=== PATIENT | female | born 1955 | race Caucasian/White ===

== ENCOUNTER 2018-10-30 14:02 | Inpatient (IN) | payer MEDICARE, BC ==
--- NOTE | 2018-10-30 17:17 | ED ---
Abdominal Pain/Female - HPI Summary HPI Summary: This patient is a 63 year old female presenting to [facility] with a chief complaint of abd pain since yesterday. Patient is recently recovering from a sinus infection with azithromycin. Yesterday, patient began having abdominal cramping. Patient states that it feels like gas that she cannot get rid of. The pain also radiates to bilateral shoulder blades. The pain is rated 5/10 in severity. Symptoms aggravated by nothing. Symptoms alleviated by nothing. The patient treated the sx with OTC medications ASPHALT BLENDER. Patient additionally reports nausea. Patient denies vomiting. - History of Current Complaint Chief Complaint: EDAbdPain Stated Complaint: TERRIBLE ABD CRAMPS PER PT Time Seen by Provider: 10/30/18 16:13 Hx Obtained From: Patient Onset/Duration: Sudden Onset, Still Present Timing: Constant Severity Currently: Moderate Pain Intensity: 5 Pain Scale Used: 0-10 Numeric Radiates: Yes Radiates to: Other - shoulder blades Character: Cramping Aggravating Factor(s): Nothing Alleviating Factor(s): Nothing Associated Signs and Symptoms: Positive: Nausea. Negative: Vomiting Allergies/Adverse Reactions: Allergies Allergy/AdvReac Type Severity Reaction Status Date / Time meperidine [From Demerol] Allergy Nausea And Verified 10/30/18 14:09 Vomiting pineapple Allergy Hives Verified 10/30/18 14:09 PMH/Surg Hx/FS Hx/Imm Hx Previously Healthy: No Endocrine/Hematology History: Reports: Hx Thyroid Disease Denies: Hx Diabetes Cardiovascular History: Reports: Hx Hypertension Respiratory History: Denies: Hx Asthma, Hx Chronic Obstructive Pulmonary Disease (COPD) GI History: Denies: Hx Ulcer EENT History: Denies: Hx Deafness, Hx Hearing Problem - Cancer History Hx Chemotherapy: No Hx Radiation Therapy: No - Surgical History Surgery Procedure, Year, and Place: cataracts - corneal transplants. 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 ankle, vitaly, tubal ligation, knee, t&a Infectious Disease History: No Infectious Disease History: Denies: Hx Clostridium Difficile, Hx Hepatitis, Hx Human Immunodeficiency Virus (HIV), Hx of Known/Suspected MRSA, Hx Shingles, Hx Tuberculosis, Traveled Outside the [place] in Last 30 Days - Family History Known Family History: Positive: Hypertension - Social History Lives: With Family Alcohol Use: None Hx Substance Use: No Substance Use Type: Reports: None Hx Tobacco Use: No Smoking Status (MU): Never Smoked Tobacco Review of Systems Negative: Fever Positive: Abdominal Pain, Nausea. Negative: Vomiting All Other Systems Reviewed And Are Negative: Yes Physical Exam - Summary Physical Exam Summary: Constitutional: Well-developed, Well-nourished, Alert. Skin: Warm, Dry HENT: Normocephalic; Atraumatic Eyes: Conjunctiva normal Neck: Musculoskeletal ROM normal neck. Cardio: Rhythm regular, rate normal, Heart sounds normal; Intact distal pulses; The pedal pulses are 2+ and symmetric. Radial pulses are 2+ and symmetric. Pulmonary/Chest wall: Effort normal. Abd: Soft, Musculoskeletal: Normal Lymph: Normal Neuro: Alert, Oriented x3 Psych: Mood and affect Normal Triage Information Reviewed: Yes Vital Signs On Initial Exam: Initial Vitals Temp Pulse Resp BP Pulse Ox 99.4 F 91 16 131/65 95 10/30/18 14:09 10/30/18 14:09 10/30/18 14:09 10/30/18 14:09 10/30/18 14:09 Vital Signs Reviewed: Yes Diagnostics - Vital Signs Vital Signs Temp Pulse Resp BP Pulse Ox 10/30/18 16:00 79 96 10/30/18 15:52 83 95 10/30/18 14:09 99.4 F 91 16 131/65 95 - Laboratory Result Diagrams: 10/30/18 18:59 10/30/18 18:59 Lab Statement: Any lab studies that have been ordered have been reviewed, and results considered in the medical decision making process. - CT CT Abd/Pel CT Interpretation Completed By: Radiologist Summary of CT Findings: CT Abd/Pel reveals, per radiologist, IMPRESSION: 1. Findings consistent with perforated viscus with moderate amount of free intraperitoneal air. Wall thickening of the distal stomach and proximal duodenum with adjacent inflammatory change raises the possibility of perforated peptic ulcer disease. Recommend surgical consultation. 2. No evidence of bowel obstruction 3. Inflammatory change adjacent to head of pancreas, likely secondary to adjacent distal gastric/duodenal pathology, but pancreatitis is not excluded. Suggest correlation with amylase and lipase levels. 4. Small subcapsular fluid collection in left lobe of liver, likely a small cyst cyst. However, small abscess is not excluded. 5. Post cholecystectomy.ED physician has reviewed this radiology report. - EKG 1735 Cardiac Rate: NL EKG Rhythm: Sinus Rhythm - 91 BPM Summary of EKG Findings: An EKG, taken 1735, reveals NSR (91 BPM), normal SD, normal QRS, normal QTc, normal axis, normal ST, flattened T-waves in aVF, nonspecific EKG. Abdominal Pain Fem Course/Dx - Course Course Of Treatment: This patient is a 63 year old female presenting to [facility] with a chief complaint of abd pain since yesterday. Patient is recently recovering from a sinus infection with azithromycin. Yesterday, patient began having abdominal cramping. Patient states that it feels like gas that she cannot get rid of. The pain is rated 5/10 in severity. An EKG, taken 1735, reveals NSR (91 BPM), normal SD, normal QRS, normal QTc, normal axis, normal ST , flattened T-waves in aVF, nonspecific EKG. CT Abd/Pel reveals, per radiologist , IMPRESSION: 1. Findings consistent with perforated viscus with moderate amount of free intraperitoneal air. Wall thickening of the distal stomach and proximal duodenum with adjacent inflammatory change raises the possibility of perforated peptic ulcer disease. Recommend surgical consultation. 2. No evidence of bowel obstruction 3. Inflammatory change adjacent to head of pancreas, likely secondary to adjacent distal gastric/duodenal pathology, but pancreatitis is not excluded. Suggest correlation with amylase and lipase levels. 4. Small subcapsular fluid collection in left lobe of liver, likely a small cyst cyst. However, small abscess is not excluded. 5. Post cholecystectomy.ED physician has reviewed this radiology report. Bloodwork Obtained. Urinalysis Obtained. In the ED course the patient was given NS 0.9% bolus IV, Zofran, Morphine, Piperacillin, Hydromorphone, Iohexol. The pt is hemodynamically stable, alert and oriented x3. We discussed patient care with Dr. Alamo (Surgery) at 1999 and they agreed to admit the patient. Patient will be admitted with a dx of perforated viscus. The patient is agreeable with this plan. - Diagnoses Provider Diagnoses: Perforated viscus - Provider Notifications Discussed Care Of Patient With: Efrain Alamo - Surgery Time Discussed With Above Provider: 20:00 - We discussed patient care with Dr. Alamo (Surgery) at 1999 and they agreed to admit the patient. Discharge - Sign-Out/Discharge Documenting (check all that apply): Patient Departure Patient Received Moderate/Deep Sedation with Procedure: No - Discharge Plan Condition: Stable Disposition: ADMITTED TO [facility] - Billing Disposition and Condition Condition: STABLE Disposition: Admitted to [facility] - Attestation Statements Document Initiated by Aidan: Yes Documenting Alejoibe: Garrison Kirk Provider For Whom Aidan is Documenting (Include Credential): Julianne Cortez MD Scribe Attestation: Garrison Castillo, scribed for Julianne Ball MD on 10/30/18 at 2148. Scribe Documentation Reviewed: Yes Provider Attestation: The documentation as recorded by the Garrison antonio accurately reflects the service I personally performed and the decisions made by me, Julianne Ball MD Status of Scribe Document: Viewed
[2018-10-30] MEDS ORDERED: Ondansetron INJ* 2 MG/ML VIAL IV ONE (17:33)
[2018-10-30] MEDS ORDERED: NS 0.9% 1000 ML** 1,000 ML IV ONE (17:33)
[2018-10-30] MEDS ORDERED: Morphine 4 MG/ML VIAL (1 ml) 4 MG/ML VIAL ONE (17:43)
[2018-10-30] MEDS: Morphine 4 MG/ML VIAL (1 ml) 4 MG/ML VIAL IV PRN (18:08)
[2018-10-30] MEDS ORDERED: HYDROmorphone INJ1* 1 MG/ML SYRINGE IV ONE (19:04)
[2018-10-30] MEDS ORDERED: Metoclopramide IV* 5 MG/ML 2 ML VIAL IV ONE (19:04)
[2018-10-30 19:06] LABS: ABS Basophils 0.1 10^3/ul (0-0.2); ABS Eosinophils 0 10^3/ul (0-0.6); ABS Lymphocytes 1.8 10^3/ul (1.0-4.8); ABS Monocytes 1.1 10^3/ul (0-0.8); ABS Neutrophils 14.3 10^3/ul (1.5-7.7); ABS Nucleated RBC 0 10^3/ul; Eosinophil % 0.1 %; Hematocrit 39 % (33-41); Hemoglobin 13.1 g/dL (12.0-16.0); Lymphocyte % 10.4 %; Mean Corpuscular HGB Conc 34 g/dL (31-36); Mean Corpuscular Hemoglobin 32 pg (27-31); Mean Corpuscular Volume 94 fL (80-97); Mean Platelet Volume 8.2 fL (7.4-10.4); Nucleated Red Blood Cells % 0; Platelet Count 238 10^3/uL (150-450); Red Blood Count 4.14 10^6 /uL (3.70-4.87); Red Cell Distribution Width 15 % (10.5-15); White Blood Count 17.3 10^3/uL (3.5-10.8)
[2018-10-30 19:24] LABS: Albumin 3.7 g/dL (3.2-5.2); C Reactive Protein 288.42 mg/L (<8.01); Calcium 10.1 mg/dL (8.6-10.3); EGFR African American 85.9 (>60); Globulin 3.6 g/dL (2-4); Total Bilirubin 1.3 mg/dL (0.2-1.0); Total Protein 7.3 g/dL (6.4-8.9)
[2018-10-30] MEDS ORDERED: Iohexol 300* (CONTRAST) 10 ML SDV IV ONE (19:27)
[2018-10-30 19:38] LABS: Troponin I 0.01 ng/mL (<0.04)
[2018-10-30] MEDS ORDERED: Piperacillin/Tazobac (*) 3.375 GM BAG ONE (20:50)
[2018-10-30] MEDS: ED Piperacillin/Tazobac 3.375 3.375 GM/100 ML PREMIX.SET IVPB ONE (20:52)
[2018-10-30] MEDS ORDERED: KETAMINE HCL* 50 MG/ML 10 ML VIAL ONE (20:53)
[2018-10-30] MEDS ORDERED: Midazolam* 1 MG/ML 5 ML VIAL (5 MG) ONE (20:53)
[2018-10-30] MEDS ORDERED: fentaNYL* 50 MCG/ML 2 ML VIAL (100 MCG VIAL) ONE (20:53)
[2018-10-30] MEDS ORDERED: Piperacillin/Tazobactam VIAL*) 3.375 GM VIAL (COMPD & OVERRIDE) IVPB ONE (21:23)
[2018-10-30] MEDS ORDERED: Bupivacaine 0.25% W/EPI* 10 ML SDV ONE (21:31)
[2018-10-30] MEDS ORDERED: Phenylephrine 40 MCG/ML SYRINGE ONE (22:19)
[2018-10-30] MEDS ORDERED: Phenylephrine 10 MG/ML VIAL* 1 ML VIAL ONE (22:19)
[2018-10-30] MEDS ORDERED: PROCHLORPERAZINE INJ 5 MG/ML 2 ML VIAL ONE (22:27)
[2018-10-30] MEDS ORDERED: Propofol* 10 MG/ML 20 ML BTL ONE (22:27)
[2018-10-30] MEDS ORDERED: Glycopyrrolate IV* 0.2 MG/ML 1 ML VIAL ONE ×2 (22:27)
[2018-10-30] MEDS ORDERED: Neostigmine Methylsulfate* 1 MG/ML 10 ML VIAL (1 mg/ml) ONE (22:27)
[2018-10-30] MEDS ORDERED: Dexamethasone IV* 4 MG/ML 1 ML (4 MG) ONE (22:27)
[2018-10-30] MEDS ORDERED: Morphine 4 MG/ML VIAL (1 ml) 4 MG/ML VIAL IV PRN (22:32)
[2018-10-30] MEDS ORDERED: PROCHLORPERAZINE INJ 5 MG/ML 2 ML VIAL IV PRN (22:32)
[2018-10-30] MEDS ORDERED: fentaNYL* 50 MCG/ML 2 ML VIAL (100 MCG VIAL) IV PRN (22:32)
[2018-10-30] MEDS ORDERED: Naloxone* 0.4 MG/ML 1 ML VIAL IV PRN (22:32)
[2018-10-30] MEDS ORDERED: Scopolamine 1.5 mg* PATCH TRANSDERM PRN (22:32)
[2018-10-30] MEDS ORDERED: DiMENhydriNATE IV* 50 MG/ML VIAL IV PUSH PRN (22:32)
[2018-10-30] MEDS ORDERED: Acetaminophen IV 1GM/100ML * 100 ML ONE (22:37)
[2018-10-30] MEDS ORDERED: Ondansetron INJ* 2 MG/ML VIAL IV PRN (22:42)
[2018-10-30] MEDS ORDERED: Metoprolol Tartrate IV* 1 MG/ML 5 ML VIAL ONE (22:47)
[2018-10-30] MEDS ORDERED: hydrALAZINE IV* 20 MG/ML VIAL ONE (22:47)
--- NOTE | 2018-10-30 23:12 | HP ---
CC: Dr. Diaz HISTORY AND PHYSICAL: DATE OF ADMISSION: 10/30/18 CHIEF COMPLAINT: Abdominal pain. HISTORY OF PRESENT ILLNESS: Ms. Khanna is a 63-year-old female who presents with about 24 hours of i ncreasing epigastric and upper abdominal pain. No nausea, no vomiting, no blood in the stool or urin e. No accident, injury or trauma. She was not had anything like this before. Of note, she saw Dr. Diaz a couple of days ago for what was thought to be a sinus infection, got put on Zithromax; one o f the side effects of Zithromax that she read was abdominal cramping, so she thought that was what wa s causing the pain when it first started. Currently she is not having any sinus pressure or cough or phlegm or upper respiratory drainage. PAST MEDICAL HISTORY: Reveals hypertension, Lise's thyroiditis for which she is now on Synthroi d. She has had corneal transplants and has hypertension. She has also had ankle surgery, cholecyste ctomy, tubal ligation, and said she needs knee replacement soon. MEDICATIONS: Include: 1. Levothyroxine 175 mcg once daily. 2. Atorvastatin 40 mg once daily. 3. Amlodipine 2.5 mg once daily. 4. Spironolactone 12.5 mg p.o. once daily. 5. Losartan 50 mg p.o. once daily. 6. Timolol ophthalmic gel 0.5% daily. 7. Aspirin 81 mg once daily. ALLERGIES: She quotes an allergy to DEMEROL, had a lot of nausea and vomiting. Questionable allergy to NAPROXEN, they have upset her stomach, and questionable allergy to HYDROCHLOROTHIAZIDE as they may have given her hypercalcemia. FAMILY HISTORY: Noncontributory. No bleeding tendencies or anesthesia reactions. SOCIAL HISTORY: She is a former smoker, quit about 30 years ago. She is here with her daughter. Giovanna villagran is , lives here in [place], and is currently retired. REVIEW OF SYSTEMS: Multisystem review is negative for any chest pain, heart pain, angina pain or oth er cardiac disease. She does have hypertension as noted above. No previous known ulcer disease. No hepatobiliary disease since her gallbladder was out. No emphysema, bronchitis or chronic lung diseas e. She had mild sinus problems last week, as noted. No colitis, irritable bowel, Crohn's disease or the like. No bleeding tendencies or anesthesia reactions with other surgeries. She does have the o rthopedic issues as noted above. No kidney stones or urinary history. PHYSICAL EXAMINATION GENERAL: She is a well-developed, well-nourished female consistent with stated age. She is obese. She does not appear acutely ill. VITAL SIGNS: Showed temperature 99.2, pulse 88 and regular, respirations 16 and unlabored, O2 satura tions 95% on 2 L nasal cannula, blood pressure 113/85. She is 5 feet 4 inches, 240 pounds, with a BM I of 41. NECK: Supple without any adenopathy. LUNGS: Clear bilaterally. HEART: Regular. I do not think I hear a murmur. ABDOMEN: Obese and quite tender in the epigastrium and right subcostal region, with mild guarding, n ot real rigidity. Lower abdomen is benign. There is some well-healed laparoscopic type incisions. EXTREMITIES: Well perfused and without edema. SKIN: Well perfused. She is not diaphoretic. DIAGNOSTIC STUDIES/LAB DATA: laboratory studies show a white blood count elevated at 17,000 with re latively normal differential. Electrolytes are essentially normal with C-reactive protein elevated a t 288. Creatinine is normal. Amylase is normal. CT scan shows free air in the upper abdomen and les ser sac and some inflammatory change in the periduodenal region. IMPRESSION: This is a 63-year-old female with acute abdominal pain, leukocytosis, and almost rigid a bdomen, with evidence that points towards a probable perforated ulcer. I discussed this with her and with her daughter and I recommend laparoscopy with washout and probable oversewing of the ulcer or patching of the ulcer. They understand the procedure, the rationale, the risks and the expected recovery, and agreed to proceed in the fashion outlined. We will do so exped iently, this evening. [id number]/[facility] #: [id number]
[2018-10-31] MEDS: Lactated Ringers 1000 ML Bag* 1,000 ML IV SCH ×3 (00:37→22:10)
--- NOTE | 2018-10-31 00:58 | OP ---
CC: Dr. Alamo; Dr. Diaz; Dr. Porfirio Mora OPERATIVE REPORT: DATE OF OPERATION: 10/30/18 DATE OF : 51 SURGEON: Dr. Alamo. CRUSHER LOADER EQUIPMENT OPERATOR: None. ANESTHESIOLOGIST: Dr. Palmer. ANESTHESIA: General anesthetic, local infiltration. PRE-OP DIAGNOSIS: Perforated peptic ulcer. POST-OP DIAGNOSIS: Perforated peptic ulcer. OPERATIVE PROCEDURE: Laparoscopic Rahul patch of perforated gastric ulcer. DESCRIPTION OF PROCEDURE: The patient was supine on the operating table. After adequate general ane sthetic, compression stockings, Flaco-Hugger warmer, and intravenous antibiotics, the abdomen was prep ped with antiseptic, draped in a sterile fashion. Local infiltrative anesthesia was administered in the left upper quadrant, 5 mm Visiport cannula was placed under direct vision into the peritoneal spa ce and insufflation was carried out with carbon dioxide. Additional cannulae of 5 mm supraumbilical and 8 mm epigastric were placed. There was fibrinopurulent exudate over the region of the antrum and over the omentum in that region as well as up on to the liver and the falciform ligament in that reg ion. There was what appeared to be about 0.5 cm perforation in the antrum and a lot of inflammatory change in this region. Because of the previous cholecystectomy, a lot of the omentum was adherent up on to the liver on that side, so that was not taken down. The area was irrigated and then interrupte d silk sutures used to bring the omentum down over this site. NG tube was placed as well. The oment um created excellent coverage over the site of the perforation. The operative field was then irrigat ed with additional warm saline solution. Free fluid was suctioned out. Everything was in good condi tion. The cannulae were removed. Pneumoperitoneum was allowed to escape and the incisions were clos ed with 5-0 Vicryl followed by Steri-Strips. She tolerated the procedure well, was awakened, and bro ught to recovery in good condition. COMPLICATIONS: No complications. DRAINS: No drains. SPECIMEN: No pathologic specimen. COUNTS: Sponge and instrument counts were correct. ESTIMATED BLOOD LOSS: Less than 30 mL. The patient did have an NG tube left at the end of the case. [id number]/[facility] #: [id number]
[2018-10-31] MEDS: ceFOXitin 2 GM IVPREMIX* 2 GM/50 ML BAG IVPB SCH ×4 (01:16→17:56)
[2018-10-31] MEDS: ED Piperacillin/Tazobac 3.375 3.375 GM/100 ML PREMIX.SET IVPB ONE (01:32)
[2018-10-31 05:03] LABS: Urine Appearance Clear; Urine Bacteria Absent (Absent); Urine Bilirubin Negative (Negative); Urine Blood 1+ (Negative); Urine Color Yellow; Urine Glucose Negative (Negative); Urine Ketones Trace (Negative); Urine Nitrite Negative (Negative); Urine Protein Negative (Negative); Urine Red Blood Cell Trace(0-2/hpf) (Absent); Urine Specific Gravity 1.032 (1.010-1.030); Urine Squamous Epithelial Cell Present (Absent); Urine Urobilinogen Negative (Negative); Urine White Blood Cell Absent (Absent)
[2018-10-31 05:24] LABS: ABS Basophils 0 10^3/ul (0-0.2); ABS Eosinophils 0 10^3/ul (0-0.6); ABS Lymphocytes 0.6 10^3/ul (1.0-4.8); ABS Monocytes 0.5 10^3/ul (0-0.8); ABS Neutrophils 15.4 10^3/ul (1.5-7.7); ABS Nucleated RBC 0 10^3/ul; Eosinophil % 0 %; Hematocrit 36 % (33-41); Hemoglobin 12.3 g/dL (12.0-16.0); Lymphocyte % 3.9 %; Mean Corpuscular HGB Conc 34 g/dL (31-36); Mean Corpuscular Hemoglobin 32 pg (27-31); Mean Corpuscular Volume 93 fL (80-97); Mean Platelet Volume 8.5 fL (7.4-10.4); Nucleated Red Blood Cells % 0; Platelet Count 188 10^3/uL (150-450); Red Blood Count 3.91 10^6 /uL (3.70-4.87); Red Cell Distribution Width 15 % (10.5-15); White Blood Count 16.5 10^3/uL (3.5-10.8)
[2018-10-31 05:38] LABS: Calcium 9.7 mg/dL (8.6-10.3); EGFR African American 116.9 (>60); EGFR Non-African American 96.6 (>60); Potassium 4.2 mmol/L (3.5-5.0)
--- NOTE | 2018-10-31 09:45 | PN ---
Progress Note - Progress Note Date of Service: 10/31/18 Note: POD#1 s/p perf ulcer Afeb, VS noted Voiding No N/V Pain much better Abd soft, min tender, incis clean Impr: Doing very well s/p perf ulcer repair Keep NGT today/NPO Cont abx UGI tomorrow to eval for leak If OK, D/C NGT and start liqs.
[2018-10-31] MEDS: Enoxaparin(*) 30 MG/0.3 ML SYR SUBCUT SCH (10:30)
[2018-10-31] MEDS: Pantoprazole IV* 40 MG IV SCH (12:15)
--- NOTE | 2018-10-31 13:32 | CONS ---
GASTROENTEROLOGY CONSULT: DATE: 10/31/18 CONSULTING PHYSICIANS: Efrain Alamo, Ruthie Diaz. REASON FOR CONSULT: Perforated gastric ulcer in a woman not treated over the lobsterman for any peptic complaints. 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 on 10/29/18. It seemed to ease off a little bit and she did eat in the afternoon. Pain came back severely on 10/30/18 and she went to the emergency room at 2 p.m. She was found to have free air and an elevated white count and was brought to the operating room where an antral ulcer was found and patched with omentum. There was omentum adherent to her 1999 cholecystectomy site. She has a history of taking some Tums once a month or so. It is hard to pin her down on that frequency. It is also hard to get a true read on her use of ibuprofen in recent months. She was taking ibuprofen daily for knee pain, then had her first cortisone shot in May 2018 and another in August with much reduced ibuprofen use on account of that. She has been on a baby aspirin for many years referencing her father dying of a heart attack at age 55 and other vascular disease in the family and she is quite devoted to that idea of prophylaxis. Her father had peptic ulcer disease with bleeding, but did not require surgery. PAST MEDICAL HISTORY: 1. Morbid obesity - with Weight Watchers, she says she has lost 30 pounds in the last year. 2. Laparoscopic cholecystectomy - 1999. 3. History of hypercalcemia - never pinned down as to a specific endocrine source and recent values in the last year have been normal which she says was been attributed to use of HCTZ 4. Hypothyroidism, on replacement. 5. Tubal ligation, 1987. MEDICATIONS: At home: Losartan 160, Spironolactone 25, Norvasc 2.5, Atorvastatin 40, Levothyroxine 175 mcg. SOCIAL HISTORY: She is and she and her are enthusiastic golfers following the [employer]. She has 2 children. REVIEW OF SYSTEMS: No history of seizure, syncope, TIA, CVA, chest pain, palpitations, acute hepatitis, renal stone or hematuria. She has had colonoscopies in 2004 and 2014, both negative. No skin disease or chronic blood disease. The only CBCs in the system are those associated with this admission. PHYSICAL EXAM: She is a morbidly obese woman, quite import clerk and alert and oriented. She is afebrile. She is in bed postop day 1. HEENT exam is unremarkable. She has no adenopathy. Lungs are clear with equivalent breath sounds. Heart sounds are regular. The abdomen is obese with an incision. Bowel sounds are absent. There is remarkably little tenderness. Extremities show obesity, but no edema. She moves all 4 extremities equally. IMPRESSION: This 63-year-old woman with a perforated ulcer, probably has it due to a personal susceptibility to NSAID effect with aspirin playing a substantial role such that long-term she should be on some sort of acid suppression along with the aspirin. She is very motivated to continue aspirin eventually. A role of Helicobacter pylori will be explored. She will end up going home on an acid radha to be seen in the office in about 6 weeks and upper endoscopy probably about 3 months. [id number]/[facility] #: [id number] TANYA
[2018-10-31] MEDS: HYDROmorphone INJ1* 1 MG/ML SYRINGE IV SLOW PU PRN ×4 (13:47→23:29)
[2018-10-31] MEDS: PTO:Loteprednol 0.5% OPH.SUSP(NF) 5 ML BTL BOTH EYES SCH (20:02)
[2018-10-31] MEDS: Morphine 4 MG/ML VIAL (1 ml) 4 MG/ML VIAL IV PRN (23:04)
[2018-10-31] MEDS: PTO: Timolol 0.5% OPTH.SOL* BTL BOTH EYES SCH (23:46)
[2018-11-01] MEDS: ceFOXitin 2 GM IVPREMIX* 2 GM/50 ML BAG IVPB SCH ×3 (01:23→17:20)
[2018-11-01] MEDS: Lactated Ringers 1000 ML Bag* 1,000 ML IV SCH (07:28)
[2018-11-01] MEDS ORDERED: Lactated Ringers 1000 ML Bag* 1,000 ML IV SCH (09:27)
--- NOTE | 2018-11-01 09:32 | PN ---
Progress Note - Progress Note Date of Service: 11/01/18 Note: POD#2 S/P perf ulcer Afeb, VS OK UO larg, NG small Feels well, min pain Hungry Ambulating well Abd benign Impr: S/P perf gastric ulcer Resolving well Await UGI If no leak, D/C NGT and start clears Decrease IVF Dr Mora consult noted Meds per hosptialist Disch 1-2 days??
[2018-11-01] MEDS: PTO: Timolol 0.5% OPTH.SOL* BTL BOTH EYES SCH ×2 (10:11→21:26)
[2018-11-01] MEDS: Enoxaparin(*) 30 MG/0.3 ML SYR SUBCUT SCH (10:11)
[2018-11-01] MEDS: HYDROmorphone INJ1* 1 MG/ML SYRINGE IV SLOW PU PRN ×3 (10:12→21:34)
[2018-11-01] MEDS: Pantoprazole IV* 40 MG IV SCH (11:13)
[2018-11-01] MEDS: PTO:Loteprednol 0.5% OPH.SUSP(NF) 5 ML BTL BOTH EYES SCH (17:20)
[2018-11-02] MEDS: ceFOXitin 2 GM IVPREMIX* 2 GM/50 ML BAG IVPB SCH (01:39)
[2018-11-02] MEDS: HYDROmorphone INJ1* 1 MG/ML SYRINGE IV SLOW PU PRN (03:52)
[2018-11-02] MEDS: Levothyroxine TAB* 175 MCG TAB PO SCH (06:09)
[2018-11-02 06:50] LABS: ABS Basophils 0 10^3/ul (0-0.2); ABS Eosinophils 0.1 10^3/ul (0-0.6); ABS Lymphocytes 1.4 10^3/ul (1.0-4.8); ABS Monocytes 0.6 10^3/ul (0-0.8); ABS Neutrophils 6.4 10^3/ul (1.5-7.7); ABS Nucleated RBC 0 10^3/ul; Eosinophil % 1.2 %; Hematocrit 34 % (33-41); Hemoglobin 11.6 g/dL (12.0-16.0); Lymphocyte % 16.8 %; Mean Corpuscular HGB Conc 34 g/dL (31-36); Mean Corpuscular Hemoglobin 32 pg (27-31); Mean Corpuscular Volume 94 fL (80-97); Mean Platelet Volume 8.6 fL (7.4-10.4); Nucleated Red Blood Cells % 0.1; Platelet Count 201 10^3/uL (150-450); Red Blood Count 3.67 10^6 /uL (3.70-4.87); Red Cell Distribution Width 15 % (10.5-15); White Blood Count 8.5 10^3/uL (3.5-10.8)
--- NOTE | 2018-11-02 08:06 | PN ---
Progress Note - Progress Note Date of Service: 11/02/18 Note: POD#3 s/p perf ulcer Afeb, VS OK Catherine liqs, no N/V Pain control good Voiding, Passed stool Ambulating well Breathing easy and unlabored Abd obese, soft, mild epig tendernes No peritonitis Incis clean Impr: Recovering well from perf ulcer Home later today or tomorrow Full liquids x 2 days, then soft diet 1 week PPI and F/U EGD per Dr Mora Stop IV abx and IVF
[2018-11-02] MEDS: HYDROcodone/ACET. 7.5/325 LIQ* 15 ML UDC PO PRN ×2 (09:36→16:40)
[2018-11-02] MEDS: Enoxaparin(*) 30 MG/0.3 ML SYR SUBCUT SCH (09:37)
[2018-11-02] MEDS: PTO: Timolol 0.5% OPTH.SOL* BTL BOTH EYES SCH ×2 (09:38→22:34)
[2018-11-02] MEDS: Pantoprazole IV* 40 MG IV SCH (09:38)
[2018-11-02] MEDS: PTO:Loteprednol 0.5% OPH.SUSP(NF) 5 ML BTL BOTH EYES SCH (16:39)
[2018-11-02] MEDS: Morphine 4 MG/ML VIAL (1 ml) 4 MG/ML VIAL IV PRN (16:39)
[2018-11-02] MEDS ORDERED: Scopolamine PATCH Remove* 1 NOTE MISC PATCH OFF ONE (22:34)
[2018-11-03] MEDS: Levothyroxine TAB* 175 MCG TAB PO SCH (05:43)
[2018-11-03] MEDS: PTO: Timolol 0.5% OPTH.SOL* BTL BOTH EYES SCH (08:19)
[2018-11-03] MEDS: Enoxaparin(*) 30 MG/0.3 ML SYR SUBCUT SCH (08:20)
[2018-11-03 08:35] VITALS: BP 134/66
[2018-11-03] MEDS: Pantoprazole IV* 40 MG IV SCH (10:38)
--- NOTE | 2018-11-03 11:48 | DS ---
CC: Dr. Alamo; Dr. Diaz; Dr. Mora* DISCHARGE SUMMARY: DATE OF ADMISSION: 10/30/18 DATE OF DISCHARGE: 11/03/18 PRINCIPAL ADMITTING DIAGNOSIS: Perforated peptic ulcer. OPERATIVE PROCEDURE ON THIS ADMISSION: Laparoscopic repair of perforated peptic ulcer. COMPLICATIONS: None. HOSPITAL COURSE: The patient is a 63-year-old female who presented to the emergency room and was found to have a perforated peptic ulcer. She was taken to the operating room, had repair of the ulcer laparoscopically. Had an uneventful postop recovery with gradual improvement in pain control, appetite, bowel function, and ambulation. The second day after surgery, she had an upper GI series which showed no evidence of leak, therefore the nasogastric tube was removed and she had onset of oral intake. She had gradual improvement in her oral intake and was discharged home on 11/03/18, tolerating a soft diet and ambulating well and having very good pain control. She was also seen in consultation by Dr. Mora who will follow up with her ulcer disease as an outpatient. [id number]/[facility] #: [id number] MTDD
--- NOTE | 2018-11-03 17:25 | PN ---
Progress Note - Progress Note Date of Service: 11/03/18 Note: (late entry; patient seen this a.m. with Dr. Alamo) S: Much better. Catherine soft/semisolid diet well. No pain. No N/V. O: afeb; VSS Abd: (per Dr. Alamo) soft, nontender; lap sites healing well under steristrips A: s/p laparoscopic repair perforated gastric ulcer, doing well; ready for d/c P: home today on PPI; surgical f/u next week; GI f/u w/ Dr. Mora 4-6 wks; see dictated d/c summary
== END 2018-11-03 11:00 | disposition home or self-care (01) | DRG 330 ==
LOC: ED 14:02 → OR 21:19 → SSU 22:48
PROVIDERS: ADMIT Surgery; ATTEND Surgery
PROC: 0DU947Z Supplement Duodenum with Autologous Tissue Substitute, Percutaneous Endoscopic Approach (ICD-10-PCS; principal; 2018-10-31)
DX: K25.6 Chronic or unspecified gastric ulcer with both hemorrhage and perforation (principal); Z68.41 Body mass index [BMI] 40.0-44.9, adult; I10 Essential (primary) hypertension; E06.3 Autoimmune thyroiditis; E66.01 Morbid (severe) obesity due to excess calories; E03.9 Hypothyroidism, unspecified; Z88.8 Allergy status to other drugs, medicaments and biological substances; Z91.018 Allergy to other foods; Z98.42 Cataract extraction status, left eye; Z98.41 Cataract extraction status, right eye; Z94.7 Corneal transplant status; Z90.49 Acquired absence of other specified parts of digestive tract; Z98.51 Tubal ligation status; Z82.49 Family history of ischemic heart disease and other diseases of the circulatory system; Z88.6 Allergy status to analgesic agent
CPT/HCPCS: 36415; 74177; 74246; 80048; 80053; 81003; 81015; 82150; 83605; 83690; 84484; 85025; 86140; 87040; 93005; 99284; A9270-GY; J0360; J0694; J0780; J1100; J1170; J1650; J2250; J2270; J2405; J2543; J2704; J2710; J2765; J3010; J3490; Q9967

== ENCOUNTER 2018-11-12 19:04 | Inpatient (IN) | payer MEDICARE, BC ==
--- OUTSIDE RECORDS SUMMARY | 2018-11-12 19:49 | XMS REPORT | Continuity of Care Document ---
:1955 External Reference #:[id number] Author Name Leanna Young Care Team Providers Name Role Phone Ruthie Diaz MD Primary Care Physician Unavailable Payers Date Identification Numbers Payment Provider Subscriber Policy Number: [id number] Medicare Cora Khanna PayID: [id number] [address] [place] [address] Effective: 2011 Policy Number: [id number] [facility] Cora Khanna PayID: [id number] [address] [address] [place] [address] Advance Directives Description No Information Available Problems Active Problems Provider Date Benign essential hypertension Ruthie Diaz M.D. Onset: 07/31/2010 Hyperlipidemia Ruthie Diaz M.D. Onset: 07/31/2010 Hypothyroidism Ruthie Diaz M.D. Onset: 07/31/2010 Essential hypertension Ruthie Diaz M.D. Onset: 05/31/2015 Localized, primary osteoarthritis of the Verenice Conti M.D. Onset: 06/18/2015 pelvic region and thigh Localized, primary osteoarthritis Verenice Conti M.D. 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 01/10/2013 Naproxen stomach problems 07/23/2015 Medications Active Medications SIG Qnty Indications Ordering Provider Date [facility] every day M.D. Losartan Potassium 1 by mouth 90tabs I10 [facility], 02/26/2018 50mg every day M.D. Tablets Spironolactone take 1/2 tablet 45tabs I10 [facility], 12/23/2012 25mg Tablets by mouth once M.D. daily Amlodipine Besylate take 1 tablet 90tabs I10 [facility], 07/19/2012 2.5mg by mouth once M.D. Tablets daily Wrist Brace/Suede 2units 782.0 [facility], 07/17/2011 Finish/Right And Left M.D. Misc Atorvastatin Calcium take 1 tablet 90tabs E78.2 [facility], 2010 40mg by mouth once M.D. Tablets daily Levothyroxine Sodium take 1 tablet 90tabs [facility], 12/26/2009 175mcg by mouth once M.D. Tablets daily Lotemax Noble, 0.5% Suspension MD John Timolol Maleate Noble, Ophthalmic Gel Forming MD John 0.5% GFS History Medications Doxycycline Hyclate 1 tab by mouth 14tabs 01.90 [facility] 10/29/2018 - twice a day for 7 Jacobo Diaz Unknown 100mg Tablets days Azithromycin 2 tabs by mouth on 6tabs J01.90 [facility] 10/28/2018 - 250mg day 1; 1 tab by Jacobo Diaz 10/29/2018 Tablets mouth every day on days 2-5 Cheratussin ac take 5-[address] [place] [address] 10/28/2018 - milliliters every [place] Unknown 100-10mg/5ML Syrup 4-6 hours as needed for cough. Irbesartan 1 by mouth every 90tabs I10 [facility] 02/15/2018 - 150mg day Jacobo Diaz 02/26/2018 Tablets Doxycycline Hyclate 1 tab by mouth 20tabs R05 Ruthie 10/08/2017 - twice a day for 10 Cotton, M.DSkyler 10/18/2017 100mg Tablets days Cheratussin ac take 5-10 118ml R05 Ruthie 10/08/2017 - milliliters every Cotton, M.D. 10/18/2017 100-10mg/5ML Syrup 4-6 hours as needed for cough. Valsartan take 1 tablet by 90tabs I10 Ruthie 06/22/2015 - 160mg mouth once daily Joe, M.D. 02/15/2018 Tablets Naproxen 1 tablet with food 60tabs M25.552 Verenice Conti, 06/18/2015 - 500mg by mouth twice a M.D. 07/23/2015 Tablets day Cheratussin ac take 5-10 118ml 488.82 Billy Jacinto NP 08/16/2014 - milliliters every 08/23/2014 100-10mg/5ML Syrup 4-6 hours as needed for cough. Tamiflu take 75 mg by 10caps 487.1 Ruthie 08/16/2014 - 75mg mouth twice a day Joe M.DSkyler 11/17/2014 Capsules Medrol (Beni) as directed 1Pak 719.45 Dominga Monterroso, 03/21/2014 - 4mg N.P. 03/27/2014 Tablets Tramadol HCL 1 tablet three to 30tabs 719.45 Dominga Monterroso, 03/21/2014 - 50mg four times daily N.P. 03/31/2014 Tablets as needed Aspirin 1 po qday Dominga Monterroso, 04/26/2013 - 81mg N.P. 11/10/2018 Diovan take 1 tablet by 90tabs Ruthie 12/19/2012 - 160mg mouth once daily Joe M.DSkyler 06/22/2015 Tablets Valsartan/Hydrochlo take 1 tablet by 30tabs Ruthie 07/19/2012 - rothiazide mouth once daily Joe M.DSkyler 12/19/2012 160-25mg Tablets Cipro 1 po bid for 7 14tabs Ruthie 09/25/2011 - 500mg Tablets days Joe M.DSkyler 10/02/2011 Diovan HCT take 1 tablet by 30tabs Ruthie 08/01/2010 - 160-25mg mouth once daily Cotton, M.D. 07/19/2012 Tablets Diovan HCT 1 tablet once 30tabs Ruthie 01/18/2010 - daily Cotton, M.D. 08/01/2010 160-12.5mg Tablets Diovan HCT 1 tablet once 30tabs Ruthie 12/26/2009 - daily Cotton, M.D. 01/18/2010 80-12.5mg Tablets Simvastatin take 1 tablet by 90tabs 401.1 Ruthie 12/26/2009 - 80mg mouth once daily Cotton, M.D. 07/17/2011 Tablets Prednisolone 1 drop 3-4 times Unknown - Acetate daily 12/04/2016 1% Suspension Timolol Maleate Unknown - 06/18/2018 Solution Medications Administered in Office Medication SIG Qnty Indications Ordering Provider Date Depomedrol 40MG Verenice Conti M.D. 09/13/2018 Injection Depomedrol 40MG Verenice Conti M.D. 09/13/2018 Injection Depomedrol 40MG Verenice Conti M.D. 06/09/2018 Injection Depomedrol 40MG Verenice Conti M.D. 06/09/2018 Injection Depomedrol 80MG Verenice Conti M.D. 06/18/2015 Injection Immunizations CPT Code Status Date Vaccine Lot # [id number] Given 04/01/2018 Influenza Virus Vaccine, Quadrivalent, Split, Preservative Free [id number] Given 04/20/2017 Influenza Virus Vaccine, Quadrivalent, Split, Preservative Free Q2035 Given 03/31/2016 Afluria Vaccine Q2035 Given 04/23/2015 Afluria Vaccine [id number] Given 05/30/2014 Zoster (Zostavax) [id number] Given 05/30/2014 Tdap - Tetanus/Diptheria/Acellular Pertussis [id number] Q2037 Given 04/17/2014 Fluvirin Im 3Yrs And Older Q2035 Given 05/06/2012 Afluria Vaccine Vital Signs Date Vital Result Comment 11/12/2018 10:04am Heart Rate 76 /min Respiratory Rate 16 /min Body Temperature 99.1 F 11/10/2018 3:37pm Height 64 inches 5'4" Weight 248.00 lb Heart Rate 65 /min BP Systolic Sitting 130 mmHg BP Diastolic Sitting 78 mmHg BMI (Body Mass Index) 42.6 kg/m2 11/10/2018 11:08am Heart Rate 60 /min Respiratory Rate 16 /min Body Temperature 96.8 F 10/28/2018 9:14am Height 64 inches 5'4" Weight 249.00 lb Heart Rate 68 /min BP Systolic Sitting 134 mmHg BP Diastolic Sitting 76 mmHg O2 % BldC Oximetry 98 % BMI (Body Mass Index) 42.7 kg/m2 09/13/2018 11:05am Height 64 inches 5'4" Weight 248.00 lb Heart Rate 63 /min BP Systolic 136 mmHg BP Diastolic 88 mmHg Respiratory Rate 16 /min Body Temperature 96.6 F Pain Level 6 BMI (Body Mass Index) 42.6 kg/m2 07/02/2018 10:32am Height 64 inches 5'4" Weight 248.00 lb BP Systolic 128 mmHg BP Diastolic 82 mmHg Body Temperature 97.8 F BMI (Body Mass Index) 42.6 kg/m2 06/18/2018 9:18am Height 64 inches 5'4" Weight 251.00 lb Heart Rate 52 /min BP Systolic 115 mmHg home machine BP Diastolic 70 mmHg home machine BP Systolic Sitting 142 mmHg BP Diastolic Sitting 81 mmHg O2 % BldC Oximetry 94 % BMI (Body Mass Index) 43.1 kg/m2 06/09/2018 9:09am Height 64 inches 5'4" Weight 255.00 lb BP Systolic 126 mmHg BP Diastolic 80 mmHg Body Temperature 98.3 F BMI (Body Mass Index) 43.8 kg/m2 12/17/2017 8:32am Height 63 inches 5'3" Weight 254.00 lb Heart Rate 58 /min BP Systolic 138 mmHg BP Diastolic 94 mmHg BP Systolic Sitting 152 mmHg R arm manual BP Diastolic Sitting 90 mmHg R arm manual BP Systolic Standing 145 mmHg L arm manual BP Diastolic Standing 90 mmHg L arm manual Body Temperature 96.9 F O2 % BldC Oximetry 98 % BMI (Body Mass Index) 45.0 kg/m2 10/08/2017 12:04pm Heart Rate 62 /min BP Systolic Sitting 130 mmHg BP Diastolic Sitting 85 mmHg Body Temperature 97.9 F O2 % BldC Oximetry 97 % 09/29/2017 3:56pm Height 63 inches 5'3" Heart Rate 61 /min BP Systolic 138 mmHg BP Diastolic 88 mmHg Respiratory Rate 16 /min Pain Level 4 06/15/2017 3:16pm Height 63 inches 5'3" Weight 269.00 lb Heart Rate 81 /min BP Systolic 124 mmHg BP Diastolic 80 mmHg Body Temperature 97.0 F O2 % BldC Oximetry 97 % BMI (Body Mass Index) 47.6 kg/m2 12/04/2016 3:38pm Weight 271.50 lb Heart Rate 64 /min BP Systolic Sitting 144 mmHg BP Diastolic Sitting 80 mmHg Respiratory Rate 16 /min O2 % BldC Oximetry 98 % 08/19/2016 4:17pm Height 63 inches 5'3" Heart Rate 57 /min BP Systolic 140 mmHg BP Diastolic 88 mmHg Body Temperature 97.9 F O2 % BldC Oximetry 98 % 06/06/2016 2:33pm Height 63 inches 5'3" Weight 271.00 lb Heart Rate 66 /min BP Systolic Sitting 124 mmHg BP Diastolic Sitting 82 mmHg Respiratory Rate 15 /min Body Temperature 97.6 F O2 % BldC Oximetry 98 % BMI (Body Mass Index) 48.0 kg/m2 11/29/2015 7:31am Height 63 inches 5'3" Weight 256.00 lb Heart Rate 58 /min BP Systolic Sitting 128 mmHg BP Diastolic Sitting 88 mmHg Body Temperature 97.6 F O2 % BldC Oximetry 95 % BMI (Body Mass Index) 45.3 kg/m2 06/18/2015 8:04am Height 63 inches 5'3" Weight 246.00 lb Heart Rate 81 /min BP Systolic 126 mmHg BP Diastolic 76 mmHg Pain Level 5 BMI (Body Mass Index) 43.6 kg/m2 05/31/2015 4:00pm Height 63 inches 5'3" Weight 251.00 lb Heart Rate 58 /min BP Systolic Sitting 128 mmHg BP Diastolic Sitting 84 mmHg Respiratory Rate 14 /min Body Temperature 97.0 F O2 % BldC Oximetry 98 % BMI (Body Mass Index) 44.5 kg/m2 12/01/2014 4:15pm Weight 275.50 lb Heart Rate 58 /min BP Systolic Sitting 150 mmHg BP Diastolic Sitting 82 mmHg 08/16/2014 4:00pm Height 64 inches 5'4" Weight 270.00 lb Heart Rate 66 /min BP Systolic 127 mmHg BP Diastolic 68 mmHg Body Temperature 99.3 F O2 % BldC Oximetry 95 % BMI (Body Mass Index) 46.3 kg/m2 05/30/2014 11:39am Height 64 inches 5'4" Weight 270.50 lb Heart Rate 65 /min BP Systolic Sitting 132 mmHg BP Diastolic Sitting 78 mmHg Body Temperature 97.1 F O2 % BldC Oximetry 96 % BMI (Body Mass Index) 46.4 kg/m2 03/21/2014 2:25pm Height 64 inches 5'4" Weight 265.00 lb Heart Rate 72 /min BP Systolic Sitting 160 mmHg BP Diastolic Sitting 98 mmHg BMI (Body Mass Index) 45.5 kg/m2 10/20/2013 4:19pm Weight 265.00 lb Heart Rate 68 /min BP Systolic Sitting 128 mmHg BP Diastolic Sitting 82 mmHg Respiratory Rate 14 /min 07/26/2013 3:41pm Heart Rate 76 /min BP Systolic 142 mmHg BP Diastolic 84 mmHg 07/19/2013 10:09am Height 64 inches 5'4" Weight 273.00 lb Heart Rate 76 /min BP Systolic Sitting 150 mmHg BP Diastolic Sitting 98 mmHg BMI (Body Mass Index) 46.9 kg/m2 04/26/2013 8:40am Heart Rate 62 /min BP Systolic 126 mmHg BP Diastolic 78 mmHg 04/14/2013 8:41am Heart Rate 62 /min BP Systolic Sitting 140 mmHg BP Diastolic Sitting 90 mmHg 01/10/2013 3:34pm Weight 261.00 lb Heart Rate 76 /min BP Systolic Sitting 124 mmHg BP Diastolic Sitting 72 mmHg 08/19/2012 10:06am Height 64.5 inches 5'4.50" Weight 273.00 lb Heart Rate 74 /min BP Systolic Sitting 128 mmHg BP Diastolic Sitting 72 mmHg Body Temperature 98.0 F BMI (Body Mass Index) 46.1 kg/m2 07/19/2012 10:21am Height 64.5 inches 5'4.50" Weight 270.00 lb Heart Rate 76 /min BP Systolic Sitting 150 mmHg BP Diastolic Sitting 88 mmHg BMI (Body Mass Index) 45.6 kg/m2 03/15/2012 4:04pm Height 64.5 inches 5'4.50" Weight 261.00 lb Heart Rate 74 /min BP Systolic Sitting 130 mmHg BP Diastolic Sitting 82 mmHg BMI (Body Mass Index) 44.1 kg/m2 09/24/2011 12:02pm Height 64.5 inches 5'4.50" Heart Rate 76 /min BP Systolic Sitting 122 mmHg BP Diastolic Sitting 72 mmHg 09/15/2011 8:47am Height 64.5 inches 5'4.50" Weight 269.00 lb Heart Rate 76 /min BP Systolic Sitting 128 mmHg BP Diastolic Sitting 72 mmHg BMI (Body Mass Index) 45.5 kg/m2 07/17/2011 1:43pm Height 64.5 inches 5'4.50" Weight 266.00 lb Heart Rate 72 /min BP Systolic Sitting 122 mmHg BP Diastolic Sitting 76 mmHg BMI (Body Mass Index) 44.9 kg/m2 10/29/2010 4:00pm Heart Rate 60 /min BP Systolic 130 mmHg large cuff BP Diastolic 82 mmHg large cuff 08/01/2010 3:23pm Weight 247.75 lb Heart Rate 60 /min BP Systolic 150 mmHg BP Diastolic 86 mmHg 04/30/2010 4:31pm Heart Rate 68 /min BP Systolic 140 mmHg BP Diastolic 90 mmHg Body Temperature 98.6 F 01/18/2010 8:03pm Height 63.5 inches 5'3.50" Weight 244.75 lb Heart Rate 60 /min BP Systolic 162 mmHg BP Diastolic 96 mmHg BMI (Body Mass Index) 42.7 kg/m2 12/28/2009 9:51pm Height 64 inches 5'4" Weight 239.25 lb Heart Rate 62 /min BP Systolic 134 mmHg BP Diastolic 82 mmHg BMI (Body Mass Index) 41.1 kg/m2 Results Test Date Facility Test Result H/L Range Note CBC Auto Diff 10/30/2018 [facility] White Blood 17.3 10^3/uL High 3.5-10.[address] [place] [address] [phone] Red Blood Count 4.14 10^6/uL N 3.70-4.87 Hemoglobin 13.1 g/dL N 12.0-16.0 Hematocrit 39 % N 33-41 Mean Corpuscular Volume 94 fL N 80-97 Mean Corpuscular Hemoglobin 32 pg High 27-31 Mean Corpuscular HGB Conc 34 g/dL N 31-36 Red Cell Distribution Width 15 % N 10.5-15 Platelet Count 238 10^3/uL N 150-450 Mean Platelet Volume 8.2 fL N 7.4-10.4 Abs Neutrophils 14.3 10^3/uL High 1.5-7.7 Abs Lymphocytes 1.8 10^3/uL N 1.0-4.8 Abs Monocytes 1.1 10^3/uL High 0-0.8 Abs Eosinophils 0 10^3/uL N 0-0.6 Abs Basophils 0.1 10^3/uL N 0-0.2 Abs Nucleated RBC 0 10^3/uL Granulocyte % 82.8 % Lymphocyte % 10.4 % Monocyte % 6.3 % Eosinophil % 0.1 % Basophil % 0.4 % Nucleated Red Blood Cells % 0 Comp Metabolic Panel 10/30/2018 [facility] Sodium 134 mmol/L Low 135-145 [address] [place] [address] [phone] Potassium 4.0 mmol/L N 3.5-5.0 Chloride 99 mmol/L Low 101-111 Co2 Carbon Dioxide 27 mmol/L N 22-32 Anion Gap 8 mmol/L N 2-11 Glucose 111 mg/dL High 70-100 Blood Urea Nitrogen 13 mg/dL N 6-24 Creatinine 0.81 mg/dL N 0.51-0.95 BUN/Creatinine Ratio 16.0 N 8-20 Calcium 10.1 mg/dL N 8.6-10.3 Total Protein 7.3 g/dL N 6.4-8.9 Albumin 3.7 g/dL N 3.2-5.2 Globulin 3.6 g/dL N 2-4 Albumin/Globulin Ratio 1.0 N 1-3 Total Bilirubin 1.30 mg/dL High 0.2-1.0 Alkaline Phosphatase 25 U/L Low 34-104 Alt 27 U/L N 7-52 Ast 23 U/L N 13-39 Egfr Non- 71.0 >60 Egfr 85.9 >60 1 Laboratory test finding 10/30/2018 [facility] Amylase 26 U/L Low 29-103 [address] [place] [address] [phone] Lipase 15 U/L N 11.0-82.0 C Reactive Protein 288.42 mg/L High <8.01 Troponin-I (TnI) 0.01 ng/mL <0.04 2 Lactic Acid 1.2 mmol/L N 0.5-2.0 3 Blood Culture SEE RESULT BELOW 4 Lipid Profile 06/16/2018 [facility] Triglycerides 105 mg/dL 5 (Trig/Chol/HDL) [address] [place] [address] [phone] Cholesterol 209 mg/dL 6 HDL Cholesterol 51.2 mg/dL 7 LDL Cholesterol 137 mg/dL 8 Comp Metabolic Panel 06/16/2018 [facility] Sodium 140 mmol/L N 135-145 [address] [place] [address] [phone] Potassium 4.4 mmol/L N 3.5-5.0 Chloride 106 mmol/L N 101-111 Co2 Carbon Dioxide 27 mmol/L N 22-32 Anion Gap 7 mmol/L N 2-11 Glucose 89 mg/dL N 70-100 Blood Urea Nitrogen 19 mg/dL N 6-24 Creatinine 0.71 mg/dL N 0.51-0.95 BUN/Creatinine Ratio 26.8 High 8-20 Calcium 10.3 mg/dL N 8.6-10.3 Total Protein 7.0 g/dL N 6.4-8.9 Albumin 4.2 g/dL N 3.2-5.2 Globulin 2.8 g/dL N 2-4 Albumin/Globulin Ratio 1.5 N 1-3 Total Bilirubin 0.60 mg/dL N 0.2-1.0 Alkaline Phosphatase 34 U/L N 34-104 Alt 22 U/L N 7-52 Ast 15 U/L N 13-39 Egfr Non- 82.9 >60 Egfr 100.3 >60 9 Laboratory test 06/16/2018 [facility] Hemoglobin A1c 6.0 % High 4.0-5.6 10 finding 101 (Glyco HGB) [place] [address] [phone] TSH (Thyroid Stim Horm) 1.19 mcIU/mL N 0.34-5.60 11 Pthi 12/17/2017 [facility] Calcium (PTH Intact) 10.3 mg/dL N 8.6-10.[address] [place] [address] [phone] PTH Intact 5.6 pmol/L N 1.3-9.3 Basic Metabolic Panel 12/17/2017 [facility] Sodium 139 mmol/L N 139-145 [address] [place] [address] [phone] Potassium 4.5 mmol/L N 3.5-5.0 Chloride 105 mmol/L N 101-111 Co2 Carbon Dioxide 27 mmol/L N 22-32 Anion Gap 7 mmol/L N 2-11 Glucose 103 mg/dL High 70-100 Blood Urea Nitrogen 15 mg/dL N 6-24 Creatinine 0.71 mg/dL N 0.51-0.95 BUN/Creatinine Ratio 21.1 High 8-20 Calcium 10.0 mg/dL N 8.6-10.3 Egfr Non- 82.9 >60 Egfr 106.6 >60 12 Lipid Profile 06/09/2017 [facility] Triglycerides 155 mg/dL 13 (Trig/Chol/HDL) [address] [place] [address] [phone] Cholesterol 193 mg/dL 14 HDL Cholesterol 40.4 mg/dL 15 LDL Cholesterol 122 mg/dL 16 Comp Metabolic Panel 06/09/2017 [facility] Sodium 137 mmol/L N 133-145 [address] [place] [address] [phone] Potassium 4.0 mmol/L N 3.5-5.0 Chloride 104 mmol/L N 101-111 Co2 Carbon Dioxide 26 mmol/L N 22-32 Anion Gap 7 mmol/L N 2-11 Glucose 107 mg/dL High 70-100 Blood Urea Nitrogen 16 mg/dL N 6-24 Creatinine 0.69 mg/dL N 0.51-0.95 BUN/Creatinine Ratio 23.2 High 8-20 Calcium 10.6 mg/dL High 8.6-10.3 Total Protein 6.8 g/dL N 6.4-8.9 Albumin 4.1 g/dL N 3.2-5.2 Globulin 2.7 g/dL N 2-4 Albumin/Globulin Ratio 1.5 N 1-3 Total Bilirubin 0.80 mg/dL N 0.2-1.0 Alkaline Phosphatase 31 U/L Low 34-104 Alt 21 U/L N 7-52 Ast 19 U/L N 13-39 Egfr Non- 85.9 >60 Egfr 110.5 >60 17 Laboratory test 06/09/2017 [facility] Hemoglobin A1c 5.8 % High 4.0-5.6 18 finding 101 (Glyco HGB) [place] [address] [phone] TSH (Thyroid Stim Horm) 0.62 mcIU/mL N 0.34-5.60 19 Laboratory test 11/27/2016 [facility] Hemoglobin A1c 5.9 % N Less than 20 finding 101 (Glyco HGB) 6.0 [place] [address] [phone] TSH (Thyroid Stim Horm) 1.07 mcIU/mL N 0.34-5.60 21 Basic Metabolic Panel 11/27/2016 [facility] Sodium 139 mmol/L N 133-145 [address] [place] [address] [phone] Potassium 4.3 mmol/L N 3.5-5.0 Chloride 106 mmol/L N 101-111 Co2 Carbon Dioxide 28 mmol/L N 22-32 Anion Gap 5 mmol/L N 2-11 Glucose 116 mg/dL High 70-100 Blood Urea Nitrogen 18 mg/dL N 6-24 Creatinine 0.70 mg/dL N 0.51-0.95 BUN/Creatinine Ratio 25.7 High 8-20 Calcium 9.9 mg/dL N 8.6-10.3 Egfr Non- 84.5 N >60 Egfr 108.7 N >60 22 Lipid Profile 05/29/2016 [facility] Triglycerides 125 mg/dL N 23 (Trig/Chol/HDL) [place] [address] [phone] Cholesterol 192 mg/dL N 24 HDL Cholesterol 46.8 mg/dL N 25 LDL Cholesterol 120 mg/dL N 26 Comp Metabolic Panel 05/29/2016 [facility] Sodium 139 mmol/L N 133-145 [place] [address] [phone] Potassium 4.3 mmol/L N 3.5-5.0 Chloride 104 mmol/L N 101-111 Co2 Carbon Dioxide 28 mmol/L N 22-32 Anion Gap 7 mmol/L N 2-11 Glucose 121 mg/dL High 70-100 Blood Urea Nitrogen 18 mg/dL N 6-24 Creatinine 0.83 mg/dL N 0.51-0.95 BUN/Creatinine Ratio 21.7 High 8-20 Calcium 10.4 mg/dL High 8.6-10.3 Total Protein 7.1 g/dL N 6.4-8.9 Albumin 4.2 g/dL N 3.2-5.2 Globulin 2.9 g/dL N 2-4 Albumin/Globulin Ratio 1.4 N 1-3 Total Bilirubin 0.70 mg/dL N 0.2-1.0 Alkaline Phosphatase 31 U/L Low 34-104 Alt 30 U/L N 7-52 Ast 22 U/L N 13-39 Egfr Non- 69.7 N >60 Egfr 89.6 N >60 27 Laboratory test 05/29/2016 [facility] Hemoglobin A1c 6.1 % High Less than [address] (Glyco HGB) 6.0 [place] [address] [phone] Laboratory test 11/29/2015 [facility] TSH (Thyroid 0.94 N 0.34 -5.[address] Stim Horm) ?IU/mL [place], [place] [id number] [phone] Basic Metabolic 11/29/2015 [facility] Sodium 140 N 133-[address] mmol/[place] [address] [phone] Potassium 4.1 mmol/L N 3.5-5.0 Chloride 107 mmol/L N 101-111 Co2 Carbon Dioxide 27 mmol/L N 22-32 Anion Gap 6 mmol/L N 2-11 Glucose 114 mg/dL High 70-100 Blood Urea Nitrogen 13 mg/dL N 6-24 Creatinine 0.72 mg/dL N 0.51-0.95 BUN/Creatinine Ratio 18.1 N 8-20 Calcium 9.9 mg/dL N 8.6-10.3 Egfr Non- 82.1 N >60 Egfr 105.6 N >60 29 Laboratory 11/29/2015 [facility] Free T4 (Free 1.29 High 0.61- 1.12 test finding [address] Thyroxine) ng/[place] [address] [phone] Lipid Profile 05/14/2015 [facility] Triglycerides 135 N 30, (Trig/Chol/HD [address] mg/dL 31 L) [place] [address] [phone] Cholesterol 164 mg/dL N 32 HDL Cholesterol 34.7 mg/dL N 33 LDL Cholesterol 102 mg/dL N 34 Comp Metabolic Panel 05/14/2015 [facility] Sodium 138 mmol/L N 133-[address] [place] [address] [phone] Potassium 4.3 mmol/L N 3.5-5.0 Chloride 105 mmol/L N 101-111 Co2 Carbon Dioxide 28 mmol/L N 22-32 Anion Gap 5 mmol/L N 2-11 Glucose 109 mg/dL High 70-100 Blood Urea Nitrogen 13 mg/dL N 6-24 Creatinine 0.74 mg/dL N 0.51-0.95 BUN/Creatinine Ratio 17.6 N 8-20 Calcium 10.2 mg/dL N 8.6-10.3 Total Protein 6.7 g/dL N 6.4-8.9 Albumin 4.1 g/dL N 3.2-5.2 Globulin 2.6 g/dL N 2-4 Albumin/Globulin Ratio 1.6 N 1-3 Total Bilirubin 0.40 mg/dL N 0.2-1.0 Alkaline Phosphatase 33 U/L Low 34-104 Alt 16 U/L N 7-52 Ast 15 U/L N 13-39 Egfr Non- 79.8 N >60 Egfr 102.6 N >60 35 Laboratory test 05/14/2015 [facility] TSH (Thyroid 0.31 Low 0.34-5.60 [address] Stim Horm) ?IU/[place] [address] [phone] Hemoglobin A1c (Glyco HGB) 5.9 % N Less than 6.0 37 Laboratory test 08/16/2014 [facility] Rapid (SEE NOTE) [address] [place] [place] [address] B Antigen [phone] Laboratory test 05/31/2014 [facility] Human Negative N Negative [address] [place] [address] Virus Rna [phone] Cytology RUN DATE: 06/01/ <SEE NOTE> 40 Laboratory test 05/29/2014 [facility] Hemoglobin A1c 5.7 % N Less than [address] 6[address]0 [place] [address] [phone] Pthi 05/29/2014 [facility] PTH Intact 5.2 N 1.3-9.[address] pmol/L [place], [place] [id number] [phone] Calcium (PTH Intact) 10.1 mg/dL N 8.6-10.3 Comp Metabolic Panel 05/29/2014 [facility] Sodium 139 mmol/L N 133-[address] [place], [place] [id number] [phone] Potassium 4.0 mmol/L N 3.5-5.0 42 Chloride 105 mmol/L N 101-111 Co2 Carbon Dioxide 26 mmol/L N 22-32 Anion Gap 8 mmol/L N 2-11 Glucose 111 mg/dL High 70-100 Blood Urea Nitrogen 17 mg/dL N 6-24 Creatinine 0.86 mg/dL N 0.51-0.95 BUN/Creatinine Ratio 19.8 N 8-20 Calcium 10.2 mg/dL N 8.6-10.3 Total Protein 6.9 g/dL N 6.4-8.9 Albumin 4.0 g/dL N 3.2-5.2 Globulin 2.9 g/dL N 2-4 Albumin/Globulin Ratio 1.4 N 1-3 Total Bilirubin 0.70 mg/dL N 0.2-1.0 Alkaline Phosphatase 28 U/L Low 34-104 Alt 17 U/L N 7-52 Ast 15 U/L N 13-39 Egfr Non- 67.3 N >60 Egfr 86.6 N >60 43 Laboratory test 05/29/2014 [facility] TSH (Thyroid 0.72 N 0.34 -5.[address] Stimulating Horm) IU/[place] [address] [phone] Lipid Profile 05/29/2014 [facility] Triglycerides 126 mg/dL N 44 (Trig/Chol/HDL) [address] [place] [address] [phone] Cholesterol 177 mg/dL N 45 HDL Cholesterol 40.9 mg/dL N 46 LDL Cholesterol 111 mg/dL N 47 Lipid Profile (Trig/Chol/HDL) 07/19/2013 Triglycerides 98 mg/dL 40-200 Cholesterol 192 mg/dL Less than 200 HDL Cholesterol 57 mg/dL 40-60 48 Cholesterol/HDL Ratio 3.4 Average 1-4.44 LDL Cholesterol 115.4 High Less Than 100 49 Laboratory test finding 07/19/2013 Hemoglobin A1c 6.1 % High Less than 6.0 50 Comp Metabolic Panel 07/19/2013 Sodium 141 mmol/L 133-145 Potassium 4.4 mmol/L 3.5-5.0 Chloride 108 mmol/L 101-111 Co2 Carbon Dioxide 28.0 mmol/L 22-32 Anion Gap 5.0 mmol/L 2-11 Glucose 93 mg/dL 70-100 Blood Urea Nitrogen 15 mg/dL 6-24 Creatinine 0.80 mg/dL 0.50-1.40 BUN/Creatinine Ratio 18.8 8-20 Calcium 10.5 mg/dL High 8.1-9.9 Total Protein 6.8 g/dL 6.2-8.1 Albumin 4.0 g/dL 3.6-5.4 Globulin 2.8 g/dL 2-4 Albumin/Globulin Ratio 1.4 1-3 Total Bilirubin 0.8 mg/dL 0.4-1.5 Alkaline Phosphatase 35 U/L 30-110 Alt 42 U/L 14-54 Ast 26 U/L 12-42 Egfr Non- 73.4 >60 Egfr 94.4 >60 51 Laboratory test 04/26/2013 [facility] RUN DATE: [address] Pathology 04/28/ <[place] [address] NOTE> [phone] Laboratory test 04/25/2013 [facility] TSH (Thyroid 0.79 miu/mL 0.34- finding [address] Stimulating Horm) 5.60 [place] [address] [phone] Laboratory test 01/06/2013 [facility] Calcium Ionized 5.10 mg/ dL 4.65- finding [address] [place] [address] [phone] Basic Metabolic 01/06/2013 [facility] Sodium 139 mmol/L 133- [address] [place] [address] [phone] Potassium 4.2 mmol/L 3.5-5.0 Chloride 104 mmol/L 101-111 Co2 Carbon Dioxide 29.0 mmol/L 22-32 Anion Gap 6.0 mmol/L 2-11 Glucose 115 mg/dL High 70-100 Blood Urea Nitrogen 16 mg/dL 6-24 Creatinine 0.70 mg/dL 0.50-1.40 BUN/Creatinine Ratio 22.9 High 8-20 Calcium 10.0 mg/dL High 8.1-9.9 Egfr Non- 85.6 >60 Egfr 110.1 >60 53 Pthi 12/17/2012 [facility] PTH Intact 4.0 pmol/L 1.3-9.[address] [place] [address] [phone] Calcium (PTH Intact) 10.5 mg/dL High 8.1-9.9 Laboratory test 12/17/2012 [facility] TSH (Thyroid 1.42 0.34- 5.[address] Stimulating miu/[place] [address] Horm) [phone] Comp Metabolic 12/17/2012 [facility] Sodium 139 mmol/L 133- 145 Panel 101 [place] [address] [phone] Potassium 3.8 mmol/L 3.5-5.0 Chloride 102 mmol/L 101-111 Co2 Carbon Dioxide 29.0 mmol/L 22-32 Anion Gap 8.0 mmol/L 2-11 Glucose 104 mg/dL High 70-100 Blood Urea Nitrogen 13 mg/dL 6-24 Creatinine 0.80 mg/dL 0.50-1.40 BUN/Creatinine Ratio 16.3 8-20 Calcium 10.6 mg/dL High 8.1-9.9 Total Protein 6.8 g/dL 6.2-8.1 Albumin 3.9 g/dL 3.6-5.4 Globulin 2.9 g/dL 2-4 Albumin/Globulin Ratio 1.3 1-3 Total Bilirubin 0.8 mg/dL 0.4-1.5 Alkaline Phosphatase 32 U/L 30-110 Alt 25 U/L 14-54 Ast 20 U/L 12-42 Egfr Non- 73.4 >60 Egfr 94.4 >60 54 Lipid Profile 12/17/2012 [facility] Triglycerides 144 mg/dL 40-200 (Trig/Chol/HDL) [address] [place] [address] [phone] Cholesterol 174 mg/dL Less than 200 HDL Cholesterol 47 mg/dL 40-60 55 Cholesterol/HDL Ratio 3.7 Average 1-4.44 LDL Cholesterol 98.2 mg/dL Less Than 100 56 Pthi 08/20/2012 [facility] PTH Intact 7.8 pmol/L 1.3-9.[address] [place] [address] [phone] Calcium (PTH Intact) 10.5 mg/dL High 8.1-9.9 Comp Metabolic Panel 08/19/2012 [facility] Sodium 141 mmol/L 133-[address] [place] [address] [phone] Potassium 4.4 mmol/L 3.5-5.0 Chloride 104 mmol/L 101-111 Co2 Carbon Dioxide 31.0 mmol/L 22-32 Anion Gap 6.0 mmol/L 2-11 Glucose 91 mg/dL 70-100 Blood Urea Nitrogen 11 mg/dL 6-24 Creatinine 0.90 mg/dL 0.50-1.40 BUN/Creatinine Ratio 12.2 8-20 Calcium 10.3 mg/dL High 8.1-9.9 Total Protein 6.7 g/dL 6.2-8.1 Albumin 4.0 g/dL 3.6-5.4 Globulin 2.7 g/dL 2-4 Albumin/Globulin Ratio 1.5 1-3 Total Bilirubin 0.6 mg/dL 0.4-1.5 Alkaline Phosphatase 36 U/L 30-110 Alt 22 U/L 14-54 Ast 18 U/L 12-42 Egfr Non- 64.3 >60 Egfr 82.7 >60 57 Laboratory test 08/19/2012 [facility] Stool Culture (SEE NOTE) [address] [place] [address] [phone] Spep Protein 11/21/2011 [facility] Albumin 3.10 GM/DL 3.0-4. Electro, Serum [address] [place] [address] [phone] Alpha 1 0.16 GM/DL 0.09-0.33 Alpha 2 0.97 GM/DL 0.59-1.18 Beta 0.89 GM/DL 0.68-1.02 Gamma 1.08 GM/DL 0.76-1.60 Albumin % 50.0 % 46-63 Alpha 1 % 2.6 % 1.2-5.3 Alpha 2 % 15.6 % 9-17 Beta % 14.4 % 10-16 Gamma % 17.4 % 12-22 A/G Ratio 1.0 0.9-2 Total Protein 6.2 GM/DL 6.2-8.1 Spep Comments (SEE NOTE) 59 Laboratory test finding 11/21/2011 [facility] Ast (Sgot) 21 U/L 12-[address] [place] [address] [phone] Alt (SGPT) 21 U/L 14-54 Vitamin B12 391 pg/mL 180-914 TSH 0.81 MIU/ML 0.34-5.60 Lipid Panel 11/21/2011 [facility] Triglyceride 88 mg/dL 40- [address] [place] [address] [phone] Cholesterol 161 mg/dL Less Than 200 60 High Density Lipoprotein 41 mg/dL 40-60 61 Cholesterol/HDL Ratio 3.93 AVERAGE 1-4.44 Low Density Lipoprotein 102 mg/dL High Less Than 100 62 Laboratory 09/24/2011 [facility] Surgical 63 test finding [address] Pathology <SEE NOTE> [place] [address] [phone] Comp Metabolic 01/10/2011 [facility] Sodium 139 mmol/L 135- Panel [address] [place] [address] [phone] Potassium 3.6 mmol/L 3.5-5.0 Chloride 102 mmol/L 101-111 Co2 (Carbon Dioxide) 29.0 mmol/L 22-32 Anion Gap 8.0 mmol/L 2-11 64 Glucose 98 mg/dL 70-100 BUN 14 mg/dL 6-24 Creatinine 0.70 mg/dL 0.50-1.40 One Over Creatinine 1.40 BUN/Creatinine Ratio 20.0 8-20 Calcium 9.8 mg/dL 8.1-9.9 Total Protein 6.4 GM/DL 6.2-8.1 Albumin 3.9 GM/DL 3.6-5.4 Globulin 2.5 GM/DL 2-4 Albumin/Globulin Ratio 1.6 1-3 Bilirubin Total 0.6 mg/dL 0.4-1.5 65 Alkaline Phosphatase 32 U/L 30-110 Alt (SGPT) 19 U/L 14-54 Ast (Sgot) 24 U/L 12-42 eGFR Non- 86.2 > 60 eGFR 110.9 > 60 66 Lipid Profile 01/10/2011 [facility] Triglyceride 135 mg/dL 40 -200 (Trig/Chol/HDL) [address] [place] [address] [phone] Cholesterol 198 mg/dL Less Than 200 67 High Density Lipoprotein 53 mg/dL 40-60 68 Cholesterol/HDL Ratio 3.74 AVERAGE 1-4.44 Low Density Lipoprotein 118 mg/dL High Less Than 100 69 Laboratory test 01/10/2011 [facility] TSH 2.15 MIU/ML 0.34- 5.[address] [place], [place] [phone] Cytology 12/28/2009 [facility] Cytology [address] ---- <[place] [address] NOTE> [phone] 1 Because ethnic data is not always readily available, this report includes an eGFR for both -Americans and non- Americans. The National Kidney Disease Education Program (NKDEP) does not endorse the use of the MDRD equation for patients that are not between the ages of 18 and 70, are , have extremes of body size, muscle mass, or nutritional status, or are non- or non-. According to the National Kidney Foundation, irrespective of diagnosis, the stage of the disease is based on the level of kidney function: Stage Description GFR(mL/min/1.73 m(2)) 1 Kidney damage with normal or decreased GFR 90 2 Kidney damage with mild decrease in GFR 60-89 3 Moderate decrease in GFR 30-59 4 Severe decrease in GFR 15-29 5 Kidney failure <15 (or dialysis) 2 Troponin-I testing on Plasma Separator Tubes (PST) has a known false positive rate of 0.20-0.40%. All positive troponins reflex immediate secondary confirmatory testing. 3 [facility] Severe Sepsis and Septic Shock Management Bundle Measure requires all lactic acids initially measuring >2.0 mmol/L be repeated. 4 SEE RESULT BELOW Name: CORA KHANNA : [address]: Efrain Alamo MD Acct: [id number] Unit: [id number] AGE: 63 Location: [place] [address] Re10/30/18 Dis: 11/03/18 SEX: F Status: DIS IN SPEC: [id number] [place]: 10/31/[address]: Julianne Ball MD REQ: [id number] RECD: 10/31/18 STATUS: ALLI DINH DR: Ruthie Diaz MD _ SOURCE: BLOOD,VENO SPDESC: ORDERED: Blood Cult COMMENTS: Patient is On Antibiotics? NO Procedure Result Reported Site Aerobic Culture Bottle Final 11/05/18- 0200 ML No Growth Day 5 Anaerobic Culture Bottle Final 11/05/18- 0200 ML No Growth Day 5 * ML - Main Lab . END OF REPORT DEPARTMENT OF PATHOLOGY, [address] [place] [address] Joseph Calderon M.D. Director [facility] # [id number] 5 Desirable: <150 Borderline High: 150-199 High: 200-499 Very High: >500 6 Desirable: <200 Borderline High: 200-239 High: >239 7 Low: <40 Desirable: 40-60 High: >60 8 Desirable: <100 Near Optimal: 100-129 Borderline High: 130-159 High: 160-189 Very High: >189 9 Because ethnic data is not always readily available, this report includes an eGFR for both -Americans and non- Americans. The National Kidney Disease Education Program (NKDEP) does not endorse the use of the MDRD equation for patients that are not between the ages of 18 and 70, are , have extremes of body size, muscle mass, or nutritional status, or are non- or non-. According to the National Kidney Foundation, irrespective of diagnosis, the stage of the disease is based on the level of kidney function: Stage Description GFR(mL/min/1.73 m(2)) 1 Kidney damage with normal or decreased GFR 90 2 Kidney damage with mild decrease in GFR 60-89 3 Moderate decrease in GFR 30-59 4 Severe decrease in GFR 15-29 5 Kidney failure <15 (or dialysis) 10 Therapeutic target for the treatment of diabetes mellitus patients is <7% HBA1C, and in selective patients <6.0%. Please refer to [place] [employer] diabetic care guidelines for further information. 11 FASTING 10 HOUR 12 Because ethnic data is not always readily available, this report includes an eGFR for both -Americans and non- Americans. The National Kidney Disease Education Program (NKDEP) does not endorse the use of the MDRD equation for patients that are not between the ages of 18 and 70, are , have extremes of body size, muscle mass, or nutritional status, or are non- or non-. According to the National Kidney Foundation, irrespective of diagnosis, the stage of the disease is based on the level of kidney function: Stage Description GFR(mL/min/1.73 m(2)) 1 Kidney damage with normal or decreased GFR 90 2 Kidney damage with mild decrease in GFR 60-89 3 Moderate decrease in GFR 30-59 4 Severe decrease in GFR 15-29 5 Kidney failure <15 (or dialysis) 13 Desirable: <150 Borderline High: 150-199 High: 200-499 Very High: >500 14 Desirable: <200 Borderline High: 200-239 High: >239 15 Low: <40 Desirable: 40-60 High: >60 16 Desirable: <100 Near Optimal: 100-129 Borderline High: 130-159 High: 160-189 Very High: >189 17 Because ethnic data is not always readily available, this report includes an eGFR for both -Americans and non- Americans. The National Kidney Disease Education Program (NKDEP) does not endorse the use of the MDRD equation for patients that are not between the ages of 18 and 70, are , have extremes of body size, muscle mass, or nutritional status, or are non- or non-. According to the National Kidney Foundation, irrespective of diagnosis, the stage of the disease is based on the level of kidney function: Stage Description GFR(mL/min/1.73 m(2)) 1 Kidney damage with normal or decreased GFR 90 2 Kidney damage with mild decrease in GFR 60-89 3 Moderate decrease in GFR 30-59 4 Severe decrease in GFR 15-29 5 Kidney failure <15 (or dialysis) 18 Therapeutic target for the treatment of diabetes mellitus patients is <7% HBA1C, and in selective patients <6.0%. Please refer to [place] [employer] diabetic care guidelines for further information. 19 FASTING 10 HOUR DO THIS PRIOR TO 06/15 APPT 20 Therapeutic target for the treatment of diabetes Mellitus patients is <7% HBA1C, and in selective patients <6.0%.Please refer to [place] [employer] Diabetic care guidelines for further information. 21 DUE IN DECEMBER 08 Because ethnic data is not always readily available, this report includes an eGFR for both -Americans and non- Americans. The National Kidney Disease Education Program (NKDEP) does not endorse the use of the MDRD equation for patients that are not between the ages of 18 and 70, are , have extremes of body size, muscle mass, or nutritional status, or are non- or non-. According to the National Kidney Foundation, irrespective of diagnosis, the stage of the disease is based on the level of kidney function: Stage Description GFR(mL/min/1.73 m(2)) 1 Kidney damage with normal or decreased GFR 90 2 Kidney damage with mild decrease in GFR 60-89 3 Moderate decrease in GFR 30-59 4 Severe decrease in GFR 15-29 5 Kidney failure <15 (or dialysis) 23 Desirable <150 Borderline high 150-199 High 200-499 Very High >500 24 Desirable <200 Borderline high 200-239 High >239 25 Low <40 Desirable: 40-60 High: >60 26 Desirable: <100 mg/dL Near Optimal: 100-129 mg/dL Borderline High: 130-159 mg/dL High: 160-189 mg/dL Very High: >189 mg/dL 27 Because ethnic data is not always readily available, this report includes an eGFR for both -Americans and non- Americans. The National Kidney Disease Education Program (NKDEP) does not endorse the use of the MDRD equation for patients that are not between the ages of 18 and 70, are , have extremes of body size, muscle mass, or nutritional status, or are non- or non-. According to the National Kidney Foundation, irrespective of diagnosis, the stage of the disease is based on the level of kidney function: Stage Description GFR(mL/min/1.73 m(2)) 1 Kidney damage with normal or decreased GFR 90 2 Kidney damage with mild decrease in GFR 60-89 3 Moderate decrease in GFR 30-59 4 Severe decrease in GFR 15-29 5 Kidney failure <15 (or dialysis) 28 Therapeutic target for the treatment of diabetes Mellitus patients is <7% HBA1C, and in selective patients <6.0%.Please refer to [place] [employer] Diabetic care guidelines for further information. 29 Because ethnic data is not always readily available, this report includes an eGFR for both -Americans and non- Americans. The National Kidney Disease Education Program (NKDEP) does not endorse the use of the MDRD equation for patients that are not between the ages of 18 and 70, are , have extremes of body size, muscle mass, or nutritional status, or are non- or non-. According to the National Kidney Foundation, irrespective of diagnosis, the stage of the disease is based on the level of kidney function: Stage Description GFR(mL/min/1.73 m(2)) 1 Kidney damage with normal or decreased GFR 90 2 Kidney damage with mild decrease in GFR 60-89 3 Moderate decrease in GFR 30-59 4 Severe decrease in GFR 15-29 5 Kidney failure <15 (or dialysis) 30 FASTING 31 Desirable <150 Borderline high 150-199 High 200-499 Very High >500 32 Desirable <200 Borderline high 200-239 High >239 33 Low <40 Desirable: 40-60 High: >60 34 Desirable: <100 mg/dL Near Optimal: 100-129 mg/dL Borderline High: 130-159 mg/dL High: 160-189 mg/dL Very High: >189 mg/dL 35 Because ethnic data is not always readily available, this report includes an eGFR for both -Americans and non- Americans. The National Kidney Disease Education Program (NKDEP) does not endorse the use of the MDRD equation for patients that are not between the ages of 18 and 70, are , have extremes of body size, muscle mass, or nutritional status, or are non- or non-. According to the National Kidney Foundation, irrespective of diagnosis, the stage of the disease is based on the level of kidney function: Stage Description GFR(mL/min/1.73 m(2)) 1 Kidney damage with normal or decreased GFR 90 2 Kidney damage with mild decrease in GFR 60-89 3 Moderate decrease in GFR 30-59 4 Severe decrease in GFR 15-29 5 Kidney failure <15 (or dialysis) 36 FASTING 37 Therapeutic target for the treatment of diabetes Mellitus patients is <7% HBA1C, and in selective patients <6.0%.Please refer to [place] [employer] Diabetic care guidelines for further information. 38 RUN DATE: 08/16/14 [facility] LAB LIVE PAGE 1 RUN TIME: [address] [place] [address] Specimen Inquiry Name: CORA KHANNA Otilio : [address]: Billy Jacinto NP Acct: [id number] Unit: [id number] AGE: 58 Location: [facility] Re08/16/14 SEX: F Status: REG REF SPEC: [id number] [place]: 08/16/[address] [facility] [address]: Billy Jacinto NP REQ: [id number] RECD: 08/16/14 STATUS: COMP _ [facility]: Rapid Flu A B QUERIES: Provider Requisition # [id number] Procedure Result Verified Site Rapid Influenza A B Antigen Final 08/16/141952 ML Organism 1 Negative Influenza B Organism 2 POSITIVE INFLUENZA A Antigen testing by enzyme immunoassay. Cell culture testing can be performed to confirm negative test results and to assist in detecting other viruses that can produce similar clinical symptoms. Please notify Microbiology Lab if further testing is desired. END OF REPORT * ML=Testing performed at Main Lab DEPARTMENT OF PATHOLOGY, [address] [place] [address] Joseph Calderon M.D. Director [facility] # [id number] The high-risk HPV types detected by the assay include: 16, 18, 31, 33, 35, 39, 45, 51, 52, 56, 58, 59, 66, and 68. 40 RUN DATE: 06/01/14 [facility] LAB LIVE PAGE 1 RUN TIME: [address] [place] [address] Specimen Inquiry Name: CORA KHANNA : [address]: Ruthie Diaz MD Acct: [id number] Unit: [id number] AGE: 58 Location: [facility] Re05/31/14 SEX: F Status: REG REF SPEC: [id number] [place]: 05/31/14-[address] [facility] [address]: Ruthie Diaz MD REQ: [id number] RECD: 05/31/14785 STATUS: SOUT _ ORDERED: IMAGE ANALYSIS, HPV/Thin Prep FINAL DIAGNOSIS Negative for Intraepithelial lesion or Malignancy HPV Result: Negative Normal Range: Negative The high-risk HPV types detected by the assay include: 16, 18, 31, 33, 35, 39, 45, 51, 52, 56, 58, 59, 66, and 68. A. Ectocervical/Endocervical Specimen Adequacy: Satisfactory of evaluation Transformation zone component cannot be definitely identified due to presence of atrophy or other hormonal changes Predominance of white blood cells Patient Information: HPV: High risk HPV RNA testing regardless of pap results. Actual Specimen Date: 05/31/14 ?: N Post Menopausal?: Y Hysterectomy?: N Previous Abnormal Pap Smears?:N Signed (signature on file) Effie Penaloza NM (ASCP) 06/01/14 3590 This Pap test was evaluated with the assistance of the [employer] Test Imaging System. Due to cytologic findings at the worship leader microscope, comprehensive manual rescreening by a Lead Die Molder may be required. The Pap Smear is a screening test designed to aid in the detection of premalignant and malignant conditions of the uterine cervix. It is not a diagnostic procedure and should not be used as the sole means of detecting cervical cancer. Both false- positive and false- negative reports do occur. Depending on your risk status, a Pap smear shoudl be obtained and evaluated every 1-3 years. END OF REPORT * ML=Testing performed at Main Lab DEPARTMENT OF PATHOLOGY, [address] [place] [address] Joseph Calderon M.D. Director [facility] # [id number] 41 Therapeutic target for the treatment of diabetes Mellitus patients is <7% HBA1C, and in selective patients <6.0%.Please refer to [place] [employer] Diabetic care guidelines for further information. 42 Potassium reference range changed effective 05/21/14 43 Because ethnic data is not always readily available, this report includes an eGFR for both -Americans and non- Americans. The National Kidney Disease Education Program (NKDEP) does not endorse the use of the MDRD equation for patients that are not between the ages of 18 and 70, are , have extremes of body size, muscle mass, or nutritional status, or are non- or non-. According to the National Kidney Foundation, irrespective of diagnosis, the stage of the disease is based on the level of kidney function: Stage Description GFR(mL/min/1.73 m(2)) 1 Kidney damage with normal or decreased GFR 90 2 Kidney damage with mild decrease in GFR 60-89 3 Moderate decrease in GFR 30-59 4 Severe decrease in GFR 15-29 5 Kidney failure <15 (or dialysis) 44 Desirable <150 Borderline high 150-199 High 200-499 Very High >500 45 Desirable <200 Borderline high 200-239 High >239 46 Low <40 Desirable: 40-60 High: >60 47 Desirable <100 Near Optimal 100-129 Borderline high 130-159 High 160-189 Very High >189 48 HDL Interpretation: Undesirable: High Risk: Less than 40 mg/dL Desirable: Low Risk: Greater than 60 mg/dL 49 LDL Interpretation: Low Risk Optimal Level: LDL Less than 100 mg/dL Near or Above Optimal: LDL 100-129 mg/dL Borderline High Risk: LDL 130-159 mg/dL High Risk: LDL 160-189 mg/dL Very High Risk: LDL Greater than 189 mg/dL 50 Therapeutic target for the treatment of diabetes Mellitus patients is <7% HBA1C, and in selective patients <6.0%.Please refer to [place] [employer] Diabetic care guidelines for further information. 51 Because ethnic data is not always readily available, this report includes an eGFR for both -Americans and non- Americans. The National Kidney Disease Education Program (NKDEP) does not endorse the use of the MDRD equation for patients that are not between the ages of 18 and 70, are , have extremes of body size, muscle mass, or nutritional status, or are non- or non-. According to the National Kidney Foundation, irrespective of diagnosis, the stage of the disease is based on the level of kidney function: Stage Description GFR(mL/min/1.73 m(2)) 1 Kidney damage with normal or decreased GFR 90 2 Kidney damage with mild decrease in GFR 60-89 3 Moderate decrease in GFR 30-59 4 Severe decrease in GFR 15-29 5 Kidney failure <15 (or dialysis) 52 RUN DATE: 04/28/13 [facility] LAB LIVE PAGE 1 RUN TIME: [address] [place] [address] Specimen Inquiry Name: CORA KHANNA : [address]: Dominga Monterroso NP Acct: [id number] Unit: [id number] AGE: 57 Location: [facility] Re04/26/13 SEX: F Status: REG REF SPEC: [id number] [place]: 04/26/[address]: Dominga Monterroso NP REQ: [id number] RECD: 04/26/13 STATUS: SOUT _ ORDERED: LEVEL IV FINAL DIAGNOSIS Endometrium, biopsy: A. Scant, benign, fragmented endocervical mucosa and abundant mucus. B. Endometrium not present in sampled tissue. CLINICAL HISTORY No history given GROSS DESCRIPTION The specimen is received in formalin labeled Cora Clemencia, Undesignated, and consists of a 0.7 x 0.3 x 0.3 cm. white-retana mucoid aggregate of tissue. Submitted entirely, one cassette. Signed (signature on file) Rosaura Osborn MD 05/01 1641 END OF REPORT * ML=Testing performed at Main Lab DEPARTMENT OF PATHOLOGY, [address] [place] [address] Joseph Calderon M.D. Director [facility] Permit #[id number] 53 Because ethnic data is not always readily available, this report includes an eGFR for both -Americans and non- Americans. The National Kidney Disease Education Program (NKDEP) does not endorse the use of the MDRD equation for patients that are not between the ages of 18 and 70, are , have extremes of body size, muscle mass, or nutritional status, or are non- or non-. According to the National Kidney Foundation, irrespective of diagnosis, the stage of the disease is based on the level of kidney function: Stage Description GFR(mL/min/1.73 m(2)) 1 Kidney damage with normal or decreased GFR 90 2 Kidney damage with mild decrease in GFR 60-89 3 Moderate decrease in GFR 30-59 4 Severe decrease in GFR 15-29 5 Kidney failure <15 (or dialysis) 54 Because ethnic data is not always readily available, this report includes an eGFR for both -Americans and non- Americans. The National Kidney Disease Education Program (NKDEP) does not endorse the use of the MDRD equation for patients that are not between the ages of 18 and 70, are , have extremes of body size, muscle mass, or nutritional status, or are non- or non-. According to the National Kidney Foundation, irrespective of diagnosis, the stage of the disease is based on the level of kidney function: Stage Description GFR(mL/min/1.73 m(2)) 1 Kidney damage with normal or decreased GFR 90 2 Kidney damage with mild decrease in GFR 60-89 3 Moderate decrease in GFR 30-59 4 Severe decrease in GFR 15-29 5 Kidney failure <15 (or dialysis) 55 HDL Interpretation: Undesirable: High Risk: Less than 40 mg/dL Desirable: Low Risk: Greater than 60 mg/dL 56 LDL Interpretation: Low Risk Optimal Level: LDL Less than 100 mg/dL Near or Above Optimal: LDL 100-129 mg/dL Borderline High Risk: LDL 130-159 mg/dL High Risk: LDL 160-189 mg/dL Very High Risk: LDL Greater than 189 mg/dL 57 Because ethnic data is not always readily available, this report includes an eGFR for both -Americans and non- Americans. The National Kidney Disease Education Program (NKDEP) does not endorse the use of the MDRD equation for patients that are not between the ages of 18 and 70, are , have extremes of body size, muscle mass, or nutritional status, or are non- or non-. According to the National Kidney Foundation, irrespective of diagnosis, the stage of the disease is based on the level of kidney function: Stage Description GFR(mL/min/1.73 m(2)) 1 Kidney damage with normal or decreased GFR 90 2 Kidney damage with mild decrease in GFR 60-89 3 Moderate decrease in GFR 30-59 4 Severe decrease in GFR 15-29 5 Kidney failure <15 (or dialysis) 58 RUN DATE: 08/22/12 [facility] LAB LIVE PAGE 1 RUN TIME: [address] [place] [address] Specimen Inquiry Name: CORA KHANNA : [address]: Dominga Monterroso NP Acct: [id number] Unit: [id number] AGE: 56 Location: [facility] Re08/20/12 SEX: F Status: REG REF SPEC: [id number] [place]: 08/19/[address]: Dominga Monterroso NP REQ: [id number] RECD: 08/20/12 STATUS: COMP _ SOURCE: STOOL SPDESC: ORDERED: Stool Culture COMMENTS: Unable to perform Shiga Toxin testing. Specimen collection requirements were not met. Stool for Shiga Toxin testing must be received by the laboratory within 2 hours of collection or placed in Weiss-Odell transport medium. Verbal to Martha Medellin by [id number] at 1448 on 08/20/12. *please interpret stool culture result with caution* Stool specimen was not placed into appropriate transport medium within recommended time-frame. Testing may be less Sensitive. QUERIES: Medent Number [id number] Procedure Result Verified Site Stool Culture Final 08/22/12- 0939 ML Result No enteric pathogens isolated Testing for Salmonella, Shigella, Aeromonas, Plesiomonas, Yersinia and Campylobacter are included in a Stool Culture. Vibrio spp not routinely tested for in a stool culture. If testing is desired, please request specifically when placing test order. Sensitivities not routinely performed on stool isolates, as antibiotics may prolong the carriage rate of bacteria. Please contact the microbiology lab if sensitivities are required. Stool Specimen Description Final 08/20/12- 1038 ML Stool Color Brown Stool Form Semi-formed Stool Consistency Soft CONTINUED ON NEXT PAGE * ML=Testing performed at Main Lab DEPARTMENT OF PATHOLOGY, [facility] [employer] [place], [place] [address] Joseph Calderon M.D. Director [facility] Permit #[id number] RUN DATE: 08/22/12 [facility] LAB LIVE PAGE 2 RUN TIME: [address] [place] [address] Specimen Inquiry Patient: CORA KHANNA [id number] (Continued) Specimen: [id number] Collected: 08/19/12 Received: 08/20/12 (Continued) Procedure Result Verified Site Shiga Toxin 1 2 Final 08/20/12- 1038 ML Test not performed END OF REPORT * ML=Testing performed at Main Lab DEPARTMENT OF PATHOLOGY, [address] [place] [address] Joseph Calderon M.D. Director [facility] Permit #[id number] NORMAL ELECTROPHORETIC PATTERN. 60 CHOLESTEROL INTERPRETATION: Desirable: Less than 200 MG/DL Borderline-High Risk: 200-239 MG/DL High-Risk: 240 MG/DL and over 61 HDL INTERPRETATION: Undesirable: High Risk: Less than 40 MG/DL Desirable: Low Risk: Greater than 60 MG/DL 62 LDL INTERPRETATION: Low Risk Optimal Level: LDL Less than 100 MG/DL Near or Above Optimal: LDL 100-129 MG/DL Borderline High Risk: LDL 130-159 MG/DL High Risk: LDL 160-189 MG/DL Very High Risk: LDL Greater than 189 MG/DL 63 ---- RUN DATE: 09/26/11 [facility] NMI LIVE PAGE 1 RUN TIME: 1536 Specimen Inquiry RUN USER: INTERFACE -- Name: CORA KHANNA Status: REG REF Re09/24/11 Age/Sex: 56/F Unit#: [id number] Location: [facility] : 51 -- Specimen: [id number] SOUT Spec Date:09/24/11 [facility] [place] Dr: Dominga Monterroso [facility] Spec Type: SURGICAL P Received:09/25/11 Copies to: CYTOLOGY SPECIMEN ENDOMETRIAL BIOPSY HISTORY CLINICAL INFORMATION: No history given GROSS DESCRIPTION The specimen is received in formalin labelled Cora Khanna and consists of multiple fragments of dark brown tissue measuring in aggregate 0.9 x 0.9 x 0.3 cm. The specimen is filtered and submitted entirely in one cassette. DIAGNOSIS Uterus, endometrial biopsy: Disaggregated fragments of endometrium with no nuclear atypia, mucus, and few fragments of benign endocervical glands. Signed Electronically by: SHMUEL BARROW 09/26/11 1537 -- -- DEPARTMENT OF PATHOLOGY, [address] [place] [address] [facility] Permit #[id number] Joseph Calderon M.D. Director Shmuel Barorw M.D. Stitch Bonding Machine Drawer In Dir teague -- 64 Anion gap measurement may be of limited value in the presence of any alkalosis, especially in a combined acid base disorder. . 65 A metabolite of Naproxen, O-desmethylnaproxen, has been shown to interfere with the Jenkaushal-Manuel method for measuring total bilirubin. Samples from patients who have taken Naproxen have shown spurious elevation in total bilirubin levels. 66 Because ethnic data is not always readily available, this report includes an eGFR for both -Americans and non- Americans. The National Kidney Disease Education Program (NKDEP) does not endorse the use of the MDRD equation for patients that are not between the ages of 18 and 70, are , have extremes of body size, muscle mass, or nutritional status, or are non- or non-. According to the National Kidney Foundation, irrespective of diagnosis, the stage of the disease is based on the level of kidney function: Stage Description GFR(mL/min/1.73 m(2)) 1 Kidney damage with normal or decreased GFR 90 2 Kidney damage with mild decrease in GFR 60-89 3 Moderate decrease in GFR 30-59 4 Severe decrease in GFR 15-29 5 Kidney failure <15 (or dialysis) 67 CHOLESTEROL INTERPRETATION: Desirable: Less than 200 MG/DL Borderline-High Risk: 200-239 MG/DL High-Risk: 240 MG/DL and over 68 HDL INTERPRETATION: Undesirable: High Risk: Less than 40 MG/DL Desirable: Low Risk: Greater than 60 MG/DL 69 LDL INTERPRETATION: Low Risk Optimal Level: LDL Less than 100 MG/DL Near or Above Optimal: LDL 100-129 MG/DL Borderline High Risk: LDL 130-159 MG/DL High Risk: LDL 160-189 MG/DL Very High Risk: LDL Greater than 189 MG/DL 70 ---- RUN DATE: 01/01/10 [facility] NMI LIVE PAGE 1 RUN TIME: 0757 Specimen Inquiry RUN USER: INTERFACE -- Name: CORA KHANNAt#: [id number] Status: REG REF Re12/28/09 Age/Sex: 54/F Unit#: [id number] Location: [facility]. : 53 -- Specimen: [id number] SOUT Spec Date: 12/28/[address]: Ruthie Diaz MD Spec Type: CYTOLOGY Received: 12/31/09-1150 Copies to: SOURCE ECTOCERVICAL/ENDOCERVICAL Thin Prep with Reflex HPV Test PATIENT INFORMATION ACTUAL COLLECTION DATE: 12/28/09 ? No POST MENOPAUSAL? Yes HYSTERECTOMY? No PREVIOUS ABNORMAL PAP SMEARS No LAST MENSTRUAL PERIOD: 09/21/09 ADEQUACY OF SPECIMEN Satisfactory for evaluation * Transformation zone component identified * DIAGNOSIS NEGATIVE FOR INTRAEPITHELIAL LESION OR MALIGNANCY * This Pap test was evaluated with the assistance of the ThinPrep Pap Test Imaging System. The Pap Smear is a screening test designed to aid in the detection of premalign ant and malignant conditions of the uterine cervix. It is not a diagnostic procedure a nd should not be used as the sole means of detecting cervical cancer. Both false- positiv e and false-negative reports do occur. Depending on your risk status, a Pap smear wilbur uld be obtained and evaluated every one to three years. Initial evaluation performed by Bruce VIDES(ASCP) 12/31/09 Final Interpretation electronically signed by: Bruce VIDES(ASCP) 01/01/10 0757 -- -- DEPARTMENT OF PATHOLOGY, [address] [place] [address] [facility] Permit #[id number] Joseph Calderon M.D. Director Shmuel Barrow M.D. Stitch Bonding Machine Drawer In Dir zahida -- Procedures Date Code Description Status 10/30/2018 07376 Laparoscopy Unlisted Procedure, Stomach Completed 09/13/201844420 Inject/Drain Joint/Bursa Major W/O US Completed 06/09/201828574 Inject/Drain Joint/Bursa Major W/O US Completed 04/29/2018 71496 Destruction Of Benign Lesions Any Method 1-14 lesions Completed 04/29/2018 13992 Destruction ALL Benign Or Premalignant Lesion (Other Completed Than [place] 11/05/2017 [id number] Mammogram Completed 03/09/2017 96330 Destruction Of Benign Lesions Any Method 1-14 lesions Completed 03/09/2017 65705 Destruction ALL Benign Or Premalignant Lesion (Other Completed Than [place] 03/09/2017 75669 Removal Skin Tags Up To 15 Completed 10/16/2016 10876395 Mammogram Completed 08/23/2016 11258 Holter Monitor Review (24 hr)dr arina & interp only Completed 08/19/2016 41627 ECG Monitor/Recording W/Visual Superimposition Completed Scanning 08/19/2016 45395 EKG Tracing & Interpretation Completed 07/30/2015 [id number] Mammogram Completed 07/09/2015 20175534 Colonoscopy Completed 06/18/2015 93688 Inject/Drain Joint/Bursa Major W/O US Completed 07/28/2014 71969111 Mammogram Completed 07/19/2013 36872 EKG Tracing & Interpretation Completed 04/26/2013 81953 Endometrial Sampling W Or W/O Endocervical BX W Or W/O Completed Cerv Dilat 07/30/2012 93157935 Mammogram Completed 03/15/2012 11422 EKG Tracing & Interpretation Completed 09/24/2011 61164 Endometrial Sampling W Or W/O Endocervical BX W Or W/O Completed Cerv Dilat 07/17/2011 08969 EKG Tracing & Interpretation Completed 03/20/2011 85862793 Mammogram Completed 08/09/2010 24689631 Mammogram Completed 01/31/2010 87076054 Mammogram Completed 10/01/2009 39917 Endometrial Sampling W Or W/O Endocervical BX W Or W/O Completed Cerv Dilat 12/21/2007 02756 EKG Tracing & Interpretation Completed 12/21/2007 03941 EKG Tracing & Interpretation Completed 11/04/2004 00433891 Colonoscopy Completed 08/17/2001 684367971 Bone Mineral Density Test Completed Encounters Type Date Location Provider Dx Diagnosis Office Visit 11/10/2018 [facility] Internal Medicine Dominga Monterroso K27.1 Acute peptic 3:40p N.P. ulcer, site unspecified, with perforation Office Visit 11/02/2018 [facility] Gastroenterology Porfirio Francisco5.5 Chronic or 7:00a MD Morgan unspecified gastric ulcer with perforation Office Visit 10/31/2018 [facility] Gastroenterology Porfirio Francisco5.5 Chronic or 7:00a MD Morgan unspecified gastric ulcer with perforation Office Visit 10/30/2018 [facility] Francisco7.1 Acute peptic 7:00a Allen Alamo M.D. ulcer, site unspecified, with perforation Office Visit 10/28/2018 [facility] Internal Medicine Ruthie J01.90 Acute sinusitis, 9:00a Jacobo Diaz unspecified Z12.31 Encntr screen mammogram for malignant neoplasm of breast I10 Essential (primary) hypertension Office Visit 07/02/2018 10:15a Orthopedic Verenice M17.0 Bilateral primary Services Of Jacobo Conti osteoarthritis of C.M.A. knee M25.461 Effusion, right knee M25.462 Effusion, left knee M25.561 Pain in right knee M25.562 Pain in left knee Office Visit 06/18/2018 9:20a [facility] Internal Ruthie Z00.00 Encntr for Medicine Jacobo Diaz general adult medical exam w/o abnormal findings M25.559 Pain in unspecified hip Z68.41 Body mass index (BMI) 40.0-44.9, adult Office Visit 06/09/2018 9:00a [facility] Verenice Gallito, M25.562 Pain in left Of C.M.A. M.D. knee M25.561 Pain in right knee M25.462 Effusion, left knee M25.461 Effusion, right knee M17.0 Bilateral primary osteoarthritis of knee E66.01 Morbid (severe) obesity due to excess calories M25.552 Pain in left hip M25.551 Pain in right hip Office Visit 04/29/2018 9:30a [facility] Dermatology Aiden Mariano, L82.1 Other seborrheic MD keratosis I83.91 Asymptomatic varicose veins of right lower extremity L71.8 Other rosacea L30.4 Erythema intertrigo L90.8 Other atrophic disorders of skin L56.8 Oth acute skin changes due to ultraviolet radiation L82.0 Inflamed seborrheic keratosis L53.8 Other specified erythematous conditions Z78.9 Other specified health status R20.8 Other disturbances of skin sensation L57.0 Actinic keratosis Office Visit 12/17/2017 8:40a [facility] Internal Ruthie I10 Essential ( primary) Medicine Jacobo Diaz hypertension E83.52 Hypercalcemia Z68.42 Body mass index (BMI) 45.0-49.9, adult Office Visit 10/08/2017 11:40a [facility] Internal Medicine Ruthie Diaz M.D. R05 Cough Z12.31 Encntr screen mammogram for malignant neoplasm of breast Office Visit 09/29/2017 Orthopedic Neftaly Denisse, M72.2 Plantar fascial 3:15p Services Of fibromatosis C.M.A. Office Visit 06/15/2017 [facility] Internal Ruthie Z00.00 Encntr for general 3:00p Medicine Jacobo Diaz adult medical exam w/o abnormal findings E83.52 Hypercalcemia Office Visit 03/09/2017 9:10a [facility] Dermatology Aiden Mariano, L82.1 Other seborrheic MD keratosis L56.8 Oth acute skin changes due to ultraviolet radiation I83.91 Asymptomatic varicose veins of right lower extremity I83.12 Varicose veins of left lower extremity with inflammation I83.11 Varicose veins of right lower extremity with inflammation D18.01 Hemangioma of skin and subcutaneous tissue L82.0 Inflamed seborrheic keratosis L53.8 Other specified erythematous conditions Z78.9 Other specified health status L91.8 Other hypertrophic disorders of the skin R23.8 Other skin changes R20.8 Other disturbances of skin sensation H53.40 Unspecified visual field defects 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 Office Visit 06/06/2016 2:40p [facility] Internal Ruthie Z00.00 Encntr for general Medicine Jacobo Diaz adult medical exam w/o abnormal findings R73.01 Impaired fasting glucose I10 Essential (primary) hypertension E03.9 Hypothyroidism, unspecified Z12.31 Encntr screen mammogram for malignant neoplasm of breast Office Visit 11/29/2015 7:40a [facility] Internal Ruthie R09.89 Oth symptoms and Medicine Jacobo Diaz signs involving the circ and resp systems I10 Essential (primary) hypertension Z82.49 Family hx of ischem heart dis and oth dis of the circ sys Z87.891 Personal history of nicotine dependence Office Visit 06/18/2015 8:00a [facility] Verenice Conti, M25.552 Pain in left Of C.M.A. M.D. hip M16.12 Unilateral primary osteoarthritis, left hip M70.62 Trochanteric bursitis, left hip M25.562 Pain in left knee M54.5 Low back pain Office Visit 05/31/2015 3:40p [facility] Internal Ruthie Z00.00 Encntr for Milli Diaz M.D. general adult medical exam w/o abnormal findings Z12.11 Encounter for screening for malignant neoplasm of colon M25.552 Pain in left hip Z12.31 Encntr screen mammogram for malignant neoplasm of breast I10 Essential (primary) hypertension E03.9 Hypothyroidism, unspecified Office Visit 12/01/2014 4:00p [facility] Internal Ruthie 401.1 Hypertension Milli Diaz M.D. Benign 244.9 Hypothyroidism Other Unspec 790.21 Impaired Fasting Glucose Office Visit 08/16/2014 4:00p [facility] Internal Billy Jacinto, NAPHTHALENE OPERATOR HELPER 488.82 Influenza Due To Medicine Identified Influenza A Virus Resp Manfestat Office Visit 05/30/2014 11:20a [facility] Internal Ruthie V70.0 Examination Milli Diaz M.D. General Medical Routine AT Health Care Facility V76.2 Screening Malignant Neoplasm Cervix V76.12 Screening Mammogram Malig Jae Other 401.1 Hypertension Benign 272.2 Hyperlipidemia Mixed 790.21 Impaired Fasting Glucose 709.8 Skin Disorders Other Spec V06.1 Ahwhsfjseq-Pzevvnp-Wygjumkp Combined (DTaP) v04.89 Need For Prophylactic Vaccination & Inoculation Other Virus Office Visit 03/21/2014 2:20p [facility] Internal Dominga Monterroso, 719.45 Pain Joint Medicine N.P. Pelvic Region & Thigh 724.3 Sciatica Office Visit 10/20/2013 4:00p [facility] Internal Ruthie 401.1 Hypertension Milli Diaz M.D. Benign 790.21 Impaired Fasting Glucose Office Visit 07/26/2013 3:40p [facility] Internal Nurse Visit A 401.1 Hypertension Medicine Benign Office Visit 07/19/2013 10:00a [facility] Internal Ruthie V72.84 Examination Milli Diaz M.D. Preoperative Unspec 401.1 Hypertension Benign 371.50 Corneal Dystrophy Unspec V76.10 Screening For Malignant Neoplasm Breast 783.1 Weight Gain Abnormal Office Visit 04/14/2013 [facility] Internal Dominga Monterroso, 627.1 Postmenopausal 8:40a Medicine N.P. Bleeding Office Visit 01/10/2013 [facility] Internal Ruthie 401.1 Hypertension Benign 4:00p Milli Diaz M.D. Office Visit 08/19/2012 [facility] Internal Dominga Loc, 787.91 Diarrhea 10:00a Medicine N.P. Office Visit 07/19/2012 [facility] Internal Ruthie V70.0 Examination General 10:20a Milli Diaz M.D. Medical Routine AT Health Care Facility V76.10 Screening For Malignant Neoplasm Breast V72.31 Routine Software Engineer Web Applications Examination 401.1 Hypertension Benign 244.9 Hypothyroidism Other Unspec Office Visit 03/15/2012 4:00p [facility] Internal Ruthie 729.5 Pain In Limb Milli Diaz M.D. Office Visit 09/15/2011 8:40a [facility] Internal Ruthie 627.1 Postmenopausal Milli Diaz M.D. Bleeding 401.1 Hypertension Benign 272.4 Hyperlipidemia Other Unspec Office Visit 07/17/2011 DO Not Use Ruthie V70.0 Examination 2:00p Harpal Diaz M.D. General Medical Routine AT Health Care Facility V72.31 Routine Software Engineer Web Applications Examination 401.1 Hypertension Benign 272.4 Hyperlipidemia Other Unspec 782.0 Skin Sensation Disturbance Office Visit 10/29/2010 DO Not Use Ruthie 401.1 Hypertension 3:45p Harpal Diaz M.D. Benign Office Visit 08/01/2010 DO Not Use Ruthie 401.1 Hypertension 3:15p Harpal Diaz M.D. Benign Office Visit 04/30/2010 DO Not Use Ruthie 401.1 Hypertension 4:00p Harpal Diaz M.D. Benign Office Visit 01/24/2010 DO Not Use Nurse Visit A 401.1 Hypertension 11:00a Harpal Benign Office Visit 01/18/2010 DO Not Use Ruthie V72.84 Examination 10:30a Harpal Diaz M.D. Preoperative Unspec 401.1 Hypertension Benign Office Visit 12/28/2009 DO Not Use Ruthie V72.31 Routine Software Engineer Web Applications 3:15p Harpal Diaz M.D. Examination V70.0 Examination General Medical Routine AT Health Care Facility 401.1 Hypertension Benign Office Visit 09/24/2009 DO Not Use Dominga 627.1 Postmenopausal 3:45p Carrier Operator-Perkins Varn, N.P. Bleeding Office Visit 07/24/2009 DO Not Use [place], 244.9 Hypothyroidism 3:30p Harpal Woody M.D. Other Unspec 401.1 Hypertension Benign Office Visit 12/21/2008 DO Not Use [place], V72.31 Routine Software Engineer Web Applications 3:15p Harpal Woody M.D. Examination 401.1 Hypertension Benign Office Visit 06/21/2008 DO Not Use [place], 272.4 Hyperlipidemia 3:45p Harpal Woody M.D. Other Unspec 244.9 Hypothyroidism Other Unspec 401.1 Hypertension Benign Office Visit 12/21/2007 DO Not Use [place], V72.31 Routine Software Engineer Web Applications 3:15p Harpal Woody M.D. Examination 401.1 Hypertension Benign Office Visit 10/13/2006 3:30p DO Not Use RadomsAnnalise root, 785.1 Palpitations Harpal Centeno 401.1 Hypertension Benign 272.0 Hypercholesterolemia Pure 244.9 Hypothyroidism Other Unspec V72.31 Routine Software Engineer Web Applications Examination Office Visit 03/19/2006 DO Not Use [place], 401.1 Hypertension 3:00p Harpal Woody M.D. Benign Plan of Treatment Future Appointment(s):12/24/2018 10:00 am - Porfirio Mora MD at [facility] Spmvsjfclqjdypkr13/24/2019 11:15 am - Verenice Conti M.D. at [facility]06/20/2019 1:20 pm - Ruthie Diaz M.D. at [facility] Internal Eyrsipaj75 - Efrain Alamo M.D.K27.1 Acute peptic ulcer, site unspecified, with perforationFollow up:As needed
--- OUTSIDE RECORDS SUMMARY | 2018-11-12 19:49 | XMS REPORT | Continuity of Care Document ---
:1955 External Reference #:[id number] Author Name Ilda Shearer Care Team Providers Name Role Phone Ruthie Diaz MD Primary Care Physician Unavailable Payers Date Identification Numbers Payment Provider Subscriber Policy Number: [id number] Medicare Cora Khanna PayID: [id number] [address] [place] [address] Effective: 2011 Policy Number: [id number] [facility] Cora Khanna PayID: [id number] [address] [address] [place] [address] Advance Directives Description No Information Available Problems [...] 55 Years) Father due to Heart Disease [place] at 45 : (age 50 Years) Mother due to Aneurysm cerebral First Brother Heart Disease Second Brother Heart Disease Social History Type Date Description Comments Sex Unknown Marital Status Lives With 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 01/10/2013 Naproxen stomach problems 07/23/2015 Medications Active Medications SIG Qnty Indications Ordering Provider Date [facility] every day M.D. Losartan Potassium 1 by mouth 90tabs I10 [facility], 02/26/2018 50mg every day M.D. Tablets Spironolactone take 1/2 tablet 45tabs I10 [facility], 12/23/2012 25mg Tablets by mouth once M.D. daily Amlodipine Besylate take 1 tablet 90tabs I10 [facility], 07/19/2012 2.5mg by mouth once M.D. Tablets daily Wrist Brace/Suede 2units 782.0 [facility], 07/17/2011 Finish/Right And Left M.D. Misc Atorvastatin Calcium take 1 tablet 90tabs E78.2 [facility], 2010 40mg by mouth once M.D. Tablets daily Levothyroxine Sodium take 1 tablet 90tabs [facility], 12/26/2009 175mcg by mouth once M.D. Tablets daily Lotemax Noble, 0.5% Suspension MD John Timolol Maleate Noble, Ophthalmic Gel Forming MD John 0.5% GFS History Medications Doxycycline Hyclate 1 tab by mouth 14tabs J01.90 [facility] 10/29/2018 - twice a day for 7 KenneyJacobo Unknown 100mg Tablets days Azithromycin 2 tabs by mouth on 6tabs J01.90 [facility] 10/28/2018 - 250mg day 1; 1 tab by Foreign DiazDSkyler 10/29/2018 Tablets mouth every day on days 2-5 Cheratussin ac take 5-10 118ml 01.90 [facility] 10/28/2018 - milliliters every KenneyArcenio.DSkyler Unknown 100-10mg/5ML Syrup 4-6 hours as needed for cough. Irbesartan 1 by mouth every 90tabs I10 [facility] 02/15/2018 - 150mg day Jacobo Diaz 02/26/2018 Tablets Doxycycline Hyclate 1 tab by mouth 20tabs R05 Ruthie 10/08/2017 - twice a day for 10 Kenney M.DSkyler 10/18/2017 100mg Tablets days Cheratussin ac take 5-10 118ml R05 Ruthie 10/08/2017 - milliliters every Kenney, M.D. 10/18/2017 100-10mg/5ML Syrup 4-6 hours as needed for cough. Valsartan take 1 tablet by 90tabs I10 Ruthie 06/22/2015 - 160mg mouth once daily Joe M.DSkyler 02/15/2018 Tablets Naproxen 1 tablet with food [...] Ruthie 12/19/2012 - 160mg mouth once daily Arcenio Diaz.DSkyler 06/22/2015 Tablets Valsartan/Hydrochlo take 1 tablet by 30tabs Ruthie 07/19/2012 - rothiazide mouth once daily Arcenio Diaz.Tyrese 12/19/2012 160-25mg Tablets Cipro 1 po bid for 7 14tabs Ruthie 09/25/2011 - 500mg Tablets days Jacobo Diaz 10/02/2011 Diovan HCT take 1 tablet by [...] CPT Code Status Date Vaccine Lot # [id number] Given 04/01/2018 Influenza Virus Vaccine, Quadrivalent, Split, Preservative Free 10725 Given 04/20/2017 Influenza Virus Vaccine, Quadrivalent, Split, Preservative Free Q2035 Given 03/31/2016 Afluria Vaccine Q2035 Given 04/23/2015 Afluria Vaccine 13865 Given 05/30/2014 Zoster (Zostavax) [id number] Given 05/30/2014 Tdap - Tetanus/Diptheria/Acellular Pertussis [id number] Q2037 Given 04/17/2014 Fluvirin Im 3Yrs And Older Q2035 Given 05/06/2012 Afluria Vaccine Vital Signs Date Vital Result Comment 11/10/2018 3:37pm Height 64 inches 5'4" Weight [...] H/L Range Note CBC Auto Diff 10/30/2018 [facility] White Blood 17.3 10^3/uL High 3.5-10.[address] [place] [address] [phone] Red Blood Count 4.14 10^6/uL N 3.70-4.87 [...] Cells % 0 Comp Metabolic Panel 10/30/2018 [facility] Sodium 134 mmol/L Low 135-145 [address] [place] [address] [phone] Potassium 4.0 mmol/L N 3.5-5.0 Chloride 99 [...] 85.9 >60 1 Laboratory test finding 10/30/2018 [facility] Amylase 26 U/L Low 29-103 [address] [place] [address] [phone] Lipase 15 U/L N 11.0-82.0 C Reactive Protein 288.42 mg/L High <8.01 Troponin-I (TnI) 0.01 ng/mL <0.04 2 Lactic Acid 1.2 mmol/L N 0.5-2.0 3 Blood Culture SEE RESULT BELOW 4 Lipid Profile 06/16/2018 [facility] Triglycerides 105 mg/dL 5 (Trig/Chol/HDL) [address] [place] [address] [phone] Cholesterol 209 mg/dL 6 HDL Cholesterol 51.2 mg/dL 7 LDL Cholesterol 137 mg/dL 8 Laboratory test 06/16/2018 [facility] Hemoglobin A1c 6.0 % High 4.0-5.[address] (Glyco HGB) [place] [address] [phone] TSH (Thyroid Stim Horm) 1.19 mcIU/mL N 0.34-5.60 10 Comp Metabolic Panel 06/16/2018 [facility] Sodium 140 mmol/L N 135-145 [address] [place] [address] [phone] Potassium 4.4 mmol/L N 3.5-5.0 Chloride 106 [...] Egfr Non- 82.9 >60 Egfr 100.3 >60 11 Basic Metabolic Panel 12/17/2017 [facility] Sodium 139 mmol/L N 139-145 [address] [place] [address] [phone] Potassium 4.5 mmol/L N 3.5-5.0 Chloride 105 mmol/L N 101-111 Co2 Carbon Dioxide 27 mmol/L N 22-32 Anion Gap 7 mmol/L N 2-11 Glucose 103 mg/dL High 70-100 Blood Urea Nitrogen 15 mg/dL N 6-24 Creatinine 0.71 mg/dL N 0.51-0.95 BUN/Creatinine Ratio 21.1 High 8-20 Calcium 10.0 mg/dL N 8.6-10.3 Egfr Non- 82.9 >60 Egfr 106.6 >60 12 Pthi 12/17/2017 [facility] Calcium (PTH Intact) 10.3 mg/dL N 8.6-10.[address] [place] [address] [phone] PTH Intact 5.6 pmol/L N 1.3-9.3 Lipid Profile 06/09/2017 [facility] Triglycerides 155 mg/dL 13 (Trig/Chol/HDL) [address] [place] [address] [phone] Cholesterol 193 mg/dL 14 HDL Cholesterol 40.4 mg/dL 15 LDL Cholesterol 122 mg/dL 16 Comp Metabolic Panel 06/09/2017 [facility] Sodium 137 mmol/L N 133-145 [address] [place] [address] [phone] Potassium 4.0 mmol/L N 3.5-5.0 Chloride 104 [...] Egfr 110.5 >60 17 Laboratory test 06/09/2017 [facility] Hemoglobin A1c 5.8 % High 4.0-5.6 18 finding 101 (Glyco HGB) [place] [address] [phone] TSH (Thyroid Stim Horm) 0.62 mcIU/mL N 0.34-5.60 19 Laboratory test 11/27/2016 [facility] Hemoglobin A1c 5.9 % N Less than 20 finding 101 (Glyco HGB) 6.0 [place] [address] [phone] TSH (Thyroid Stim Horm) 1.07 mcIU/mL N 0.34-5.60 21 Basic Metabolic Panel 11/27/2016 [facility] Sodium 139 mmol/L N 133-145 [address] [place] [address] [phone] Potassium 4.3 mmol/L N 3.5-5.0 Chloride 106 mmol/L N 101-111 Co2 Carbon Dioxide 28 mmol/L N 22-32 Anion Gap 5 mmol/L N 2-11 Glucose 116 mg/dL High 70-100 Blood Urea Nitrogen 18 mg/dL N 6-24 Creatinine 0.70 mg/dL N 0.51-0.95 BUN/Creatinine Ratio 25.7 High 8-20 Calcium 9.9 mg/dL N 8.6-10.3 Egfr Non- 84.5 N >60 Egfr 108.7 N >60 22 Lipid Profile 05/29/2016 [facility] Triglycerides 125 mg/dL N 23 (Trig/Chol/HDL) [address] [place] [address] [phone] Cholesterol 192 mg/dL N 24 HDL Cholesterol 46.8 mg/dL N 25 LDL Cholesterol 120 mg/dL N 26 Comp Metabolic Panel 05/29/2016 [facility] Sodium 139 mmol/L N 133-145 [address] [place] [address] [phone] Potassium 4.3 mmol/L N 3.5-5.0 Chloride 104 [...] 89.6 N >60 27 Laboratory test 05/29/2016 [facility] Hemoglobin A1c 6.1 % High Less than [address] (Glyco HGB) 6.0 [place] [address] [phone] Laboratory test 11/29/2015 [facility] TSH (Thyroid 0.94 N 0.34 -5.[address] Stim Horm) ?IU/[place] [address] [phone] Basic Metabolic 11/29/2015 [facility] Sodium 140 N 133-[address] mmol/[place] [address] [phone] Potassium 4.1 mmol/L N 3.5-5.0 Chloride 107 mmol/L N 101-111 Co2 Carbon Dioxide 27 mmol/L N 22-32 Anion Gap 6 mmol/L N 2-11 Glucose 114 mg/dL High 70-100 Blood Urea Nitrogen 13 mg/dL N 6-24 Creatinine 0.72 mg/dL N 0.51-0.95 BUN/Creatinine Ratio 18.1 N 8-20 Calcium 9.9 mg/dL N 8.6-10.3 Egfr Non- 82.1 N >60 Egfr 105.6 N >60 29 Laboratory 11/29/2015 [facility] Free T4 (Free 1.29 High 0.61- 1.12 test finding [address] Thyroxine) ng/[place] [address] [phone] Lipid Profile 05/14/2015 [facility] Triglycerides 135 N 30, (Trig/Chol/HD [address] mg/dL 31 L) [place] [address] [phone] Cholesterol 164 mg/dL N 32 HDL Cholesterol 34.7 mg/dL N 33 LDL Cholesterol 102 mg/dL N 34 Comp Metabolic Panel 05/14/2015 [facility] Sodium 138 mmol/L N 133-[address] [place] [address] [phone] Potassium 4.3 mmol/L N 3.5-5.0 Chloride 105 [...] 102.6 N >60 35 Laboratory test 05/14/2015 [facility] TSH (Thyroid 0.31 Low 0.34-5.60 [address] Stim Horm) ?IU/mL [place], [place] [address] [phone] Hemoglobin A1c (Glyco HGB) 5.9 % N Less than 6.0 37 Laboratory test 08/16/2014 [facility] Rapid (SEE NOTE) [address] [address] B Antigen [phone] Laboratory test 05/31/2014 [facility] Human Negative N Negative [address] [place] [address] Virus Rna [phone] Cytology RUN DATE: 06/01/ SEE NOTE> 40 Pthi 05/29/2014 [facility] PTH Intact 5.2 pmol/L N 1.3-9.[address] [place], [place] [address] [phone] Calcium (PTH Intact) 10.1 mg/dL N 8.6-10.3 Laboratory test 05/29/2014 [facility] Hemoglobin A1c 5.7 % N Less than [address] 6.0 [place], [place] [address] [phone] Comp Metabolic 05/29/2014 [facility] Sodium 139 N 133-[address] mmol/[place] [address] [phone] Potassium 4.0 mmol/L N 3.5-5.0 42 Chloride [...] N >60 Egfr 86.6 N >60 43 Lipid Profile 05/29/2014 [facility] Triglycerides 126 mg/dL N 44 (Trig/Chol/HDL) [address] [place] [address] [phone] Cholesterol 177 mg/dL N 45 HDL Cholesterol 40.9 mg/dL N 46 LDL Cholesterol 111 mg/dL N 47 Laboratory test 05/29/2014 [facility] TSH (Thyroid 0.72 IU/mL N 0.34-5.[address] [place] [address] [facility]) [phone] Comp Metabolic 07/19/2013 Sodium 141 mmol/L 133-145 Panel Potassium 4.4 mmol/L 3.5-5.0 Chloride 108 mmol/L [...] Egfr Non- 73.4 >60 Egfr 94.4 >60 48 Laboratory test finding 07/19/2013 Hemoglobin A1c 6.1 % High Less than 6.0 49 Lipid Profile 07/19/2013 Triglycerides 98 mg/dL 40-200 (Trig/Chol/HDL) Cholesterol 192 mg/dL Less than 200 HDL Cholesterol 57 mg/dL 40-60 50 Cholesterol/HDL Ratio 3.4 Average 1-4.44 LDL Cholesterol 115.4 High Less Than 100 51 Laboratory test 04/26/2013 [facility] Surgical RUN DATE: [address] Pathology 04/28/ <[place] [address] NOTE> [phone] Laboratory test 04/25/2013 [facility] TSH (Thyroid 0.79 miu/mL 0.34- finding [address] Stimulating Horm) 5.60 [place] [address] [phone] Laboratory test 01/06/2013 [facility] Calcium Ionized 5.10 mg/ dL 4.65- finding [address] 5.28 [place] [address] [phone] Basic Metabolic 01/06/2013 [facility] Sodium 139 mmol/L 133- [address] [place] [address] [phone] Potassium 4.2 mmol/L 3.5-5.0 Chloride 104 mmol/L 101-111 Co2 Carbon Dioxide 29.0 mmol/L 22-32 Anion Gap 6.0 mmol/L 2-11 Glucose 115 mg/dL High 70-100 Blood Urea Nitrogen 16 mg/dL 6-24 Creatinine 0.70 mg/dL 0.50-1.40 BUN/Creatinine Ratio 22.9 High 8-20 Calcium 10.0 mg/dL High 8.1-9.9 Egfr Non- 85.6 >60 Egfr 110.1 >60 53 Lipid Profile 12/17/2012 [facility] Triglycerides 144 mg/dL 40-200 (Trig/Chol/HDL) [address] [place] [address] [phone] Cholesterol 174 mg/dL Less than 200 HDL Cholesterol 47 mg/dL 40-60 54 Cholesterol/HDL Ratio 3.7 Average 1-4.44 LDL Cholesterol 98.2 mg/dL Less Than 100 55 Pthi 12/17/2012 [facility] PTH Intact 4.0 pmol/L 1.3-9.[address] [place] [address] [phone] Calcium (PTH Intact) 10.5 mg/dL High 8.1-9.9 Laboratory test 12/17/2012 [facility] TSH (Thyroid 1.42 0.34- 5.[address] Stimulating miu/[place] [address] Horm) [phone] Comp Metabolic 12/17/2012 [facility] Sodium 139 mmol/L 133- [address] [place] [address] [phone] Potassium 3.8 mmol/L 3.5-5.0 Chloride 102 mmol/L [...] Egfr Non- 73.4 >60 Egfr 94.4 >60 56 Pthi 08/20/2012 [facility] PTH Intact 7.8 pmol/L 1.3-9.[address] [place] [address] [phone] Calcium (PTH Intact) 10.5 mg/dL High 8.1-9.9 Comp Metabolic Panel 08/19/2012 [facility] Sodium 141 mmol/L 133-[address] [place] [address] [phone] Potassium 4.4 mmol/L 3.5-5.0 Chloride 104 mmol/L [...] Egfr 82.7 >60 57 Laboratory test 08/19/2012 [facility] Stool Culture (SEE NOTE) [address] [place] [address] [phone] Spep Protein 11/21/2011 [facility] Albumin 3.10 GM/DL 3.0-4. Electro, Serum [address] [place] [address] [phone] Alpha 1 0.16 GM/DL 0.09-0.33 Alpha 2 0.97 GM/DL 0.59-1.18 Beta 0.89 GM/DL 0.68-1.02 Gamma 1.08 GM/DL 0.76-1.60 Albumin % 50.0 % 46-63 Alpha 1 % 2.6 % 1.2-5.3 Alpha 2 % 15.6 % 9-17 Beta % 14.4 % 10-16 Gamma % 17.4 % 12-22 A/G Ratio 1.0 0.9-2 Total Protein 6.2 GM/DL 6.2-8.1 Spep Comments (SEE NOTE) 59 Laboratory test finding 11/21/2011 [facility] Ast (Sgot) 21 U/L 12-[address] [place] [address] [phone] Alt (SGPT) 21 U/L 14-54 Vitamin B12 391 pg/mL 180-914 TSH 0.81 MIU/ML 0.34-5.60 Lipid Panel 11/21/2011 [facility] Triglyceride 88 mg/dL 40- [address] [place] [address] [phone] Cholesterol 161 mg/dL Less Than 200 60 High Density Lipoprotein 41 mg/dL 40-60 61 Cholesterol/HDL Ratio 3.93 AVERAGE 1-4.44 Low Density Lipoprotein 102 mg/dL High Less Than 100 62 Laboratory 09/24/2011 [facility] Surgical 63 test finding [address] Pathology <SEE NOTE> [place] [address] [phone] Comp Metabolic 01/10/2011 [facility] Sodium 139 mmol/L 135- Panel [address] [place] [address] [phone] Potassium 3.6 mmol/L 3.5-5.0 Chloride 102 mmol/L [...] 110.9 > 60 66 Lipid Profile 01/10/2011 [facility] Triglyceride 135 mg/dL 40 -200 (Trig/Chol/HDL) [address] [place] [address] [phone] Cholesterol 198 mg/dL Less Than 200 67 High Density Lipoprotein 53 mg/dL 40-60 68 Cholesterol/HDL Ratio 3.74 AVERAGE 1-4.44 Low Density Lipoprotein 118 mg/dL High Less Than 100 69 Laboratory test 01/10/2011 [facility] TSH 2.15 MIU/ML 0.34- 5.[address] [place] [address] [phone] Cytology 12/28/2009 [facility] Cytology [address] ---- <[place] [address] NOTE> [phone] 1 Because ethnic data is not always [...] troponins reflex immediate secondary confirmatory testing. 3 [facility] Severe Sepsis and Septic Shock Management Bundle Measure requires all lactic acids initially measuring >2.0 mmol/L be repeated. 4 SEE RESULT BELOW Name: CORA KHANNA : [address]: Efrain Alamo MD Acct: [id number] Unit: [id number] AGE: 63 Location: [place] [address]-01 Re10/30/18 Dis: 11/03/18 SEX: F Status: DIS IN SPEC: [id number] [place]: 10/31/[address] [facility] [address]: Julianne Ball MD REQ: [id number] RECD: 10/31/18 STATUS: COMP ALLEGRA DR: Ruthie Diaz MD _ SOURCE: BLOOD,VENO SPDESC: ORDERED: Blood Cult COMMENTS: Patient is On Antibiotics? NO Procedure Result Reported Site Aerobic Culture Bottle Final 11/05/18- 0200 ML No Growth Day 5 Anaerobic Culture Bottle Final 11/05/18- 0200 ML No Growth Day 5 * ML - Main Lab . END OF REPORT DEPARTMENT OF PATHOLOGY, [address] [place] [address] Joseph Calderon M.D. Director [facility] # [id number] 5 Desirable: <150 Borderline High: 150-199 High: 200-499 Very High: >500 6 Desirable: <200 Borderline High: 200-239 High: >239 7 Low: <40 Desirable: 40-60 High: >60 8 Desirable: <100 Near Optimal: 100-129 Borderline High: 130-159 High: 160-189 Very High: >189 9 Therapeutic target for the treatment of diabetes mellitus patients is <7% HBA1C, and in selective patients <6.0%. Please refer to [place] diabetic care guidelines for further information. 10 FASTING 10 HOUR 11 Because ethnic data is not always readily [...] 15-29 5 Kidney failure <15 (or dialysis) 12 Because ethnic data is not always [...] in selective patients <6.0%. Please refer to [place] diabetic care guidelines for further information. 19 FASTING 10 HOUR DO THIS PRIOR TO 06/15 APPT 20 Therapeutic target for the treatment of diabetes Mellitus patients is <7% HBA1C, and in selective patients <6.0%.Please refer to [place] Diabetic care guidelines for further [...] and in selective patients <6.0%.Please refer to [place] Diabetic care guidelines for further [...] and in selective patients <6.0%.Please refer to [place] Diabetic care guidelines for further information. 38 RUN DATE: 08/16/14 [facility] LAB LIVE PAGE 1 RUN TIME: [address] [place] [address] Specimen Inquiry Name: CORA KHANNA : [address]: Billy Jacinto NP Acct: [id number] Unit: [id number] AGE: 58 Location: [facility] Re08/16/14 SEX: F Status: REG REF SPEC: [id number] [place]: 08/16/[address]: Billy Jacinto NP REQ: [id number] RECD: 08/16/14 STATUS: COMP _ SOURCE: [facility]: ORDERED: Rapid Flu A B QUERIES: Provider Requisition # [id number] Procedure Result Verified Site Rapid Influenza A [...] performed at Main Lab DEPARTMENT OF PATHOLOGY, [facility] [employer] [place], [place] [address] Joseph Calderon M.D. Director [facility] # [id number] 39 The high-risk HPV types detected by the assay include: 16, 18, 31, 33, 35, 39, 45, 51, 52, 56, 58, 59, 66, and 68. 40 RUN DATE: 06/01/14 [facility] LAB LIVE PAGE 1 RUN TIME: [address] [place] [address] Specimen Inquiry Name: CORA KHANNA : [address]: Ruthie Diaz MD Acct: [id number] Unit: [id number] AGE: 58 Location: [facility] Re05/31/14 SEX: F Status: REG REF SPEC: [id number] [place]: 05/31/14-[address] [facility] [address]: Ruthie Diaz MD REQ: [id number] RECD: 05/31/14051 STATUS: SOUT _ ORDERED: IMAGE ANALYSIS, HPV/Thin [...] Abnormal Pap Smears?:N Signed (signature on file) JODI Estrella (ASCP) 06/01/14 3023 This Pap test was evaluated with the assistance of the [employer]oPol[employer]Prep Test Imaging System. Due to cytologic findings at the sheet sorter microscope, comprehensive manual rescreening by a Arts Administrator Or Manager may be required. The Pap Smear is [...] performed at Main Lab DEPARTMENT OF PATHOLOGY, [address] [place] [address] Joseph Calderon M.D. Director [facility] # [id number] 41 Therapeutic target for the treatment of diabetes Mellitus patients is <7% HBA1C, and in selective patients <6.0%.Please refer to [place] Diabetic care guidelines for further [...] 130-159 High 160-189 Very High >189 48 Because ethnic data is not always readily [...] 15-29 5 Kidney failure <15 (or dialysis) 49 Therapeutic target for the treatment of diabetes Mellitus patients is <7% HBA1C, and in selective patients <6.0%.Please refer to [place] Diabetic care guidelines for further information. 50 HDL Interpretation: Undesirable: High Risk: Less than 40 mg/dL Desirable: Low Risk: Greater than 60 mg/dL 51 LDL Interpretation: Low Risk Optimal Level: LDL Less than 100 mg/dL Near or Above Optimal: LDL 100-129 mg/dL Borderline High Risk: LDL 130-159 mg/dL High Risk: LDL 160-189 mg/dL Very High Risk: LDL Greater than 189 mg/dL 52 RUN DATE: 04/28/13 [facility] LAB LIVE PAGE 1 RUN TIME: [address] [place] [address] Specimen Inquiry Name: CORA KHANNA : [address]: Dominga Monterroso NP Acct: [id number] Unit: [id number] AGE: 57 Location: [facility] Re04/26/13 SEX: F Status: REG REF SPEC: [id number] [place]: 04/26/[address]: Dominga Monterroso NP REQ: [id number] RECD: 04/26/13 STATUS: SOUT _ ORDERED: LEVEL IV FINAL DIAGNOSIS Endometrium, biopsy: A. Scant, benign, fragmented endocervical mucosa and abundant mucus. B. Endometrium not present in sampled tissue. CLINICAL HISTORY No history given GROSS DESCRIPTION The specimen is received in formalin labeled Coranicolas Ulloaker, Undesignated, and consists of a 0.7 x 0.3 x 0.3 cm. white-retana mucoid aggregate of tissue. Submitted entirely, one cassette. Signed (signature on file) Rosaura Osborn MD 05/01 1641 END OF REPORT * ML=Testing performed at Main Lab DEPARTMENT OF PATHOLOGY, [address] [place] [address] Joseph Calderon M.D. Director [facility] Permit #[id number] 53 Because ethnic data is not always [...] 5 Kidney failure <15 (or dialysis) 54 HDL Interpretation: Undesirable: High Risk: Less than 40 mg/dL Desirable: Low Risk: Greater than 60 mg/dL 55 LDL Interpretation: Low Risk Optimal Level: LDL Less than 100 mg/dL Near or Above Optimal: LDL 100-129 mg/dL Borderline High Risk: LDL 130-159 mg/dL High Risk: LDL 160-189 mg/dL Very High Risk: LDL Greater than 189 mg/dL 56 Because ethnic data is not always readily [...] 15-29 5 Kidney failure <15 (or dialysis) 57 Because ethnic data is not always [...] <15 (or dialysis) 58 RUN DATE: 08/22/12 [facility] LAB LIVE PAGE 1 RUN TIME: [address] [place] [address] Specimen Inquiry Name: CORA KHANNA : [address]: Dominga Monterroso NP Acct: [id number] Unit: [id number] AGE: 56 Location: [facility] Re08/20/12 SEX: F Status: REG REF SPEC: [id number] [place]: 08/19/[address]: Dominga Monterroso NP REQ: [id number] RECD: 08/20/12 STATUS: COMP _ SOURCE: STOOL SPDESC: ORDERED: Stool Culture COMMENTS: Unable to perform Shiga Toxin testing. Specimen collection requirements were not met. Stool for Shiga Toxin testing must be received by the laboratory within 2 hours of collection or placed in [employer] transport medium. Verbal to Martha Mdeellin by [id number] at 1448 on 08/20/12. *please interpret stool culture result with caution* Stool specimen was not placed into appropriate transport medium within recommended time-frame. Testing may be less Sensitive. QUERIES: [facility] Number [id number] Procedure Result Verified Site Stool Culture Final [...] performed at Main Lab DEPARTMENT OF PATHOLOGY, [facility] [employer] [place] [address] Joseph Calderon M.D. Director [facility] Permit #[id number] RUN DATE: 08/22/12 [facility] LAB LIVE PAGE 2 RUN TIME: [address] [place] [address] Specimen Inquiry Patient: CORA KHANNA [id number] (Continued) Specimen: [id number] Collected: 08/19/12 Received: 08/20/12 (Continued) Procedure Result Verified Site Shiga Toxin 1 2 Final 08/20/12- 1038 ML Test not performed END OF REPORT * ML=Testing performed at Main Lab DEPARTMENT OF PATHOLOGY, [address] [place] [address] Joseph Calderon M.D. Director [facility] Permit #[id number] NORMAL ELECTROPHORETIC PATTERN. 60 CHOLESTEROL INTERPRETATION: [...] 189 MG/DL 63 ---- RUN DATE: 09/26/11 [facility] NMI LIVE PAGE 1 RUN TIME: 1537 Specimen Inquiry RUN USER: INTERFACE -- Name: CORA KHANNA Status: REG REF Re09/24/11 Age/Sex: 56/F Unit#: [id number] Location: [facility] : 53 -- [id number] [facility] Date:09/24/11 [facility] Dr: Dominga Monterroso [facility] Spec Type: SURGICAL P Received:09/25/11 Copies [...] 09/26/11 1537 -- -- DEPARTMENT OF PATHOLOGY, [address] [place] [address] [facility] Permit #[id number] Joseph Calderon M.D. Director Shmuel Barrow M.D. [employer]olded Good[employer] Operator Dir zahida -- 64 Anion gap measurement may be of limited value in the presence of any alkalosis, especially in a combined acid base disorder. . 65 A metabolite of Naproxen, O-desmethylnaproxen, has been shown to interfere with the Jendrabik-Manuel method for measuring total bilirubin. Samples from [...] 189 MG/DL 70 ---- RUN DATE: 01/01/10 [facility] NMI LIVE PAGE 1 RUN TIME: 0757 Specimen Inquiry RUN USER: INTERFACE -- Name: CORA KHANNA Status: REG REF Re12/28/09 Age/Sex: 54/F Unit#: [id number] Location: [facility]. : 51 -- Specimen: [id number] SOUT Spec Date: 12/28/[address]: Ruthie [...] was evaluated with the assistance of the NovoPolymersPrep Pap Test Imaging System. The Pap Smear [...] 01/01/10 0757 -- -- DEPARTMENT OF PATHOLOGY, [address] [place] [address] [facility] Permit #[id number] Joseph Calderon M.D. Director Shmuel Barrow M.D. Molded Goods Operator Dir zahida -- Procedures Date Code Description Status 09/13/201823241 Inject/Drain Joint/Bursa Major W/O US Completed 06/09/201811539 Inject/Drain Joint/Bursa Major W/O US Completed 04/29/2018 63724 Destruction Of Benign Lesions Any Method 1-14 lesions Completed 04/29/2018 01332 Destruction ALL Benign Or Premalignant Lesion (Other Completed Than [place] 11/05/2017 28549212 Mammogram Completed 03/09/2017 03129 Destruction Of Benign Lesions Any Method 1-14 lesions Completed 03/09/2017 82160 Destruction ALL Benign Or Premalignant Lesion (Other Completed Than [place] 03/09/2017 42807 Removal Skin Tags Up To 15 Completed 10/16/2016 17281283 Mammogram Completed 08/23/2016 41189 Holter Monitor Review (24 hr) review & interp only Completed 08/19/2016 19655 ECG Monitor/Recording W/Visual Superimposition Completed Scanning 08/19/2016 90174 EKG Tracing & Interpretation Completed 07/30/2015 94771591 Mammogram Completed 07/09/2015 40647076 Colonoscopy Completed 06/18/2015 86361 Inject/Drain Joint/Bursa Major W/O US Completed 07/28/2014 22778327 Mammogram Completed 07/19/2013 35210 EKG Tracing & Interpretation Completed 04/26/2013 45129 Endometrial Sampling W Or W/O Endocervical BX W Or W/O Completed Cerv Dilat 07/30/2012 45867134 Mammogram Completed 03/15/2012 00641 EKG Tracing & Interpretation Completed 09/24/2011 55199 Endometrial Sampling W Or W/O Endocervical BX W Or W/O Completed Cerv Dilat 07/17/2011 84868 EKG Tracing & Interpretation Completed 03/20/2011 87484121 Mammogram Completed 08/09/2010 57087984 Mammogram Completed 01/31/2010 22976851 Mammogram Completed 10/01/2009 25701 Endometrial Sampling W Or W/O Endocervical BX W Or W/O Completed Cerv Dilat 12/21/2007 51431 EKG Tracing & Interpretation Completed 12/21/2007 34958 EKG Tracing & Interpretation Completed 11/04/2004 15658640 Colonoscopy Completed 08/17/2001 804064929 Bone Mineral Density Test Completed Encounters Type Date Location Provider Dx Diagnosis Office Visit 11/02/2018 [facility] G[facility] Porfirio Francisco5.5 Chronic or 7:00a MD Morgan unspecified gastric ulcer with perforation Office Visit 10/31/2018 [facility] Gastroenterology Porfirio Francisco5.5 Chronic or 7:00a MD Morgan unspecified gastric ulcer with perforation Office Visit 10/30/2018 [facility] Francisco7.1 Acute peptic 7:00a Allen Alamo M.D. ulcer, site unspecified, with perforation Office Visit 10/28/2018 [facility] Internal Medicine Ruthie J01.90 Acute sinusitis, 9:00a Jacobo Diaz unspecified Z12.31 Encntr screen mammogram for malignant neoplasm of breast I10 Essential (primary) hypertension Office Visit 07/02/2018 10:15a Orthopedic Verenice M17.0 Bilateral primary Services Of Jacobo Conti osteoarthritis of C.M.A. knee M25.461 Effusion, right knee M25.462 Effusion, left knee M25.561 Pain in right knee M25.562 Pain in left knee Office Visit 06/18/2018 9:20a [facility] Internal Ruthie Z00.00 Encntr for Milli Diaz [...] in right hip Office Visit 04/29/2018 9:30a [facility] Dermatology Aiden Mariano, L82.1 Other seborrheic MD [...] L57.0 Actinic keratosis Office Visit 12/17/2017 8:40a [facility] Internal Ruthie I10 Essential ( primary) Medicine Jacobo Diaz hypertension E83.52 Hypercalcemia Z68.42 Body mass index (BMI) 45.0-49.9, adult Office Visit 10/08/2017 11:40a [facility] Internal Medicine Ruthie Diaz M.D. R05 Cough Z12.31 Encntr screen mammogram for malignant neoplasm of breast Office Visit 09/29/2017 [facility]opedic Neftaly Salcedo M72.2 Plantar fascial 3:15p Services Of MD lao C.M.A. Office Visit 06/15/2017 [facility] Internal Ruthie Z00.00 Encntr for general 3:00p Milli Diaz M.D. adult medical exam w/o abnormal findings E83.52 Hypercalcemia Office Visit 03/09/2017 9:10a [facility] Dermatology Aiden Mariano, L82.1 Other seborrheic MD [...] malformations of skin Office Visit 12/04/2016 3:20p [facility] Internal Ruthie I10 Essential ( primary) Medicine Jacobo Diaz hypertension R21 Rash and other nonspecific skin eruption Office Visit 08/19/2016 4:20p [facility] Internal Ruthie R00.2 Palpitations Medicine Jacobo Diaz Office Visit 06/06/2016 2:40p [facility] Internal Ruthie Z00.00 Encntr for general Medicine Jacobo Diaz adult medical exam w/o abnormal findings R73.01 Impaired fasting glucose I10 Essential (primary) hypertension E03.9 Hypothyroidism, unspecified Z12.31 Encntr screen mammogram for malignant neoplasm of breast Office Visit 11/29/2015 7:40a [facility] Internal Ruthie R09.89 Oth symptoms and Medicine [...] Low back pain Office Visit 05/31/2015 3:40p [facility] Internal Ruthie Z00.00 Encntr for Medicine Jacobo Diaz general adult medical exam w/o abnormal findings Z12.11 Encounter for screening for malignant neoplasm of colon M25.552 Pain in left hip Z12.31 Encntr screen mammogram for malignant neoplasm of breast I10 Essential (primary) hypertension E03.9 Hypothyroidism, unspecified Office Visit 12/01/2014 4:00p [facility] Internal Ruthie 401.1 Hypertension Milli Diaz M.D. Benign 244.9 Hypothyroidism Other Unspec 790.21 Impaired Fasting Glucose Office Visit 08/16/2014 4:00p [facility] Internal Billy Jacinto, REHABILITATION INSPECTOR 488.82 Influenza Due To Medicine Identified Influenza A Virus Resp Manfestat Office Visit 05/30/2014 11:20a [facility] Internal Ruthie V70.0 Examination Milli Diaz M.D. General Medical Routine AT Health Care Facility V76.2 Screening Malignant Neoplasm Cervix V76.12 Screening Mammogram Malig Jae Other 401.1 Hypertension Benign 272.2 Hyperlipidemia Mixed 790.21 Impaired Fasting Glucose 709.8 Skin Disorders Other Spec V06.1 Niszmnsizt-Ytkjjsj-Zcnvitdg Combined (DTaP) v04.89 Need For Prophylactic Vaccination & Inoculation Other Virus Office Visit 03/21/2014 2:20p [facility] Internal Dominga Monterroso, 719.45 Pain Joint Medicine N.P. Pelvic Region & Thigh 724.3 Sciatica Office Visit 10/20/2013 4:00p [facility] Internal Ruthie 401.1 Hypertension Milli Diaz M.D. Benign 790.21 Impaired Fasting Glucose Office Visit 07/26/2013 3:40p [facility] Internal Nurse Visit A 401.1 Hypertension Medicine Benign Office Visit 07/19/2013 10:00a [facility] Internal Ruthie V72.84 Examination Milli iDaz M.D. Preoperative Unspec 401.1 Hypertension Benign 371.50 Corneal Dystrophy Unspec V76.10 Screening For Malignant Neoplasm Breast 783.1 Weight Gain Abnormal Office Visit 04/14/2013 [facility] Internal Dominga Monterroso, 627.1 Postmenopausal 8:40a Medicine N.P. Bleeding Office Visit 01/10/2013 [facility] Internal Ruthie 401.1 Hypertension Benign 4:00p Milli Diaz M.D. Office Visit 08/19/2012 Allen Monterroso, 787.91 Diarrhea 10:00a Medicine N.P. Office Visit 07/19/2012 [facility] Internal Ruthie V70.0 Examination General 10:20a Milli Diaz M.D. 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 Examination V70.0 Examination General Medical Routine AT Health Care Facility 401.1 Hypertension Benign Office Visit 09/24/2009 DO Not Use Dominga 627.1 Postmenopausal 3:45p [place] Varn, N.P. Bleeding Office Visit 07/24/2009 DO Not Use [place], 244.9 Hypothyroidism 3:30p Harpal Woody M.D. 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 Examination 401.1 Hypertension Benign Office Visit 06/21/2008 DO Not Use [place], 272.4 Hyperlipidemia 3:45p Harpal Woody M.D. 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 Benign Plan of Treatment Future Appointment(s):12/24/2018 10:00 am - Porfirio Mora MD at [facility] Zyvmervnburnxyfm28/24/2019 11:15 am - Verenice Conti M.D. at [facility]06/20/2019 1:20 pm - Ruthie Diaz M.D. at [facility] Internal [id number] - Dominga Monterroso N.P.K27.1 Acute peptic ulcer, site unspecified, with perforationComments:I am glad you are feeling better. I suggest you stop taking Aspirin, Ibuprofen, or Naproxen.I also would advise you to stay away from spicy , greasy, and acidic foods. Coffee and alcohol can be irritating as well.
--- OUTSIDE RECORDS SUMMARY | 2018-11-12 19:50 | XMS REPORT | Continuity of Care Document ---
:1955 External Reference #:[id number] Author Name Leanna Young Care Team Providers Name Role Phone Ruthie Diaz MD Primary Care Physician Unavailable Payers Date Identification Numbers Payment Provider Subscriber Policy Number: [id number] Medicare Cora Khanna PayID: [id number] [address] [place] [address] Effective: 2011 Policy Number: [id number] [facility] Cora Khanna PayID: [id number] [address] [address] [place] [address] Advance Directives Description No Information Available Problems [...] 55 Years) Father due to Heart Disease [place] at 45 : (age 50 Years) Mother due to Aneurysm cerebral First Brother Heart Disease Second Brother Heart Disease Social History Type Date Description Comments Sex Unknown Marital Status Lives With 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, [facility] every day M.D. Losartan Potassium 1 by mouth 90tabs I10 [facility], 02/26/2018 50mg every day M.D. Tablets Aspirin 1 po qday Dominga Loc, 04/26/2013 81mg N.P. Spironolactone take 1/2 tablet 45tabs I10 [facility], 12/23/2012 25mg Tablets by mouth once M.D. daily Amlodipine Besylate take 1 tablet 90tabs I10 [facility], 07/19/2012 2.5mg by mouth once M.D. Tablets daily Wrist Brace/Suede 2units 782.0 [facility], 07/17/2011 Finish/Right And Left M.D. Misc Atorvastatin Calcium take 1 tablet 90tabs E78.2 [facility], 2010 40mg by mouth once M.D. Tablets daily Levothyroxine Sodium take 1 tablet 90tabs [facility], 12/26/2009 175mcg by mouth once M.D. Tablets daily Lotemax Noble, 0.5% Suspension MD John Timolol Maleate Noble, Ophthalmic Gel Forming MD John 0.5% GFS History Medications Doxycycline Hyclate 1 tab by mouth 14tabs J01.90 [facility] 10/29/2018 - twice a day for 7 Jacobo Diaz Unknown 100mg Tablets days Azithromycin 2 tabs by mouth on 6tabs J01.90 Ruthie 10/28/2018 - 250mg day 1; 1 tab by Jacobo Diaz 10/29/2018 Tablets mouth every day on days 2-5 Cheratussin ac take 5-10 118ml J01.90 Ruthie 10/28/2018 - milliliters every Foreign DiazDSkyler Unknown 100-10mg/5ML Syrup 4-6 hours as needed for cough. Irbesartan 1 by mouth every 90tabs I10 [facility] 02/15/2018 - 150mg day Joe M.D. 02/26/2018 Tablets Cheratussin ac take 5-10 118ml R05 Ruthie 10/08/2017 - milliliters every Farrell, M.D. 10/18/2017 100-10mg/5ML Syrup 4-6 hours as needed for cough. Doxycycline Hyclate 1 tab by mouth 20tabs R05 Ruthie 10/08/2017 - twice a day for 10 Farrell M.D. 10/18/2017 100mg Tablets days Valsartan take 1 tablet by 90tabs I10 Ruthie 06/22/2015 - 160mg mouth once daily Farrell M.DSkyler 02/15/2018 Tablets Naproxen 1 tablet with food 60tabs M25.552 Verenice Conti, 06/18/2015 - 500mg by mouth twice a M.D. 07/23/2015 Tablets day Cheratussin ac take 5-10 118ml 488.82 Billy Jacinto NP 08/16/2014 - milliliters every 08/23/2014 100-10mg/5ML Syrup 4-6 hours as needed for cough. Tamiflu take 75 mg by 10caps 487.1 Ruthie 08/16/2014 - 75mg mouth twice a day Jacobo Diaz 11/17/2014 Capsules Medrol (Beni) as directed 1Pak 719.45 Dominga Monterroso, 03/21/2014 - 4mg N.P. 03/27/2014 Tablets Tramadol HCL 1 tablet three to 30tabs 719.45 Dominga Monterroso, 03/21/2014 - 50mg four times daily N.P. 03/31/2014 Tablets as needed Diovan take 1 tablet by 90tabs Ruthie 12/19/2012 - 160mg mouth once daily Farrell M.DSkyler 06/22/2015 Tablets Valsartan/Hydrochlo take 1 tablet by 30tabs Ruthie 07/19/2012 - rothiazide mouth once daily FarrellArcenio.DSkyler 12/19/2012 160-25mg Tablets Cipro 1 po bid for 7 14tabs Ruthie 09/25/2011 - 500mg Tablets days Foreign DiazDSkyler 10/02/2011 Diovan HCT take 1 tablet by 30tabs Ruthie 08/01/2010 - 160-25mg mouth once daily Joe M.D. 07/19/2012 Tablets Diovan HCT 1 tablet once 30tabs Urthie 01/18/2010 - daily Cotton, M.D. 08/01/2010 160-12.5mg [...] CPT Code Status Date Vaccine Lot # [id number] Given 04/01/2018 Influenza Virus Vaccine, Quadrivalent, Split, Preservative Free [id number] Given 04/20/2017 Influenza Virus Vaccine, Quadrivalent, Split, Preservative Free Q2035 Given 03/31/2016 Afluria Vaccine Q2035 Given 04/23/2015 Afluria Vaccine 87864 Given 05/30/2014 Zoster (Zostavax) [id number] Given 05/30/2014 Tdap - Tetanus/Diptheria/Acellular Pertussis [id number] Q2037 Given 04/17/2014 Fluvirin Im 3Yrs And Older Q2035 Given 05/06/2012 Afluria Vaccine Vital Signs Date Vital Result Comment 11/10/2018 11:08am Heart Rate 60 /min Respiratory [...] H/L Range Note CBC Auto Diff 10/30/2018 [facility] White Blood 17.3 10^3/uL High 3.5-10.[address] [place] [address] [phone] Red Blood Count 4.14 10^6/uL N 3.70-4.87 [...] Cells % 0 Comp Metabolic Panel 10/30/2018 [facility] Sodium 134 mmol/L Low 135-[address] [place] [address] [phone] Potassium 4.0 mmol/L N 3.5-5.0 Chloride 99 [...] 85.9 >60 1 Laboratory test finding 10/30/2018 [facility] Amylase 26 U/L Low 29-[address] [place] [address] [phone] Lipase 15 U/L N 11.0-82.0 C Reactive Protein 288.42 mg/L High <8.01 Troponin-I (TnI) 0.01 ng/mL <0.04 2 Lactic Acid 1.2 mmol/L N 0.5-2.0 3 Blood Culture SEE RESULT BELOW 4 Lipid Profile 06/16/2018 [facility] Triglycerides 105 mg/dL 5 (Trig/Chol/HDL) [address] [place] [address] [phone] Cholesterol 209 mg/dL 6 HDL Cholesterol 51.2 mg/dL 7 LDL Cholesterol 137 mg/dL 8 Laboratory test 06/16/2018 [facility] Hemoglobin A1c 6.0 % High 4.0-5.6 [address] (Glyco HGB) [place] [address] [phone] TSH (Thyroid Stim Horm) 1.19 mcIU/mL N 0.34-5.60 10 Comp Metabolic Panel 06/16/2018 [facility] Sodium 140 mmol/L N 135-145 [address] [place] [address] [phone] Potassium 4.4 mmol/L N 3.5-5.0 Chloride 106 [...] 100.3 >60 11 Basic Metabolic Panel 12/17/2017 [facility] Sodium 139 mmol/L N 139-145 [address] [place] [address] [phone] Potassium 4.5 mmol/L N 3.5-5.0 Chloride 105 mmol/L N 101-111 Co2 Carbon Dioxide 27 mmol/L N 22-32 Anion Gap 7 mmol/L N 2-11 Glucose 103 mg/dL High 70-100 Blood Urea Nitrogen 15 mg/dL N 6-24 Creatinine 0.71 mg/dL N 0.51-0.95 BUN/Creatinine Ratio 21.1 High 8-20 Calcium 10.0 mg/dL N 8.6-10.3 Egfr Non- 82.9 >60 Egfr 106.6 >60 12 Pthi 12/17/2017 [facility] Calcium (PTH Intact) 10.3 mg/dL N 8.6-10.3 [address] [place] [address] [phone] PTH Intact 5.6 pmol/L N 1.3-9.3 Lipid Profile 06/09/2017 [facility] Triglycerides 155 mg/dL 13 (Trig/Chol/HDL) [place] [address] [phone] Cholesterol 193 mg/dL 14 HDL Cholesterol 40.4 mg/dL 15 LDL Cholesterol 122 mg/dL 16 Comp Metabolic Panel 06/09/2017 [facility] Sodium 137 mmol/L N 133-145 [place] [address] [phone] Potassium 4.0 mmol/L N 3.5-5.0 Chloride 104 [...] Egfr 110.5 >60 17 Laboratory test 06/09/2017 [facility] Hemoglobin A1c 5.8 % High 4.0-5.6 18 finding 101 (Glyco HGB) [place] [address] [phone] TSH (Thyroid Stim Horm) 0.62 mcIU/mL N 0.34-5.60 19 Laboratory test 11/27/2016 [facility] Hemoglobin A1c 5.9 % N Less than 20 finding [facility] (Glyco HGB) 6.0 [place] [address] [phone] TSH (Thyroid Stim Horm) 1.07 mcIU/mL N 0.34-5.60 21 Basic Metabolic Panel 11/27/2016 [facility] Sodium 139 mmol/L N 133-145 [place] [address] [phone] Potassium 4.3 mmol/L N 3.5-5.0 Chloride 106 mmol/L N 101-111 Co2 Carbon Dioxide 28 mmol/L N 22-32 Anion Gap 5 mmol/L N 2-11 Glucose 116 mg/dL High 70-100 Blood Urea Nitrogen 18 mg/dL N 6-24 Creatinine 0.70 mg/dL N 0.51-0.95 BUN/Creatinine Ratio 25.7 High 8-20 Calcium 9.9 mg/dL N 8.6-10.3 Egfr Non- 84.5 N >60 Egfr 108.7 N >60 22 Lipid Profile 05/29/2016 [facility] Triglycerides 125 mg/dL N 23 (Trig/Chol/HDL) [address] [place] [address] [phone] Cholesterol 192 mg/dL N 24 HDL Cholesterol 46.8 mg/dL N 25 LDL Cholesterol 120 mg/dL N 26 Comp Metabolic Panel 05/29/2016 [facility] Sodium 139 mmol/L N 133-[address] [place] [address] [phone] Potassium 4.3 mmol/L N 3.5-5.0 Chloride 104 [...] 89.6 N >60 27 Laboratory test 05/29/2016 [facility] Hemoglobin A1c 6.1 % High Less than [address] (Glyco HGB) 6.0 [place] [address] [phone] Laboratory test 11/29/2015 [facility] TSH (Thyroid 0.94 N 0.34 -5.[address] Stim Horm) ?IU/[place] [address] [phone] Basic Metabolic 11/29/2015 [facility] Sodium 140 N 133-[address] mmol/[place] [address] [phone] Potassium 4.1 mmol/L N 3.5-5.0 Chloride 107 mmol/L N 101-111 Co2 Carbon Dioxide 27 mmol/L N 22-32 Anion Gap 6 mmol/L N 2-11 Glucose 114 mg/dL High 70-100 Blood Urea Nitrogen 13 mg/dL N 6-24 Creatinine 0.72 mg/dL N 0.51-0.95 BUN/Creatinine Ratio 18.1 N 8-20 Calcium 9.9 mg/dL N 8.6-10.3 Egfr Non- 82.1 N >60 Egfr 105.6 N >60 29 Laboratory 11/29/2015 [facility] Free T4 (Free 1.29 High 0.61- 1.[address] Thyroxine) ng/[place] [address] [phone] Lipid Profile 05/14/2015 [facility] Triglycerides 135 N 30, (Trig/Chol/HD DRIVE mg/dL 31 L) [place] [address] [phone] Cholesterol 164 mg/dL N 32 HDL Cholesterol 34.7 mg/dL N 33 LDL Cholesterol 102 mg/dL N 34 Comp Metabolic Panel 05/14/2015 [facility] Sodium 138 mmol/L N 133-[address] [place] [address] [phone] Potassium 4.3 mmol/L N 3.5-5.0 Chloride 105 [...] 102.6 N >60 35 Laboratory test 05/14/2015 [facility] TSH (Thyroid 0.31 Low 0.34-5.60 [address] Stim Horm) ?IU/[place] [address] [phone] Hemoglobin A1c (Glyco HGB) 5.9 % N Less than 6.0 37 Laboratory test 08/16/2014 [facility] Rapid (SEE NOTE) [address] [place] [address] B Antigen [phone] Laboratory test 05/31/2014 [facility] Human Negative N Negative [address] [place] [address] Virus Rna [phone] Cytology RUN DATE: 06/01/ <SEE NOTE> 40 Pthi 05/29/2014 [facility] PTH Intact 5.2 pmol/L N 1.3-9.[address] [place] [address] [phone] Calcium (PTH Intact) 10.1 mg/dL N 8.6-10.3 Laboratory test 05/29/2014 [facility] Hemoglobin A1c 5.7 % N Less than [address] 6.0 [place], [place] [phone] Comp Metabolic 05/29/2014 [facility] Sodium 139 N 133-[address] mmol/[place] [address] [phone] Potassium 4.0 mmol/L N 3.5-5.0 42 Chloride [...] 86.6 N >60 43 Lipid Profile 05/29/2014 [facility] Triglycerides 126 mg/dL N 44 (Trig/Chol/HDL) [address] [place] [address] [phone] Cholesterol 177 mg/dL N 45 HDL Cholesterol 40.9 mg/dL N 46 LDL Cholesterol 111 mg/dL N 47 Laboratory test 05/29/2014 [facility] TSH (Thyroid 0.72 IU/mL N 0.34-5.[address] [place] [address] Horm) [phone] Comp Metabolic 07/19/2013 Sodium 141 mmol/L 133-145 [...] Less Than 100 51 Laboratory test 04/26/2013 [facility] Surgical RUN DATE: [address] Pathology 04/28/ <[place] [address] NOTE> [phone] Laboratory test 04/25/2013 [facility] TSH (Thyroid 0.79 miu/mL 0.34- finding [address] Stimulating Horm) 5.60 [place] [address] [phone] Laboratory test 01/06/2013 [facility] Calcium Ionized 5.10 mg/ dL 4.65- finding [address] 5.28 [place] [address] [phone] Basic Metabolic 01/06/2013 [facility] Sodium 139 mmol/L 133- [address] [place] [address] [phone] Potassium 4.2 mmol/L 3.5-5.0 Chloride 104 mmol/L 101-111 Co2 Carbon Dioxide 29.0 mmol/L 22-32 Anion Gap 6.0 mmol/L 2-11 Glucose 115 mg/dL High 70-100 Blood Urea Nitrogen 16 mg/dL 6-24 Creatinine 0.70 mg/dL 0.50-1.40 BUN/Creatinine Ratio 22.9 High 8-20 Calcium 10.0 mg/dL High 8.1-9.9 Egfr Non- 85.6 >60 Egfr 110.1 >60 53 Lipid Profile 12/17/2012 [facility] Triglycerides 144 mg/dL 40-200 (Trig/Chol/HDL) [address] [place] [address] [phone] Cholesterol 174 mg/dL Less than 200 HDL Cholesterol 47 mg/dL 40-60 54 Cholesterol/HDL Ratio 3.7 Average 1-4.44 LDL Cholesterol 98.2 mg/dL Less Than 100 55 Pthi 12/17/2012 [facility] PTH Intact 4.0 pmol/L 1.3-9.[address] [place] [address] [phone] Calcium (PTH Intact) 10.5 mg/dL High 8.1-9.9 Laboratory test 12/17/2012 [facility] TSH (Thyroid 1.42 0.34- 5.[address] Stimulating miu/[place] [address] Horm) [phone] Comp Metabolic 12/17/2012 [facility] Sodium 139 mmol/L 133- [address] [place] [address] [phone] Potassium 3.8 mmol/L 3.5-5.0 Chloride 102 mmol/L [...] >60 Egfr 94.4 >60 56 Pthi 08/20/2012 [facility] PTH Intact 7.8 pmol/L 1.3-9.[address] [place] [address] [phone] Calcium (PTH Intact) 10.5 mg/dL High 8.1-9.9 Comp Metabolic Panel 08/19/2012 [facility] Sodium 141 mmol/L 133-[address] [place] [address] [phone] Potassium 4.4 mmol/L 3.5-5.0 Chloride 104 mmol/L [...] Egfr 82.7 >60 57 Laboratory test 08/19/2012 [facility] Stool Culture (SEE NOTE) 58 finding [address] [place] [address] [phone] Spep Protein 11/21/2011 [facility] Albumin 3.10 GM/DL 3.0-4. Electro, Serum 101 [facility] 35 [place] [address] [phone] Alpha 1 0.16 GM/DL 0.09-0.33 Alpha 2 0.97 GM/DL 0.59-1.18 Beta 0.89 GM/DL 0.68-1.02 Gamma 1.08 GM/DL 0.76-1.60 Albumin % 50.0 % 46-63 Alpha 1 % 2.6 % 1.2-5.3 Alpha 2 % 15.6 % 9-17 Beta % 14.4 % 10-16 Gamma % 17.4 % 12-22 A/G Ratio 1.0 0.9-2 Total Protein 6.2 GM/DL 6.2-8.1 Spep Comments (SEE NOTE) 59 Laboratory test finding 11/21/2011 [facility] Ast (Sgot) 21 U/L 12-[address] [facility] [place] [address] [phone] Alt (SGPT) 21 U/L 14-54 Vitamin B12 391 pg/mL 180-914 TSH 0.81 MIU/ML 0.34-5.60 Lipid Panel 11/21/2011 [facility] Triglyceride 88 mg/dL 40- 200 [address] [place] [address] [phone] Cholesterol 161 mg/dL Less Than 200 60 High Density Lipoprotein 41 mg/dL 40-60 61 Cholesterol/HDL Ratio 3.93 AVERAGE 1-4.44 Low Density Lipoprotein 102 mg/dL High Less Than 100 62 Laboratory 09/24/2011 [facility] Surgical 63 test finding Pathology <SEE NOTE> [place] [address] [phone] Comp Metabolic 01/10/2011 [facility] Sodium 139 mmol/L [address] [place] [address] [phone] Potassium 3.6 mmol/L 3.5-5.0 Chloride 102 mmol/L [...] 110.9 > 60 66 Lipid Profile 01/10/2011 [facility] Triglyceride 135 mg/dL 40 -200 (Trig/Chol/HDL) [address] [place] [address] [phone] Cholesterol 198 mg/dL Less Than 200 67 High Density Lipoprotein 53 mg/dL 40-60 68 Cholesterol/HDL Ratio 3.74 AVERAGE 1-4.44 Low Density Lipoprotein 118 mg/dL High Less Than 100 69 Laboratory test 01/10/2011 [facility] TSH 2.15 MIU/ML 0.34- 5.[address] [place] [address] [phone] Cytology 12/28/2009 [facility] Cytology [address] ---- <[place] [address] NOTE> [phone] 1 Because ethnic data is not always [...] troponins reflex immediate secondary confirmatory testing. [address] [facility] Severe Sepsis and Septic Shock Management Bundle Measure requires all lactic acids initially measuring >2.0 mmol/L be repeated. 4 SEE RESULT BELOW Name: CORA KHANNA : [address]: Efrain Alamo MD Acct: [id number] Unit: [id number] AGE: 63 Location: [facility] 332-01 Re10/30/18 Dis: 11/03/18 SEX: F Status: DIS IN SPEC: [id number] [place]: 10/31/[address] [facility] [address]: Julianne Ball MD REQ: [id number] RECD: 10/31/18 STATUS: COMP OTHR DR: Ruthie Diaz MD _ SOURCE: BLOOD,VENO SPDESC: ORDERED: Blood Cult COMMENTS: Patient is On Antibiotics? NO Procedure Result Reported Site Aerobic Culture Bottle Final 11/05/18- 0200 ML No Growth Day 5 Anaerobic Culture Bottle Final 11/05/18- 0200 ML No Growth Day 5 * ML - Main Lab . END OF REPORT DEPARTMENT OF PATHOLOGY, [address] [place] [address] Joseph Calderon M.D. Director [facility] # [id number] Desirable: <150 Borderline High: 150-199 High: 200-499 Very High: >500 6 Desirable: <200 Borderline High: 200-239 High: >239 7 Low: <40 Desirable: 40-60 High: >60 8 Desirable: <100 Near Optimal: 100-129 Borderline High: 130-159 High: 160-189 Very High: >189 9 Therapeutic target for the treatment of diabetes mellitus patients is <7% HBA1C, and in selective patients <6.0%. Please refer to [place] diabetic care guidelines for further [...] in selective patients <6.0%. Please refer to [place] diabetic care guidelines for further information. 19 FASTING 10 HOUR DO THIS PRIOR TO 06/15 APPT 20 Therapeutic target for the treatment of diabetes Mellitus patients is <7% HBA1C, and in selective patients <6.0%.Please refer to [place] Diabetic care guidelines for further [...] and in selective patients <6.0%.Please refer to [place] Diabetic care guidelines for further [...] and in selective patients <6.0%.Please refer to [place] Diabetic care guidelines for further information. 38 RUN DATE: 08/16/14 [facility] LAB LIVE PAGE 1 RUN TIME: [address] [place] [address] Specimen Inquiry Name: CORA KHANNA : [address]: Billy Jacinto BASKET BRAIDER Acct: [id number] Unit: [id number] AGE: 58 Location: [facility] Re08/16/14 SEX: F Status: REG REF SPEC: [id number] [place]: 08/16/14-[address] [facility] [address]: Billy Jacinto NP REQ: [id number] RECD: 08/16/14 STATUS: COMP _ SOURCE: [facility]: ORDERED: Rapid Flu A B QUERIES: Provider Requisition # [id number] Procedure Result Verified Site Rapid Influenza A B Antigen Final 08/16/14- 1952 ML Organism 1 Negative Influenza B Organism 2 POSITIVE INFLUENZA A Antigen testing by enzyme immunoassay. Cell culture testing can be performed to confirm negative test results and to assist in detecting other viruses that can produce similar clinical symptoms. Please notify Microbiology Lab if further testing is desired. END OF REPORT * ML=Testing performed at Main Lab DEPARTMENT OF PATHOLOGY, [address] [place] [address] Joseph Calderon M.D. Director [facility] # [id number] The high-risk HPV types detected by the assay include: 16, 18, 31, 33, 35, 39, 45, 51, 52, 56, 58, 59, 66, and 68. 40 RUN DATE: 06/01/14 [facility] LAB LIVE PAGE 1 RUN TIME: [address] [place] [address] Specimen Inquiry Name: CORA KHANNA : [address]: Ruthie Diaz MD Acct: [id number] Unit: [id number] AGE: 58 Location: [facility] Re05/31/14 SEX: F Status: REG REF SPEC: [id number] [place]: 05/31/14-[address]: Ruthie Diaz MD REQ: [id number] RECD: 05/31/14818 STATUS: SOUT _ ORDERED: IMAGE ANALYSIS, HPV/Thin [...] (signature on file) JODI Estrella (ASCP) 06/01/14 1425 This Pap test was evaluated with the assistance of the ThinPrep Test Imaging System. Due to cytologic findings at the hospice clinical marketer microscope, comprehensive manual rescreening by a Exercise Instruct may be required. The Pap Smear is [...] performed at Main Lab DEPARTMENT OF PATHOLOGY, [address] [place] [address] Joseph Calderon M.D. Director [facility] # [id number] 41 Therapeutic target for the treatment of diabetes Mellitus patients is <7% HBA1C, and in selective patients <6.0%.Please refer to [place] Diabetic care guidelines for further [...] and in selective patients <6.0%.Please refer to [place] Diabetic care guidelines for further [...] than 189 mg/dL 52 RUN DATE: 04/28/13 [facility] LAB LIVE PAGE 1 RUN TIME: [address] [place] [address] Specimen Inquiry Name: CORA KHANNA : [address]: Dominga Monterroso NP Acct: [id number] Unit: [id number] AGE: 57 Location: [facility] Re04/26/13 SEX: F Status: REG REF SPEC: [id number] [place]: 04/26/[address] [facility] [address]: Dominga Monterroso NP REQ: [id number] RECD: 04/26/13 STATUS: SOUT _ ORDERED: LEVEL IV FINAL DIAGNOSIS Endometrium, biopsy: A. Scant, benign, fragmented endocervical mucosa and abundant mucus. B. Endometrium not present in sampled tissue. CLINICAL HISTORY No history given GROSS DESCRIPTION The specimen is received in formalin labeled Cora Khanna, Undesignated, and consists of a 0.7 x 0.3 x 0.3 cm. white-retana mucoid aggregate of tissue. Submitted entirely, one cassette. Signed (signature on file) Rosaura Osborn MD 05/01 1641 END OF REPORT * ML=Testing performed at Main Lab DEPARTMENT OF PATHOLOGY, [address] [place] [address] Joseph Calderon M.D. Director [facility] Permit #[id number] 53 Because ethnic data is not always [...] <15 (or dialysis) 56 RUN DATE: 08/22/12 [facility] LAB LIVE PAGE 1 RUN TIME: [address] [place] [address] Specimen Inquiry Name: CORA KHANNA : [address]: Dominga Monterroso NP Acct: [id number] Unit: [id number] AGE: 56 Location: [facility] Re08/20/12 SEX: F Status: REG REF SPEC: [id number] [place]: 08/19/[address]: Dominga Monterroso NP REQ: [id number] RECD: 08/20/12 STATUS: COMP _ SOURCE: STOOL SPDESC: ORDERED: Stool Culture COMMENTS: Unable to perform Shiga Toxin testing. Specimen collection requirements were not met. Stool for Shiga Toxin testing must be received by the laboratory within 2 hours of collection or placed in Weiss-Odell transport medium. Verbal to Martha Medellin by [id number] at 1448 on 08/20/12. *please interpret stool culture result with caution* Stool specimen was not placed into appropriate transport medium within recommended time-frame. Testing may be less Sensitive. QUERIES: Medent Number [id number] Procedure Result Verified Site Stool Culture Final [...] performed at Main Lab DEPARTMENT OF PATHOLOGY, [facility] [place] [address] Joseph Calderon M.D. Director [facility] Permit #[id number] RUN DATE: 08/22/12 [facility] LAB LIVE PAGE 2 RUN TIME: [address] [place] [address] Specimen Inquiry Patient: CORA KHANNA [id number] (Continued) Specimen: [id number] Collected: 08/19/12 Received: 08/20/12 (Continued) Procedure Result Verified Site Shiga Toxin 1 2 Final 08/20/12- 1038 ML Test not performed END OF REPORT * ML=Testing performed at Main Lab DEPARTMENT OF PATHOLOGY, [address] [place] [address] Joseph Calderon M.D. Director [place] [employer] Permit #[id number] NORMAL ELECTROPHORETIC PATTERN. 60 CHOLESTEROL INTERPRETATION: [...] 189 MG/DL 63 ---- RUN DATE: 09/26/11 [facility] NMI LIVE PAGE 1 RUN TIME: 153 Specimen Inquiry RUN USER: INTERFACE -- Name: CORA KHANNA Status: REG REF Re09/24/11 Age/Sex: 56/F Unit#: [id number] Location: [facility]. : [birth year] -- Specimen: [id number] [facility] Spec Date:09/24/11-144 [facility] Dr: Dominga Monterroso [facility] Spec Type: SURGICAL P Received:09/25/11 Copies to: [...] 09/26/11 1537 -- -- DEPARTMENT OF PATHOLOGY, [address] [place] [address] [facility] Permit #[id number] Joseph Calderon M.D. Director Shmuel Barrow M.D. Machinist Apprentice Dir zahida -- 62 Anion gap measurement may be of limited value in the presence of any alkalosis, especially in a combined acid base disorder. . 65 A metabolite of Naproxen, O-desmethylnaproxen, has been shown to interfere with the Jendrassik-Damascus method for measuring total bilirubin. Samples from [...] 189 MG/DL 70 ---- RUN DATE: 01/01/10 [facility] NMI LIVE PAGE 1 RUN TIME: 756 Specimen Inquiry RUN USER: INTERFACE -- Name: CORA KHANNA Status: REG REF Re12/28/09 Age/Sex: 54/F Unit#: [id number] [facility] Specimen: [id number] Spec Date: 12/28/[address]: Ruthie Diaz MD Spec Type: CYTOLOGY [...] was evaluated with the assistance of the PathJumpPrep Pap Test Imaging System. The Pap Smear [...] 01/01/10 0757 -- -- DEPARTMENT OF PATHOLOGY, [address] [place] [address] [facility] Permit #[id number] Joseph Calderon M.D. Director Shmuel Barrow M.D. Machinist Apprentice Dir zahida -- Procedures Date Code Description Status 09/13/201866983 Inject/Drain Joint/Bursa Major W/O US Completed 06/09/201875557 Inject/Drain Joint/Bursa Major W/O US Completed 04/29/2018 37794 Destruction Of Benign Lesions Any Method 1-14 lesions Completed 04/29/2018 36698 Destruction ALL Benign Or Premalignant Lesion (Other Completed Than [place] 11/05/2017 [id number] Mammogram Completed 03/09/2017 06249 Destruction Of Benign Lesions Any Method 1-14 lesions Completed 03/09/2017 36305 Destruction ALL Benign Or Premalignant Lesion (Other Completed Than [place] 03/09/2017 82314 Removal Skin Tags Up To 15 Completed 10/16/2016 [id number] Mammogram Completed 08/23/2016 65013 Holter Monitor Review (24 hr)dr review & interp only Completed 08/19/2016 09913 ECG Monitor/Recording W/Visual Superimposition Completed Scanning 08/19/2016 57551 EKG Tracing & Interpretation Completed 07/30/2015 [id number] Mammogram Completed 07/09/2015 [id number] Colonoscopy Completed 06/18/201554182 Inject/Drain Joint/Bursa Major W/O US Completed 07/28/2014 [id number] Mammogram Completed 07/19/2013 76179 EKG Tracing & Interpretation Completed 04/26/2013 92162 Endometrial Sampling W Or W/O Endocervical BX W Or W/O Completed Cerv Dilat 07/30/2012 [id number] Mammogram Completed 03/15/2012 44886 EKG Tracing & Interpretation Completed 09/24/2011 93589 Endometrial Sampling W Or W/O Endocervical BX W Or W/O Completed Cerv Dilat 07/17/2011 92580 EKG Tracing & Interpretation Completed 03/20/2011 71702814 Mammogram Completed 08/09/2010 [id number] Mammogram Completed 01/31/2010 50359617 Mammogram Completed 10/01/2009 27080 Endometrial Sampling W Or W/O Endocervical BX W Or W/O Completed Cerv Dilat 12/21/2007 16548 EKG Tracing & Interpretation Completed 12/21/2007 64821 EKG Tracing & Interpretation Completed 11/04/2004 [id number] Colonoscopy Completed 08/17/2001 758806076 Bone Mineral Density Test Completed Encounters Type Date Location Provider Dx Diagnosis Office Visit 10/30/2018 Surgical Efrain Alamo, K27.1 Acute peptic 7:00a [facility] ulcer, site unspecified, with perforation Office Visit 10/28/2018 [facility] Ruthie Diaz, J01.90 Acute sinusitis, 9:00a M[facility] unspecified Z12.31 Encntr screen mammogram for malignant neoplasm of breast I10 Essential (primary) hypertension Office Visit 07/02/2018 10:15a [facility] Verenice M17.0 Bilateral primary Services Of Jacobo Conti osteoarthritis of [facility]. knee M25.461 Effusion, right knee M25.462 Effusion, left knee M25.561 Pain in right knee M25.562 Pain in left knee Office Visit 06/18/2018 9:20a [facility] Ruthie Z00.00 Encntr for Milli Diaz M.D. general adult medical exam w/o abnormal findings M25.559 Pain in unspecified hip Z68.41 Body mass index (BMI) 40.0-44.9, adult Office Visit 06/09/2018 9:00a [facility] Verenice Conti M25.562 Pain in left Of C.[facility].A. M.D. knee M25.561 Pain in right knee M25.462 Effusion, left knee M25.461 Effusion, right knee M17.0 Bilateral primary osteoarthritis of knee E66.01 Morbid (severe) obesity due to excess calories M25.552 Pain in left hip M25.551 Pain in right hip Office Visit 04/29/2018 9:30a [facility]at[facility] Aiden Mariano, L82.1 Other seborrheic MD [...] L57.0 Actinic keratosis Office Visit 12/17/2017 8:40a [facility] Ruthie I10 Essential ( primary) Medicine Jacobo Diaz hypertension E83.52 Hypercalcemia Z68.42 Body mass index (BMI) 45.0-49.9, adult Office Visit 10/08/2017 11:40a [facility] Medicine Ruthie Diaz M.D. R05 Cough Z12.31 Encntr screen mammogram for malignant neoplasm of breast Office Visit 09/29/2017 [facility] Neftaly Salcedo, M72.2 Plantar fascial 3:15p Services Of fibromatosis C.M.ASkyler Office Visit 06/15/2017 [facility] Ruthie Z00.00 Encntr for general 3:00p Medicine Jacobo Diaz adult medical exam w/o abnormal findings E83.52 Hypercalcemia Office Visit 03/09/2017 9:10a [facility] Aiden Mariano, L82.1 Other seborrheic MD [...] malformations of skin Office Visit 12/04/2016 3:20p [facility] Ruthie I10 Essential ( primary) Milli Diaz M.D. hypertension R21 Rash and other nonspecific skin eruption Office Visit 08/19/2016 4:20p [facility] Ruthie R00.2 Palpitations Milli Diaz M.D. Office Visit 06/06/2016 2:40p [facility] Ruthie Z00.00 Encntr for general Milli Diaz M.D. adult medical exam w/o abnormal findings R73.01 Impaired fasting glucose I10 Essential (primary) hypertension E03.9 Hypothyroidism, unspecified Z12.31 Encntr screen mammogram for malignant neoplasm of breast Office Visit 11/29/2015 7:40a [facility] Ruthie R09.89 Oth symptoms and Milli Diaz M.D. signs involving the circ and resp systems I10 Essential (primary) hypertension Z82.49 Family hx of ischem heart dis and oth dis of the circ sys Z87.891 Personal history of nicotine dependence Office Visit 06/18/2015 8:00a [facility] Verenice Gallito, M25.552 Pain in left Of C.M.A. M.D. hip M16.12 Unilateral primary osteoarthritis, left hip M70.62 Trochanteric bursitis, left hip M25.562 Pain in left knee M54.5 Low back pain Office Visit 05/31/2015 3:40p [facility] Ruthie Z00.00 Encntr for Milli Diaz M.D. general adult medical exam w/o abnormal findings Z12.11 Encounter for screening for malignant neoplasm of colon M25.552 Pain in left hip Z12.31 Encntr screen mammogram for malignant neoplasm of breast I10 Essential (primary) hypertension E03.9 Hypothyroidism, unspecified Office Visit 12/01/2014 4:00p [facility] Ruthie 401.1 Hypertension Milli Diaz M.D. Benign 244.9 Hypothyroidism Other Unspec 790.21 Impaired Fasting Glucose Office Visit 08/16/2014 4:00p [facility] Billy Jacinto NP 488.82 Influenza Due To Medicine Identified Influenza A Virus Resp Manfestat Office Visit 05/30/2014 11:20a [facility] Ruthie V70.0 Examination Milli Diaz M.D. General Medical Routine AT Health Care Facility V76.2 Screening Malignant Neoplasm Cervix V76.12 Screening Mammogram Malig Jae Other 401.1 Hypertension Benign 272.2 Hyperlipidemia Mixed 790.21 Impaired Fasting Glucose 709.8 Skin Disorders Other Spec V06.1 Kpgyervfwd-Jxrlaea-Ybkvduwi Combined (DTaP) v04.89 Need For Prophylactic Vaccination & Inoculation Other Virus Office Visit 03/21/2014 2:20p [facility] Dominga Monterroso, 719.45 Pain Joint Medicine N.P. Pelvic Region & Thigh 724.3 Sciatica Office Visit 10/20/2013 4:00p [facility] Ruthie 401.1 Hypertension Milli Diaz M.D. Benign 790.21 Impaired Fasting Glucose Office Visit 07/26/2013 3:40p [facility] Nurse Visit A 401.1 Hypertension Medicine Benign Office Visit 07/19/2013 10:00a [facility] Ruthie V72.84 Examination Milli Diaz M.D. Preoperative Unspec 401.1 Hypertension Benign 371.50 Corneal Dystrophy Unspec V76.10 Screening For Malignant Neoplasm Breast 783.1 Weight Gain Abnormal Office Visit 04/14/2013 [facility] Dominga Monterroso, 627.1 Postmenopausal 8:40a Medicine N.P. Bleeding Office Visit 01/10/2013 [facility] Ruthie 401.1 Hypertension Benign 4:00p Milli Diaz M.D. Office Visit 08/19/2012 [facility] Dominga Monterroso, 787.91 Diarrhea 10:00a Medicine N.P. Office Visit 07/19/2012 [facility] Ruthie V70.0 Examination General 10:20a Milli Diaz M.D. Medical Routine AT Health Care Facility V76.10 Screening For Malignant Neoplasm Breast V72.31 Routine Supervisor Dental Laboratory Examination 401.1 Hypertension Benign 244.9 Hypothyroidism Other Unspec Office Visit 03/15/2012 4:00p [facility] Ruthie 729.5 Pain In Limb Milli Diaz M.D. Office Visit 09/15/2011 8:40a [facility] Ruthie 627.1 Postmenopausal Milli Diaz M.D. Bleeding 401.1 Hypertension Benign 272.4 Hyperlipidemia Other Unspec Office Visit 07/17/2011 DO Not Use Ruthie V70.0 Examination 2:00p Harpal Diaz M.D. General Medical Routine AT Health Care Facility V72.31 Routine Supervisor Dental Laboratory Examination 401.1 Hypertension Benign 272.4 Hyperlipidemia Other [...] 12/28/2009 DO Not Use Ruthie V72.31 Routine Supervisor Dental Laboratory 3:15p Harpal Diaz M.D. Examination V70.0 Examination General Medical Routine AT [facility] 401.1 Hypertension Benign Office Visit 09/24/2009 DO Not Use Dominga 627.1 Postmenopausal 3:45p Allen-Nathaniel Varn, N.P. Bleeding Office Visit 07/24/2009 DO Not Use Radpromise, 244.9 Hypothyroidism 3:30p Harpal Woody M.D. Other Unspec 401.1 Hypertension Benign Office Visit 12/21/2008 DO Not Use Radomski, V72.31 Routine Supervisor Dental Laboratory 3:15p Harpal Woody M.D. Examination 401.1 Hypertension Benign Office Visit 06/21/2008 DO Not Use Radpromise 272.4 Hyperlipidemia 3:45p Harpal Woody M.D. Other Unspec 244.9 Hypothyroidism Other Unspec 401.1 Hypertension Benign Office Visit 12/21/2007 DO Not Use Radomski, V72.31 Routine Supervisor Dental Laboratory 3:15p Harpal Woody M.D. Examination 401.1 Hypertension Benign Office Visit 10/13/2006 3:30p DO Not Use Annalise Pathak, 785.1 Palpitations Harpal Centeno 401.1 Hypertension Benign 272.0 Hypercholesterolemia Pure 244.9 Hypothyroidism Other Unspec V72.31 Routine Supervisor Dental Laboratory Examination Office Visit 03/19/2006 DO Not Use Lawson, 401.1 Hypertension 3:00p Harpal Woody M.D. Benign Plan of Treatment Future Appointment(s):12/24/2018 10:00 am - Porfirio Mora MD at [facility] Rkgjrhjgccqunaus42/24/2019 11:15 am - Verenice Conti M.D. at [facility]06/20/2019 1:20 pm - Ruthie Diaz M.D. at [facility] Internal [id number] - Efrain Alamo M.D.K27.1 Acute peptic ulcer, site unspecified, with perforationFollow up:As needed
[2018-11-12 21:42] LABS: ALT 21 U/L (7-52); AST 14 U/L (13-39); Albumin 3.8 g/dL (3.2-5.2); Albumin/Globulin Ratio 0.9 (1-3); Alkaline Phosphatase 30 U/L (34-104); Anion Gap 11 mmol/L (2-11); BUN/Creatinine Ratio 23.2 (8-20); Blood Urea Nitrogen 16 mg/dL (6-24); C Reactive Protein 255.06 mg/L (<8.01); CO2 Carbon Dioxide 23 mmol/L (22-32); Calcium 9.9 mg/dL (8.6-10.3); Chloride 97 mmol/L (101-111); EGFR African American 103.3 (>60); EGFR Non-African American 85.4 (>60); Globulin 4.1 g/dL (2-4); Glucose 128 mg/dL (70-100); Potassium 3.9 mmol/L (3.5-5.0); Sodium 131 mmol/L (135-145); Total Protein 7.9 g/dL (6.4-8.9)
[2018-11-12 21:43] LABS: Troponin I 0.01 ng/mL (<0.04)
[2018-11-12 21:53] LABS: ABS Basophils 0.1 10^3/ul (0-0.2); ABS Eosinophils 0 10^3/ul (0-0.6); ABS Lymphocytes 1.1 10^3/ul (1.0-4.8); ABS Monocytes 1.2 10^3/ul (0-0.8); ABS Neutrophils 12.9 10^3/ul (1.5-7.7); ABS Nucleated RBC 0 10^3/ul; Activated Partial Thrombo Time 30.8 seconds (26.0-36.3); Eosinophil % 0.1 %; Hematocrit 37 % (33-41); Hemoglobin 12.5 g/dL (12.0-16.0); INR 1.41 (0.82-1.09); Lymphocyte % 7.4 %; Mean Corpuscular HGB Conc 33 g/dL (31-36); Mean Corpuscular Hemoglobin 31 pg (27-31); Mean Corpuscular Volume 92 fL (80-97); Nucleated Red Blood Cells % 0.1; Platelet Count 407 10^3/uL (150-450); Red Blood Count 4.09 10^6 /uL (3.70-4.87); Red Cell Distribution Width 15 % (10.5-15); White Blood Count 15.2 10^3/uL (3.5-10.8)
[2018-11-12] MEDS ORDERED: Morphine 4 MG/ML VIAL (1 ml) 4 MG/ML VIAL IV ONE (22:52)
[2018-11-12] MEDS ORDERED: Ondansetron INJ* 2 MG/ML VIAL IV ONE (22:52)
--- NOTE | 2018-11-12 22:52 | ED ---
Abdominal Pain/Female - HPI Summary HPI Summary: This patient is a 63 year old F presenting to [facility] accompanied by with a chief complaint of intermittent fever that began 11/10/2018. The patient rates the pain 6/10 in severity. Symptoms aggravated by nothing. Symptoms alleviated by nothing. Patient reports abd pain and nausea. Patient states she had abdominal surgery by Dr. Alamo approximately 2 weeks ago. Patient states she had a CBC performed earlier today, and was referred to [facility] due to an elevated white blood cell count. - History of Current Complaint Chief Complaint: EDAbdPain Stated Complaint: FEVER AFTER SURGERY PER PT Time Seen by Provider: 11/12/18 22:40 Hx Obtained From: Patient ?: No Onset/Duration: Sudden Onset, Lasting Days, Still Present Timing: Constant Severity Initially: Moderate Severity Currently: Moderate Pain Intensity: 6 Pain Scale Used: 0-10 Numeric Location: Diffuse Radiates: No Aggravating Factor(s): Nothing Alleviating Factor(s): Nothing Associated Signs and Symptoms: Positive: Fever, Nausea Allergies/Adverse Reactions: Allergies Allergy/AdvReac Type Severity Reaction Status Date / Time meperidine [From Demerol] Allergy Nausea And Verified 10/30/18 14:09 Vomiting pineapple Allergy Hives Verified 10/30/18 14:09 Home Medications: Home Medications Levothyroxine TAB* [Synthroid TAB*] 175 mcg PO DAILY 11/12/18 [History Confirmed 11/12/18] Losartan Potassium [Cozaar] 50 mg PO DAILY 11/12/18 [History Confirmed 11/12/18] PMH/Surg Hx/FS Hx/Imm Hx Previously Healthy: No Endocrine/Hematology History: Reports: Hx Thyroid Disease Denies: Hx Diabetes Cardiovascular History: Reports: Hx Hypertension Respiratory History: Reports: Other Respiratory Problems/Disorders - sinus infection at the moment Denies: Hx Asthma, Hx Chronic Obstructive Pulmonary Disease (COPD) GI History: Denies: Hx Ulcer History: Denies: Hx Renal Disease Musculoskeletal History: Reports: Other Musculoskeletal History - knee pain Sensory History: Denies: Hx Contacts or Glasses - reading glasses, Hx Deafness, Hx Hearing Aid , Hx Hearing Problem Opthamlomology History: Denies: Hx Contacts or Glasses - reading glasses - Cancer History Hx Chemotherapy: No Hx Radiation Therapy: No - Surgical History Surgery Procedure, Year, and Place: cataracts - corneal transplants. 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 ankle, vitaly, tubal ligation, knee, t&a Hx Anesthesia Reactions: No Infectious Disease History: No Infectious Disease History: Denies: Hx Clostridium Difficile, Hx Hepatitis, Hx Human Immunodeficiency Virus (HIV), Hx of Known/Suspected MRSA, Hx Shingles, Hx Tuberculosis, Traveled Outside the [place] in Last 30 Days - Family History Known Family History: Positive: Hypertension - Social History Occupation: Retired Lives: With Family Alcohol Use: None Hx Substance Use: No Substance Use Type: Reports: None Hx Tobacco Use: No Smoking Status (MU): Never Smoked Tobacco Review of Systems Positive: Fever Positive: Abdominal Pain, Nausea All Other Systems Reviewed And Are Negative: Yes Physical Exam - Summary Physical Exam Summary: Appearance: Well appearing, no pain distress Skin: warm, dry, reflects adequate perfusion Head/face: normal Eyes: EOMI, ALFRED ENT: normal Neck: supple, non-tender Respiratory: CTA, breath sounds present Cardiovascular: RRR, pulses symmetrical Abdomen: tenderness in the epigastric area, Musculoskeletal: normal, strength/ROM intact Neuro: normal, sensory motor intact, A&Ox3 Triage Information Reviewed: Yes Vital Signs On Initial Exam: Initial Vitals Temp Pulse Resp BP Pulse Ox 99.1 F 92 18 127/82 93 11/12/18 19:38 11/12/18 19:38 11/12/18 19:38 11/12/18 19:38 11/12/18 19:38 Vital Signs Reviewed: Yes Diagnostics - Vital Signs Vital Signs Temp Pulse Resp BP Pulse Ox 11/12/18 22:40 100.3 F 11/12/18 22:35 82 131/76 97 11/12/18 21:29 99.9 F 88 18 121/79 95 11/12/18 19:38 99.1 F 92 18 127/82 93 - Laboratory Lab Results: Lab Results 11/12/18 11/12/18 11/12/18 Range/Units 21:05 21:05 21:05 WBC 15.2 H (3.5-10.8) 10^3/uL RBC 4.09 (3.70-4.87) 10^6 /uL Hgb 12.5 (12.0-16.0) g/dL Hct 37 (33-41) % MCV 92 (80-97) fL MCH 31 (27-31) pg MCHC 33 (31-36) g/dL RDW 15 (10.5-15) % Plt Count 407 (150-450) 10^3/uL MPV 8.0 (7.4-10.4) fL Neut % (Auto) 84.4 % Lymph % (Auto) 7.4 % [place] % (Auto) 7.7 % Eos % (Auto) 0.1 % Baso % (Auto) 0.4 % Absolute Neuts (auto) 12.9 H (1.5-7.7) 10^3/ul Absolute Lymphs (auto) 1.1 (1.0-4.8) 10^3/ul Absolute Monos (auto) 1.2 H (0-0.8) 10^3/ul Absolute Eos (auto) 0 (0-0.6) 10^3/ul Absolute Basos (auto) 0.1 (0-0.2) 10^3/ul Absolute Nucleated RBC 0 10^3/ul Nucleated RBC % 0.1 INR (Anticoag Therapy) 1.41 H (0.82-1.09) APTT 30.8 (26.0-36.3) seconds Sodium 131 L (135-145) mmol/L Potassium 3.9 (3.5-5.0) mmol/L Chloride 97 L (101-111) mmol/L Carbon Dioxide 23 (22-32) mmol/L Anion Gap 11 (2-11) mmol/L BUN 16 (6-24) mg/dL Creatinine 0.69 (0.51-0.95) mg/dL Est GFR ( Amer) 103.3 (>60) Est GFR (Non-Af Amer) 85.4 (>60) BUN/Creatinine Ratio 23.2 H (8-20) Glucose 128 H (70-100) mg/dL Lactic Acid (0.5-2.0) mmol/L Calcium 9.9 (8.6-10.3) mg/dL Total Bilirubin 0.60 (0.2-1.0) mg/dL AST 14 (13-39) U/L ALT 21 (7-52) U/L Alkaline Phosphatase 30 L (34-104) U/L Troponin I 0.01 (<0.04) ng/mL C-Reactive Protein 255.06 H (<8.01) mg/L Total Protein 7.9 (6.4-8.9) g/dL Albumin 3.8 (3.2-5.2) g/dL Globulin 4.1 H (2-4) g/dL Albumin/Globulin Ratio 0.9 L (1-3) Lipase < 10 L (11.0-82.0) U/L 11/12/18 Range/Units 21:05 WBC (3.5-10.8) 10^3/uL RBC (3.70-4.87) 10^6 /uL Hgb (12.0-16.0) g/dL Hct (33-41) % MCV (80-97) fL MCH (27-31) pg MCHC (31-36) g/dL RDW (10.5-15) % Plt Count (150-450) 10^3/uL MPV (7.4-10.4) fL Neut % (Auto) % Lymph % (Auto) % [place] % (Auto) % Eos % (Auto) % Baso % (Auto) % Absolute Neuts (auto) (1.5-7.7) 10^3/ul Absolute Lymphs (auto) (1.0-4.8) 10^3/ul Absolute Monos (auto) (0-0.8) 10^3/ul Absolute Eos (auto) (0-0.6) 10^3/ul Absolute Basos (auto) (0-0.2) 10^3/ul Absolute Nucleated RBC 10^3/ul Nucleated RBC % INR (Anticoag Therapy) (0.82-1.09) APTT (26.0-36.3) seconds Sodium (135-145) mmol/L Potassium (3.5-5.0) mmol/L Chloride (101-111) mmol/L Carbon Dioxide (22-32) mmol/L Anion Gap (2-11) mmol/L BUN (6-24) mg/dL Creatinine (0.51-0.95) mg/dL Est GFR ( Amer) (>60) Est GFR (Non-Af Amer) (>60) BUN/Creatinine Ratio (8-20) Glucose (70-100) mg/dL Lactic Acid 0.6 (0.5-2.0) mmol/L Calcium (8.6-10.3) mg/dL Total Bilirubin (0.2-1.0) mg/dL AST (13-39) U/L ALT (7-52) U/L Alkaline Phosphatase (34-104) U/L Troponin I (<0.04) ng/mL C-Reactive Protein (<8.01) mg/L Total Protein (6.4-8.9) g/dL Albumin (3.2-5.2) g/dL Globulin (2-4) g/dL Albumin/Globulin Ratio (1-3) Lipase (11.0-82.0) U/L Result Diagrams: 11/12/18 21:05 11/12/18 21:05 Lab Statement: Any lab studies that have been ordered have been reviewed, and results considered in the medical decision making process. - CT CT Abdomen and Pelvis CT Interpretation Completed By: Radiologist Summary of CT Findings: CT abdomen and pelvis reveals, per radiologist, 1. 3.8 cm x 5.7 cm x 6.5 cm abscess adjacent to the anterior aspect of the gastric antrum, which has developed since the prior CT scan on 10/30/2018. 2. Small amount of free air in the upper abdomen, which has significantly. improved compared to the prior CT scan on 10/30/2018. 3. Thickening of the wall of the antrum of the stomach, which may be. inflammatory and/or postsurgical in nature. ED physician has reviewed this radiology report. - EKG 2047 Cardiac Rate: NL EKG Rhythm: Sinus Rhythm - 83 BPM Summary of EKG Findings: An EKG taken at 2047 reveals nml sinus rhythm at 83 BPM with no acute changes. Abdominal Pain Fem Course/Dx - Course Course Of Treatment: This patient is a 63 year old F presenting to [facility] accompanied by with a chief complaint of intermittent fever that began . Patient states she had a CBC performed earlier today, and was referred to [facility] due to an elevated white blood cell count. Physical Exam Findings: Tenderness in the epigastric area. An EKG taken at 2047 reveals nml sinus rhythm at 83 BPM with no acute changes. CT abdomen and pelvis reveals, per radiologist, 1. 3.8 cm x 5.7 cm x 6.5 cm abscess adjacent to the anterior aspect of the gastric antrum, which has developed since the prior CT scan on . 2. Small amount of free air in the upper abdomen, which has significantly improved compared to the prior CT scan on 10/30/2018. 3. Thickening of the wall of the antrum of the stomach, which may be inflammatory and/or postsurgical in nature. Bloodwork obtained. In the ED course the patient was given contrast, morphine, fluids, and Zofran. Consult with Dr. Daugherty ( hospitalist) at 0120. He agrees to admit the patient for further evaluation. The patient is agreeable with this plan. - Diagnoses Differential Diagnosis: Positive: Other - ABD ABSCESS Provider Diagnoses: Intra-abdominal abscess, Post-operative complication Discharge - Sign-Out/Discharge Documenting (check all that apply): Patient Departure - Admit to [facility] [place] Patient Received Moderate/Deep Sedation with Procedure: No - Discharge Plan Condition: Stable Disposition: ADMITTED TO [facility] Referrals: Ruthie Diaz MD [Primary Care Provider] - - Billing Disposition and Condition Condition: STABLE Disposition: Admitted to [facility] - Attestation Statements Document Initiated by Ellee: Yes Documenting Scribe: Ada Che Provider For Whom Aidan is Documenting (Include Credential): Dr. Jelani Cervantes MD Scribe Attestation: IAda, scribed for Dr. Jelani Cervantes MD on 11/13/18 at 0142. Scribe Documentation Reviewed: Yes Provider Attestation: The documentation as recorded by the Ada antonio accurately reflects the service I personally performed and the decisions made by me, Dr. Jelani Cervantes MD Status of Scribe Document: Viewed
[2018-11-12] MEDS ORDERED: NS 0.9% 1000 ML** 1,000 ML IV SCH (23:00)
[2018-11-13] MEDS ORDERED: Iohexol 300* (CONTRAST) 10 ML SDV IV ONE (00:13)
[2018-11-13 01:34] LABS: Urine Appearance Clear; Urine Bacteria Absent (Absent); Urine Bilirubin Negative (Negative); Urine Blood 1+ (Negative); Urine Color Yellow; Urine Glucose Negative (Negative); Urine Ketones Trace (Negative); Urine Nitrite Negative (Negative); Urine Protein Negative (Negative); Urine Red Blood Cell 1+(3-5/hpf) (Absent); Urine Specific Gravity > 1.060 (1.010-1.030); Urine Squamous Epithelial Cell Present (Absent); Urine Urobilinogen Negative (Negative); Urine White Blood Cell Absent (Absent)
[2018-11-13] MEDS ORDERED: Piperacillin/Tazobac ADVAN(*) 3.375 GM in NS 0.9% 100 ML* 100 ML IVPB ONE (01:37)
[2018-11-13] MEDS ORDERED: Acetaminophen TAB* 325 MG PO PRN (01:37)
[2018-11-13] MEDS ORDERED: Phytonadione SUBCUT/IM Adult* 10 MG/ML AMP (IM or SQ not preferred route) SUBCUT ONE (01:41)
[2018-11-13] MEDS ORDERED: Zosyn per Pharmacy* NOTE FOLLOW UP SCH (02:00)
[2018-11-13] MEDS: NS 0.9% 1000 ML** 1,000 ML IV SCH ×4 (02:02→21:43)
[2018-11-13] MEDS: Ondansetron INJ* 2 MG/ML VIAL IV SCH ×6 (02:02→21:47)
[2018-11-13] MEDS ORDERED: Metoclopramide IV* 5 MG/ML 2 ML VIAL IV PRN (02:52)
[2018-11-13] MEDS ORDERED: Phytonadione Oral Solution* 5 MG/25 ML UDC PO ONE (03:00)
[2018-11-13] MEDS: Morphine INJ* 2 MG/ML 1 ML SYRINGE (TWO MG - NEW SYRINGE VERSION) IV PRN ×6 (03:13→21:39)
[2018-11-13] MEDS ORDERED: Levothyroxine TAB* 175 MCG TAB PO SCH (06:00)
[2018-11-13] MEDS: ZOSYN 3.375 GM Q8H per EXTENDED INFUSION IVPB SCH ×6 (06:00→21:48)
[2018-11-13 08:32] LABS: ABS Basophils 0.1 10^3/ul (0-0.2); ABS Eosinophils 0 10^3/ul (0-0.6); ABS Lymphocytes 1.1 10^3/ul (1.0-4.8); ABS Monocytes 1.3 10^3/ul (0-0.8); ABS Neutrophils 10.7 10^3/ul (1.5-7.7); ABS Nucleated RBC 0 10^3/ul; Eosinophil % 0.1 %; Hematocrit 34 % (33-41); Hemoglobin 11.6 g/dL (12.0-16.0); Lymphocyte % 8.7 %; Mean Corpuscular HGB Conc 34 g/dL (31-36); Mean Corpuscular Hemoglobin 31 pg (27-31); Mean Corpuscular Volume 92 fL (80-97); Mean Platelet Volume 7.8 fL (7.4-10.4); Nucleated Red Blood Cells % 0; Platelet Count 366 10^3/uL (150-450); Red Blood Count 3.73 10^6 /uL (3.70-4.87); Red Cell Distribution Width 15 % (10.5-15); White Blood Count 13.2 10^3/uL (3.5-10.8)
[2018-11-13 08:45] LABS: INR 1.36 (0.82-1.09)
[2018-11-13] MEDS ORDERED: Atorvastatin* 40 MG TAB PO SCH (09:00)
[2018-11-13] MEDS ORDERED: Spironolactone TAB* 25 MG PO SCH (09:00)
[2018-11-13] MEDS ORDERED: Losartan TAB* 25 MG PO SCH (09:00)
[2018-11-13] MEDS ORDERED: amLODIPine TAB* 5 MG PO SCH (09:00)
[2018-11-13] MEDS ORDERED: Midazolam* 1 MG/ML 2 ML VIAL (2 MG) ONE ×2 (11:49)
[2018-11-13] MEDS ORDERED: fentaNYL* 50 MCG/ML 2 ML VIAL (100 MCG VIAL) ONE (11:50)
--- NOTE | 2018-11-13 12:56 | HP ---
H&P (Free Text) History and Physical: UPDATE TO H&P This is a 63 yo F who is s/p lap omental patch repair of a perforated gastric ulcer on 10/30/18. She progressed well and was studied post op with no leak identified and her diet was advanced to liquids uneventfully. The etiology is thought to be NSAID induced as she has been on ASA. She was seen at the [facility] office yesterday due to fever that started on 11/10. She was sent for CBC and this was elevated. She presented to the ED last pm and was noted to have fever, pain, and WBC elevation. CT scan was done demonstrating a collection adjacent to the bowel wall without evidence for leak. She was started on IV antibiotics and admitted to [facility]. Upon evaluation this AM she was reporting moderate abdominal pain and nausea. Pm/F/SH: see H&P from 10/30/18 ROS: Const: fever, chills. Class 3 obesity. CVS: no CP, SOB, angina;+HTN Resp: no cough, wheeze GI: as above : no dysuria, hematuria Endo: Lise's; hyperlipidemia Heme: no bleeding/bruising; no DVT M/S: osteoarthritis Neuro: no CVA or szr do PE: Uegg=836.8 VSS Gen: obese; mild discomfort Lungs: CTA B Heart: reg s1s2 Abd: healed scars; obese; soft; tender in RUQ/epigastrium; no diffuse peritonitis. Ext: warm; no c/c/e Laboratory Results - last 24 hr 11/12/18 11/12/18 11/12/18 21:05 21:05 21:05 WBC 15.2 H RBC 4.09 Hgb 12.5 Hct 37 MCV 92 MCH 31 MCHC 33 RDW 15 Plt Count 407 MPV 8.0 Neut % (Auto) 84.4 Lymph % (Auto) 7.4 [place] % (Auto) 7.7 Eos % (Auto) 0.1 Baso % (Auto) 0.4 Absolute Neuts (auto) 12.9 H Absolute Lymphs (auto) 1.1 Absolute Monos (auto) 1.2 H Absolute Eos (auto) 0 Absolute Basos (auto) 0.1 Absolute Nucleated RBC 0 Nucleated RBC % 0.1 INR (Anticoag Therapy) 1.41 H APTT 30.8 Sodium 131 L Potassium 3.9 Chloride 97 L Carbon Dioxide 23 Anion Gap 11 BUN 16 Creatinine 0.69 Est GFR ( Amer) 103.3 Est GFR (Non-Af Amer) 85.4 BUN/Creatinine Ratio 23.2 H Glucose 128 H Lactic Acid Calcium 9.9 Total Bilirubin 0.60 AST 14 ALT 21 Alkaline Phosphatase 30 L Troponin I 0.01 C-Reactive Protein 255.06 H Total Protein 7.9 Albumin 3.8 Globulin 4.1 H Albumin/Globulin Ratio 0.9 L Lipase < 10 L Urine Color Urine Appearance Urine pH Ur Specific [place] Urine Protein Urine Ketones Urine Blood Urine Nitrate Urine Bilirubin Urine Urobilinogen Ur Leukocyte Esterase Urine WBC (Auto) Urine RBC (Auto) Ur Squamous Epith Cells Urine Bacteria Urine Glucose 11/12/18 11/13/18 11/13/18 21:05 01:17 08:07 WBC 13.2 H RBC 3.73 Hgb 11.6 L Hct 34 MCV 92 MCH 31 MCHC 34 RDW 15 Plt Count 366 MPV 7.8 Neut % (Auto) 81.1 Lymph % (Auto) 8.7 [place] % (Auto) 9.7 Eos % (Auto) 0.1 Baso % (Auto) 0.4 Absolute Neuts (auto) 10.7 H Absolute Lymphs (auto) 1.1 Absolute Monos (auto) 1.3 H Absolute Eos (auto) 0 Absolute Basos (auto) 0.1 Absolute Nucleated RBC 0 Nucleated RBC % 0 INR (Anticoag Therapy) APTT Sodium Potassium Chloride Carbon Dioxide Anion Gap BUN Creatinine Est GFR ( Amer) Est GFR (Non-Af Amer) BUN/Creatinine Ratio Glucose Lactic Acid 0.6 Calcium Total Bilirubin AST ALT Alkaline Phosphatase Troponin I C-Reactive Protein Total Protein Albumin Globulin Albumin/Globulin Ratio Lipase Urine Color Yellow Urine Appearance Clear Urine pH 5.0 Ur Specific [place] > 1.060 H Urine Protein Negative Urine Ketones Trace A Urine Blood 1+ A Urine Nitrate Negative Urine Bilirubin Negative Urine Urobilinogen Negative Ur Leukocyte Esterase Negative Urine WBC (Auto) Absent Urine RBC (Auto) 1+(3-5/hpf) A Ur Squamous Epith Cells Present A Urine Bacteria Absent Urine Glucose Negative 11/13/18 08:07 WBC RBC Hgb Hct MCV MCH MCHC RDW Plt Count MPV Neut % (Auto) Lymph % (Auto) [place] % (Auto) Eos % (Auto) Baso % (Auto) Absolute Neuts (auto) Absolute Lymphs (auto) Absolute Monos (auto) Absolute Eos (auto) Absolute Basos (auto) Absolute Nucleated RBC Nucleated RBC % INR (Anticoag Therapy) 1.36 H APTT Sodium Potassium Chloride Carbon Dioxide Anion Gap BUN Creatinine Est GFR ( Amer) Est GFR (Non-Af Amer) BUN/Creatinine Ratio Glucose Lactic Acid Calcium Total Bilirubin AST ALT Alkaline Phosphatase Troponin I C-Reactive Protein Total Protein Albumin Globulin Albumin/Globulin Ratio Lipase Urine Color Urine Appearance Urine pH Ur Specific [place] Urine Protein Urine Ketones Urine Blood Urine Nitrate Urine Bilirubin Urine Urobilinogen Ur Leukocyte Esterase Urine WBC (Auto) Urine RBC (Auto) Ur Squamous Epith Cells Urine Bacteria Urine Glucose Assessment: Intraabdominal abscess, POD#13 s/p lap omental patch repair of perforated gastric ulcer. Plan/Recommendation: Non operative management with catheter drainage would be first and best option at this time: keep NPO, IV abx, drainage of abscess with IR. If she does not improve or if drainage unsuccessful, then a surgical intervention may be required. Discussed with patient and . All questions answered. She agrees.
[2018-11-13] MEDS ORDERED: Phenol 1.4% Spray* 177 ML BTL MT PRN (14:57)
[2018-11-13] MEDS ORDERED: Lidocaine 2% JELLY* 6 ML JELLY TOPICAL ONE (15:00)
--- NOTE | 2018-11-13 16:46 | CONS ---
[facility] MEDICINE CONSULTATION REPORT: DATE OF CONSULT: 11/13/18 PROVIDER: Cierra Solis NP. ATTENDING PHYSICIAN: Dr. Daugherty.* CONSULTING PHYSICIAN: Dr. Jose Eduardo George (dictated by Cierra Solis NP). REASON FOR CONSULT: Co-management of chronic medical conditions. HISTORY OF PRESENT ILLNESS: Ms. Khanna is a 63-year-old female with a past medical history significant for hypertension, hypothyroid, hyperlipidemia, who initially presented to [facility] on 10/30/18 with upper epigastric pain, leukocytosis , and was found to have a perforated gastric ulcer. She underwent laparoscopic omental patch repair on 10/30/18 and progressed well, was able to tolerated meals. She was discharged from the hospital and followed up with Surgery as an outpatient on 11/09/18 with no complaints at that time. The patient reports that on 11/10/18 she started with fevers and presented to the emergency room on 11/12/18, was found to have an elevated white count. She had a CT of the abdomen and pelvis that showed a collection adjacent to the bowel wall, but no evidence of leak, so she was admitted for abdominal abscess by Surgery. For complete details, please see dictated H and P by Dr. Chaney. The patient reports that she had fevers. No unintended weight loss. She denies any chest pain or edema, cough, hemoptysis or shortness of breath. She does report nausea and vomiting and upper abdominal pain. Denies any gross hematuria, dysuria, focal weakness, or sensory loss. Denies any visual complaints, dysphagia, arthralgias, myalgias, rashes, lesions, or open sores. Denies any psychosis or anxiety. Due to the findings of abscess, the patient was admitted by Surgery and we were asked to consult to co-manage her chronic medical conditions of hypothyroid and hypertension. PAST MEDICAL HISTORY: Significant for: 1. Hypertension. 2. Lise's thyroiditis, status post thyroidectomy. 3. Hyperlipidemia. PAST SURGICAL HISTORY: 1. Left ankle repair. 2. Cholecystectomy. 3. Tubal ligation. 4. Corneal transplant bilaterally. 5. Tonsillectomy. HOME MEDICATIONS: Include: 1. Levothyroxine 175 mcg p.o. daily. 2. Atorvastatin 40 mg p.o. daily. 3. Amlodipine 2.5 mg p.o. daily. 4. Spironolactone 12.5 mg p.o. daily. 5. Losartan 50 mg p.o. daily. 6. Timolol eye drops 0.5% daily. 7. Omeprazole 40 mg p.o. daily. ALLERGIES: MEPERIDINE, PINEAPPLE, NAPROXEN, HYDROCHLOROTHIAZIDE. FAMILY HISTORY: Father at the age of 55 from an [place]. No reported history of diabetes or cancer in the family. SOCIAL HISTORY: The patient reports that she quit smoking approximately 30 years ago. Prior to that, she was an occasional social smoker. Denies any alcohol or illicit drug use. She is retired. She is . She lives with her . Surrogate decision maker in the event she is unable to make her own decisions is her . She is a full code. REVIEW OF SYSTEMS: All pertinent positives are mentioned in the HPI. All others were negative. A 14-point review of systems was completed. PHYSICAL EXAM: General: At this time, Ms. Khanna is a 63-year-old female. She is resting in her bed. She does not appear to be in any acute distress. She is alert and oriented x3. HEENT: Head is atraumatic, normocephalic. Eyes : EOMs are intact. Sclerae anicteric and not pale. Oral mucosa appeared to be moist. Neck is supple. Lungs are clear to auscultation bilaterally. No wheezes, rales, or rhonchi. Cardiac: S1, S2. Regular rate and rhythm. No murmurs, rubs, or gallops. Abdomen is obese, soft. Bowel sounds are active x4. She does have a drain intact to her upper abdomen that is draining light brown drainage. Musculoskeletal: She is able to move all 4 extremities. There is no clubbing or cyanosis. No edema. Skin is intact. Neurologic: She is awake, alert, oriented x3. Speech is clear. Thought process is intact. There are no gross focal deficits. Psych: She is alert. She is calm and cooperative. DIAGNOSTIC STUDIES/LAB DATA: WBCs on 11/13/18 were 13.2, RBCs were 2.73, hemoglobin 11.6, hematocrit was 34, platelet count was 366. INR was 1.36. On 11/12/18 chloride was 97, carbon dioxide was 23, anion gap was 11, BUN was 16, creatinine 0.69, glucose was 128, lactic acid was 0.6, calcium 9.9. T bili was 0.60, ASTs were 14, ALTs were 21, alkaline phosphatase was 30. C-reactive protein was 255.06. Troponin was 0.01. Lipase was less than 10. Urine was yellow, clear, pH was 5.0, specific gravity greater than 1.060, urine protein was negative, urine ketones were trace, blood was 1+, nitrites were negative, bilirubin was negative, urobilinogen was negative, leukocyte esterase was negative, urine wbc's were present, rbc's were 1+, squamous epithelial cells were present, urine bacteria was absent, urine glucose was negative. She had an upper series on 11/13/18. No appreciable extravasation of contrast into the fluid collection identified on CT. She had a CT of the abdomen and pelvis on 11/12/18, radiologist's impression: A 3.8 x 5.7 cm x 6.5 cm abscess adjacent to the anterior aspect of the gastric antrum, which has developed since prior CT on 10/30/18. A small amount of free fluid in the upper abdomen, which has significantly improved compared to prior CT on 10/30/18. Thickening of the wall of the antrum and stomach, which may be inflammatory and postsurgical in nature. She had an electrocardiogram on 11/12/18, which showed sinus rhythm at a rate of 83. No EKG ST changes. IMPRESSION AND PLAN: Ms. Khanna is a 63-year-old female with a past medical history significant for hypertension, hypothyroid, hyperlipidemia, who presented to [facility] with abdominal pain, found to have an abscess. She was admitted under the care of Surgery and we were asked to consult due to her chronic medical conditions to help co-manage the patient. Our recommendations are as follows: 1. Intraabdominal abscess, status post omental patch repair. Management per Surgery. Continue with IV Zosyn as per Surgery. Cultures are currently pending and we would recommend antibiotic changes based on culture sensitivities if needed. 2. Hypertension. At this time, I am going to hold her medications as the patient has an infection and will be n.p.o. We can give p.r.n. hydralazine 5 mg as needed for systolic blood pressure greater than 180. 3. Hyperlipidemia. We will hold her atorvastatin at this time and resume that when she is able to take p.o. 4. Hypothyroidism. I will convert her levothyroxine to IV and continue it at 87.5 mcg daily IV. 5. Gastric ulcer. I would continue on pantoprazole 40 mg IV b.i.d. as ordered by Surgery. 6. Diet: She will be n.p.o. Further recommendations per Surgery for nutritional supplement. 7. DVT prophylaxis: I will place her on SCDs. 8. Code status: She is a full code. TIME SPENT: Time spent on this consultation was 45 minutes, greater than half that time was spent at the bedside reviewing events leading thus far to her hospitalization, performing my physical exam, and implementing my plan of care. I have discussed with my attending, Dr. Jose Eduardo George; he is in agreement with my plan. CIERRA SOLIS, CHILD WELFARE WORKER [id number]/CPS #: [id number] TANYA
[2018-11-13] MEDS: Pantoprazole IV* 40 MG IV SCH (21:46)
[2018-11-13] MEDS: PTO:Loteprednol 0.5% OPH.SUSP(NF) 5 ML BTL BOTH EYES SCH (21:50)
[2018-11-14] MEDS: Morphine INJ* 2 MG/ML 1 ML SYRINGE (TWO MG - NEW SYRINGE VERSION) IV PRN ×5 (00:14→22:06)
--- NOTE | 2018-11-14 02:09 | PN ---
Hospitalist Progress Note Date of Service: 11/14/18 Called overnight with + blood cx Gram + Cocci- strep vs staph, MRSA screen was neg, and while this doesnt guaruntee non neg MRSA bacteremia, unlikely and pt clinically well, currently covered on Zosyn. Continue zosyn for now while cultures speciate.
[2018-11-14] MEDS: Ondansetron INJ* 2 MG/ML VIAL IV SCH ×2 (02:27→06:40)
[2018-11-14] MEDS: NS 0.9% 1000 ML** 1,000 ML IV SCH ×3 (05:12→22:02)
[2018-11-14] MEDS: Levothyroxine INJ* 100 MCG/5 ML VIAL IV SCH (06:40)
[2018-11-14] MEDS: ZOSYN 3.375 GM Q8H per EXTENDED INFUSION IVPB SCH ×6 (06:41→22:02)
--- NOTE | 2018-11-14 08:53 | PN ---
Progress Note - Progress Note Date of Service: 11/14/18 SOAP: Subjective: Less abdominal pain. No N/V. Wants NGT out MARCELLO. Objective: Vital Signs Temp 100.2 F 11/14/18 04:14 Pulse 78 11/14/18 04:14 Resp 18 11/14/18 08:49 BP 120/54 11/14/18 04:14 Pulse Ox 93 11/14/18 04:14 Gen: NAD NGT in place with bilious drainage. Abd: drain intact with purulent drainage; obese; soft; tender at drain site. Intake & Output 11/13/18 11/14/18 11/14/18 18:59 06:59 18:59 Intake Total 1354 0 Output Total 560 1010 Balance 794 -1010 Intake: IV Fluids 847 NS (0.9%) 847 IVPB 107 ABX - ZOSYN 107 Oral 360 0 NG Tube Irrigate Amount 30 Pigtail Drain 10 Output: NG Tube Drainage Amount 550 450 Pigtail Drain 10 60 Urine 0 500 Other: Estimated Void Small # Bowel Movements 4 0 Estimated Stool Amount Small # Voids 3 Laboratory Results - last 24 hr 11/13/18 08:07 INR (Anticoag Therapy) 1.36 H Assessment: Abscess/contained leak s/p lap omental patch of perf on 10/30. Improved after drainage. Plan: Cont NGT. Start PPN. Cont abx and drain. Reimaging in 1-2 days. Labs in am.
[2018-11-14] MEDS: Pantoprazole IV* 40 MG IV SCH ×2 (09:55→22:04)
[2018-11-14] MEDS: TIMOLOL XE 0.5% BOTH EYES SCH (09:55)
[2018-11-14] MEDS ORDERED: Ondansetron INJ* 2 MG/ML VIAL IV PRN (10:00)
[2018-11-14 14:14] LABS: ABS Basophils 0 10^3/ul (0-0.2); ABS Eosinophils 0.2 10^3/ul (0-0.6); ABS Monocytes 0.6 10^3/ul (0-0.8); ABS Neutrophils 4.1 10^3/ul (1.5-7.7); ABS Nucleated RBC 0 10^3/ul; Eosinophil % 3.1 %; Hematocrit 33 % (33-41); Lymphocyte % 17.5 %; Mean Corpuscular HGB Conc 34 g/dL (31-36); Mean Corpuscular Hemoglobin 31 pg (27-31); Mean Corpuscular Volume 93 fL (80-97); Mean Platelet Volume 7.6 fL (7.4-10.4); Nucleated Red Blood Cells % 0.1; Platelet Count 298 10^3/uL (150-450); Red Blood Count 3.55 10^6 /uL (3.70-4.87); Red Cell Distribution Width 15 % (10.5-15)
[2018-11-14 14:33] LABS: Albumin 3.2 g/dL (3.2-5.2); Albumin/Globulin Ratio 0.9 (1-3); BUN/Creatinine Ratio 14.1 (8-20); Calcium 9.1 mg/dL (8.6-10.3); EGFR Non-African American 82.6 (>60); Globulin 3.4 g/dL (2-4); Phosphorus 2.8 mg/dL (2.5-5.0); Potassium 3.7 mmol/L (3.5-5.0); Total Bilirubin 0.4 mg/dL (0.2-1.0); Total Protein 6.6 g/dL (6.4-8.9)
--- NOTE | 2018-11-14 14:42 | PN ---
Subjective Date of Service: 11/14/18 Interval History: Patient has some mild pain area of percutaneous tube. Has been passing diarrhea and flatus. Wonders about when she can eat, wonders about what PPN is , vs TPN. Has questions about PICC tomorrow. Family History: Unchanged from Admission Social History: Unchanged from Admission Past Medical History: Unchanged from Admission Objective Active Medications: Sodium Chloride (Ns 0.9% 1000 Ml) 1,000 mls @ 125 mls/hr IV PER RATE [facility] Last Admin: 11/14/18 13:18 Dose: 125 mls/hr Piperacillin Sod/Tazobactam (Sod 3.375 gm/ Sodium Chloride) 100 mls @ 25 mls/ hr IVPB Q8H [facility] Last Admin: 11/14/18 13:59 Dose: 25 mls/hr Dextrose 1,000 ml/ Amino Acids 850 ml/ Sterile Water 150 ml/Fat Emulsion Intravenous 500 ml/ Sodium Chloride 100 meq/Potassium Chloride 50 meq/Potassium Phosphate 15 mmole/Calcium Gluconate 15 meq/Magnesium Sulfate 10 meq/ Multivitamins 10 ml/ Trace Metals 1 ml/ Nutrition ( Parenteral) 2,600.721 mls @ 108.422 mls/hr IV 1700 [facility] Levothyroxine Sodium (Synthroid Inj*) 87.5 mcg IV 0600 [facility] Last Admin: 11/14/18 06:40 Dose: 87.5 mcg Loteprednol Etabonate (Lotemax 0.5% Oph.Susp (Nf)) 1 drop BOTH EYES BEDTIME [facility] Last Admin: 11/13/18 21:50 Dose: 1 drop Metoclopramide HCl (Reglan Iv*) 5 mg IV Q6H PRN PRN Reason: NAUSEA Last Admin: 11/13/18 03:14 Dose: 5 mg Morphine Sulfate (Morphine Inj (Syringe))*) 2 mg IV Q1H PRN PRN Reason: PAIN Last Admin: 11/14/18 11:30 Dose: 2 mg Ondansetron HCl (Zofran Inj*) 4 mg IV Q4H PRN PRN Reason: NAUSEA Pantoprazole Sodium (Protonix Iv*) 40 mg IV BID [facility] Last Admin: 11/14/18 09:55 Dose: 40 mg Pharmacy Consult (Zosyn Per Pharmacy*) 1 note FOLLOW UP .ZOSYN PER PHARMACY [facility] Phenol/Menthol (Chloroseptic Throat [place]*) 1 spray MT Q3H PRN PRN Reason: SORE THROAT Timolol Maleate (Timoptic-Xe 0.5% (Ophth)(Nf)) 1 drop BOTH EYES QAM [facility] Last Admin: 11/14/18 09:55 Dose: 1 drop Vital Signs - 8 hr 11/14/18 11/14/18 11/14/18 07:38 08:00 08:49 Temperature 36.8 C Pulse Rate 79 Respiratory 16 18 18 Rate Blood Pressure 122/58 (mmHg) O2 Sat by Pulse 92 Oximetry 11/14/18 11/14/18 11/14/18 11:28 11:30 13:25 Temperature 36.9 C Pulse Rate 77 Respiratory 16 18 18 Rate Blood Pressure 107/69 (mmHg) O2 Sat by Pulse 94 Oximetry Oxygen Devices in Use Now: None Appearance: alert, no distress Eyes: No Scleral Icterus Ears/Nose/Mouth/Throat: Clear Oropharnyx Neck: No Thyroid Enlargement, Masses Respiratory: Clear to Auscultation Cardiovascular: NL Sounds; No Murmurs; No JVD Abdominal: NL Sounds; No Tenderness; No Distention, No Hepatosplenomegaly, - - mild tenderness near tube site RUQ Neurological: Alert and Oriented x 3 Lines/Tubes/Other Access: Clean, Dry and Intact Naso-enteral Tube, Clean, Dry and Intact Peripheral IV, Clean, Dry and Intact Other Access - perc drain tube Nutrition: - - IVs only Result Diagrams: 11/14/18 14:05 11/14/18 14:05 Additional Lab and Data: TPN panel pending Microbiology and Other Data: Microbiology 11/13/18 12:31 Peritoneal Fluid Gram Stain - Final 11/13/18 12:31 Peritoneal Fluid Skin and Soft Tissue MRSA/MSSA (PCR - Final Mrsa Negative S.aureus Negative 11/13/18 12:31 Peritoneal Fluid Body Fluid Culture - Preliminary Klebsiella Aerogenes Streptococcus Anginosus 11/13/18 01:49 Blood Venous Aerobic Blood Culture - Preliminary 11/13/18 01:49 Blood Venous Anaerobic Blood Culture - Preliminary No Growth Day 1 Assess/Plan/Problems-Billing Assessment: 63 year old woman with recent perforated gastric ulcer, s/p patch, here w/ abscess/fluid collection near repair - Patient Problems (1) Abscess, intra-abdominal, postoperative Current Visit: Yes Status: Acute Priority: High Code(s): T81.49XA - INFECTION FOLLOWING A PROCEDURE, OTHER SURGICAL SITE, INIT SNOMED Code(s): 4213809 Comment: -cultures growing klebsiella, strep -Will follow sensitivities, narrow antibiotic coverage tomorrow. -Plan for PICC, TPN tomorrow, managed by surgery. (2) Hypothyroidism Current Visit: Yes Status: Acute Priority: Medium Code(s): E03.9 - HYPOTHYROIDISM, UNSPECIFIED SNOMED Code(s): 64831829 Comment: -Supplementing l-thyroxine by IV (3) Hypertension Current Visit: Yes Status: Acute Priority: Medium Code(s): I10 - ESSENTIAL (PRIMARY) HYPERTENSION SNOMED Code(s): 54794001 Comment: -Doing well w/o medications -Continue to monitor (4) DVT prophylaxis Current Visit: Yes Status: Acute Priority: Medium Code(s): FNY1531 - SNOMED Code(s): 694886585 Comment: -SCDs Status and Disposition: inpatient
[2018-11-14] MEDS: TPN* 24 HR with D10W 1000 ML BAG* 1,000 ML, Amino Acid Infusion 10%* 850 ML, Sterile Wa... IV SCH ×12 (16:37)
[2018-11-14] MEDS: PTO:Loteprednol 0.5% OPH.SUSP(NF) 5 ML BTL BOTH EYES SCH (22:03)
[2018-11-15] MEDS: Morphine INJ* 2 MG/ML 1 ML SYRINGE (TWO MG - NEW SYRINGE VERSION) IV PRN ×5 (00:50→22:29)
[2018-11-15] MEDS: Levothyroxine INJ* 100 MCG/5 ML VIAL IV SCH (05:31)
[2018-11-15] MEDS: ZOSYN 3.375 GM Q8H per EXTENDED INFUSION IVPB SCH ×6 (05:38→22:41)
[2018-11-15] MEDS: NS 0.9% 1000 ML** 1,000 ML IV SCH ×2 (05:40→13:59)
--- NOTE | 2018-11-15 08:15 | PN ---
Progress Note - Progress Note Date of Service: 11/15/18 Note: Day #2 S/P drainage intra-abd abscess Afeb, VS noted Voiding well NG moderate Pigtail small drng No pain issues Hungry Abd benign Drainage serous C&S noted, sens pending Cont NGT and IV abx Await final sens. Dr Mora to eval. Re-check UGI tmrw?
[2018-11-15] MEDS: TIMOLOL XE 0.5% BOTH EYES SCH (08:44)
[2018-11-15] MEDS: Pantoprazole IV* 40 MG IV SCH ×2 (08:44→22:36)
[2018-11-15 11:50] LABS: Albumin 2.9 g/dL (3.2-5.2); Albumin/Globulin Ratio 0.9 (1-3); BUN/Creatinine Ratio 18.5 (8-20); EGFR African American 137.1 (>60); EGFR Non-African American 113.3 (>60); Globulin 3.4 g/dL (2-4); Potassium 3.5 mmol/L (3.5-5.0); Total Bilirubin 0.3 mg/dL (0.2-1.0); Total Protein 6.3 g/dL (6.4-8.9)
[2018-11-15] MEDS ORDERED: D5W 1/2 NS KCl 20 Meq 1000 ML* 1,000 ML IV SCH (16:50)
[2018-11-15] MEDS: TPN* 24 HR with D10W 1000 ML BAG* 1,000 ML, Amino Acid Infusion 10%* 850 ML, Sterile Wa... IV SCH ×12 (16:55)
[2018-11-15] MEDS ORDERED: TPN* 24 HR with Dextrose 50% Water* 500 ML, Amino Acid Infusion 10%* 850 ML, Sterile Wa... CENTR SCH ×12 (17:00)
--- NOTE | 2018-11-15 18:50 | PN ---
Subjective Date of Service: 11/15/18 Interval History: Patient has no new complaints. Still having a bit of diarrhea. She has no vomiting, tolerating NG tube. Denies significant abdominal pain. Family History: Unchanged from Admission Social History: Unchanged from Admission Past Medical History: Unchanged from Admission Objective Active Medications: Sodium Chloride (Ns 0.9% 1000 Ml) 1,000 mls @ 125 mls/hr IV PER RATE [facility] Last Admin: 11/15/18 13:59 Dose: 125 mls/hr Piperacillin Sod/Tazobactam (Sod 3.375 gm/ Sodium Chloride) 100 mls @ 25 mls/ hr IVPB Q8H [facility] Last Admin: 11/15/18 13:56 Dose: 25 mls/hr Potassium Chloride/Dextrose (D5w 1/2 Ns Kcl 20 Meq 1000 Ml*) 1,000 mls @ 75 mls /hr IV PER RATE [facility] Levothyroxine Sodium (Synthroid Inj*) 87.5 mcg IV 0600 [facility] Last Admin: 11/15/18 05:31 Dose: 87.5 mcg Loteprednol Etabonate (Lotemax 0.5% Oph.Susp (Nf)) 1 drop BOTH EYES BEDTIME [facility] Last Admin: 11/14/18 22:03 Dose: 1 drop Metoclopramide HCl (Reglan Iv*) 5 mg IV Q6H PRN PRN Reason: NAUSEA Last Admin: 11/13/18 03:14 Dose: 5 mg Morphine Sulfate (Morphine Inj (Syringe))*) 2 mg IV Q1H PRN PRN Reason: PAIN Last Admin: 11/15/18 13:01 Dose: 2 mg Ondansetron HCl (Zofran Inj*) 4 mg IV Q4H PRN PRN Reason: NAUSEA Pantoprazole Sodium (Protonix Iv*) 40 mg IV BID [facility] Last Admin: 11/15/18 08:44 Dose: 40 mg Pharmacy Consult (Zosyn Per Pharmacy*) 1 note FOLLOW UP .ZOSYN PER PHARMACY [facility] Phenol/Menthol (Chloroseptic Throat [place]*) 1 spray MT Q3H PRN PRN Reason: SORE THROAT Timolol Maleate (Timoptic-Xe 0.5% (Ophth)(Nf)) 1 drop BOTH EYES QAM [facility] Last Admin: 11/15/18 08:44 Dose: 1 drop Vital Signs - 8 hr 11/15/18 11/15/18 11/15/18 13:01 14:09 15:12 Temperature 36.5 C Pulse Rate 57 Respiratory 18 16 16 Rate Blood Pressure 103/51 (mmHg) O2 Sat by Pulse 96 Oximetry Oxygen Devices in Use Now: None Appearance: alert, no distress Eyes: No Scleral Icterus Neck: NL Appearance and Movements; NL JVP Respiratory: Symmetrical Chest Expansion and Respiratory Effort Cardiovascular: NL Sounds; No Murmurs; No JVD, RRR Abdominal: NL Sounds; No Tenderness; No Distention, - - drainage tube RUQ Extremities: No Edema Neurological: Alert and Oriented x 3 Lines/Tubes/Other Access: Clean, Dry and Intact Naso-enteral Tube, Clean, Dry and Intact Peripheral IV Nutrition: - - NPO Result Diagrams: 11/14/18 14:05 11/15/18 11:05 Additional Lab and Data: Laboratory Tests 11/15/18 11:05 Phosphorus 2.0 L Alkaline Phosphatase 22 L Total Protein 6.3 L Albumin 2.9 L Albumin/Globulin Ratio 0.9 L Triglycerides 124 Cholesterol 131 Microbiology and Other Data: Microbiology Microbiology 11/13/18 12:31 Peritoneal Fluid Gram Stain - Final 11/13/18 12:31 Peritoneal Fluid Skin and Soft Tissue MRSA/MSSA (PCR - Final Mrsa Negative S.aureus Negative 11/13/18 12:31 Peritoneal Fluid Body Fluid Culture - Preliminary Klebsiella Aerogenes Streptococcus Anginosus 11/13/18 01:49 Blood Venous Aerobic Blood Culture - Preliminary 11/13/18 01:49 Blood Venous Anaerobic Blood Culture - Preliminary Streptococcus Anginosus No Growth Day 2 Assess/Plan/Problems-Billing Assessment: 63 year old woman with recent perforated gastric ulcer, s/p patch, here w/ abscess/fluid collection near repair - Patient Problems (1) Abscess, intra-abdominal, postoperative Current Visit: Yes Status: Acute Priority: High Code(s): T81.49XA - INFECTION FOLLOWING A PROCEDURE, OTHER SURGICAL SITE, INIT SNOMED Code(s): 3759494 Comment: -peritoneal cultures growing klebsiella, strep -blood cultures growing streptoccocus -Holding off on PICC due to bacteremia -restart PPN tomorrow, managed by surgery. -Will discuss with Dr. Mora tomorrow (2) Hypothyroidism Current Visit: Yes Status: Acute Priority: Medium Code(s): E03.9 - HYPOTHYROIDISM, UNSPECIFIED SNOMED Code(s): 90606019 Comment: -Supplementing l-thyroxine by IV (3) Hypertension Current Visit: Yes Status: Acute Priority: Medium Code(s): I10 - ESSENTIAL (PRIMARY) HYPERTENSION SNOMED Code(s): 24435960 Comment: -Doing well w/o medications -Continue to monitor (4) DVT prophylaxis Current Visit: Yes Status: Acute Priority: Medium Code(s): UIB4200 - SNOMED Code(s): 393758360 Comment: -SCDs Status and Disposition: inpatient
[2018-11-15] MEDS: PTO:Loteprednol 0.5% OPH.SUSP(NF) 5 ML BTL BOTH EYES SCH (22:37)
[2018-11-16] MEDS: Morphine INJ* 2 MG/ML 1 ML SYRINGE (TWO MG - NEW SYRINGE VERSION) IV PRN ×3 (03:56→22:03)
[2018-11-16] MEDS: NS 0.9% 1000 ML** 1,000 ML IV SCH (06:35)
[2018-11-16] MEDS: ZOSYN 3.375 GM Q8H per EXTENDED INFUSION IVPB SCH ×6 (06:36→22:02)
[2018-11-16] MEDS: Levothyroxine INJ* 100 MCG/5 ML VIAL IV SCH (06:39)
[2018-11-16] MEDS ORDERED: NS 0.9% 1000 ML** 1,000 ML IV SCH (08:17)
--- NOTE | 2018-11-16 08:20 | PN ---
Progress Note - Progress Note Date of Service: 11/16/18 Note: Day #3 s/p abd drain Afeb, VS OK UO large NG moderate Pigtail almost nil. Min pain, no N/V Ambulating well Abd obese, soft, sore, no peritonitis Will get abd CT w/ oral contrast to eval for persistence of leak. Will lie prone after contrast to see if it drains.
[2018-11-16] MEDS: Pantoprazole IV* 40 MG IV SCH ×2 (08:21→20:38)
[2018-11-16] MEDS: TIMOLOL XE 0.5% BOTH EYES SCH (08:22)
--- NOTE | 2018-11-16 19:03 | PN ---
Subjective Date of Service: 11/16/18 Interval History: Patient feeling better. Has NG tube out, has some appetite. No real abdominal pain. No diarrhea. Family History: Unchanged from Admission Social History: Unchanged from Admission Past Medical History: Unchanged from Admission Objective Active Medications: Atorvastatin Calcium (Lipitor*) 40 mg PO 2100 [facility] Piperacillin Sod/Tazobactam (Sod 3.375 gm/ Sodium Chloride) 100 mls @ 25 mls/ hr IVPB Q8H [facility] Last Admin: 11/16/18 14:05 Dose: 25 mls/hr Sodium Chloride (Ns 0.9% 1000 Ml) 1,000 mls @ 75 mls/hr IV PER RATE [facility] Levothyroxine Sodium (Synthroid Tab*) 175 mcg PO 0600 [facility] Loteprednol Etabonate (Lotemax 0.5% Oph.Susp (Nf)) 1 drop BOTH EYES BEDTIME [facility] Last Admin: 11/15/18 22:37 Dose: 1 drop Metoclopramide HCl (Reglan Iv*) 5 mg IV Q6H PRN PRN Reason: NAUSEA Last Admin: 11/13/18 03:14 Dose: 5 mg Morphine Sulfate (Morphine Inj (Syringe))*) 2 mg IV Q1H PRN PRN Reason: PAIN Last Admin: 11/16/18 14:11 Dose: 2 mg Ondansetron HCl (Zofran Inj*) 4 mg IV Q4H PRN PRN Reason: NAUSEA Pantoprazole Sodium (Protonix Iv*) 40 mg IV BID [facility] Last Admin: 11/16/18 08:21 Dose: 40 mg Pharmacy Consult (Zosyn Per Pharmacy*) 1 note FOLLOW UP .ZOSYN PER PHARMACY [facility] Phenol/Menthol (Chloroseptic [facility]roat [facility]*) 1 spray MT Q3H PRN PRN Reason: SORE THROAT Timolol Maleate (Timoptic-Xe 0.5% (Ophth)(Nf)) 1 drop BOTH EYES QAM [facility] Last Admin: 11/16/18 08:22 Dose: 1 drop Vital Signs - 8 hr 11/16/18 11/16/18 11/16/18 11:26 14:11 15:20 Temperature 36.8 C Pulse Rate Respiratory 17 16 16 Rate Blood Pressure 142/76 (mmHg) O2 Sat by Pulse 96 Oximetry 11/16/18 11/16/18 15:45 15:46 Temperature 36.6 C 36.6 C Pulse Rate 58 58 Respiratory 16 16 Rate Blood Pressure 111/87 111/87 (mmHg) O2 Sat by Pulse 99 99 Oximetry Oxygen Devices in Use Now: None Appearance: alert, ambulatory Eyes: No Scleral Icterus Ears/Nose/Mouth/Throat: Clear Oropharnyx Respiratory: Symmetrical Chest Expansion and Respiratory Effort Cardiovascular: NL Sounds; No Murmurs; No JVD, RRR Abdominal: No Hepatosplenomegaly, - - soft, obese, tender RUQ, IR tube RUQ. +BS , no rigidity Extremities: No Edema Neurological: Alert and Oriented x 3 Lines/Tubes/Other Access: Clean, Dry and Intact Peripheral IV Nutrition: Taking PO's Result Diagrams: 11/14/18 14:05 11/15/18 11:05 Microbiology and Other Data: Microbiology 11/13/18 12:31 Peritoneal Fluid Gram Stain - Final 11/13/18 12:31 Peritoneal Fluid Skin and Soft Tissue MRSA/MSSA (PCR - Final Mrsa Negative S.aureus Negative 11/13/18 01:49 Blood Venous Anaerobic Blood Culture - Final Streptococcus Anginosus 11/13/18 12:31 Peritoneal Fluid Body Fluid Culture - Preliminary Klebsiella Aerogenes Streptococcus Anginosus Prevotella Denticola 11/13/18 01:49 Blood Venous Aerobic Blood Culture - Preliminary 11/13/18 01:49 Blood Venous No Growth Day 3 Diagnostic Imaging: CT today shows resolution abscess, no leak from stomach Assess/Plan/Problems-Billing Assessment: 63 year old woman with recent perforated gastric ulcer, s/p patch, here w/ abscess/fluid collection near repair site - Patient Problems (1) Abscess, intra-abdominal, postoperative Current Visit: Yes Status: Acute Priority: High Code(s): T81.49XA - INFECTION FOLLOWING A PROCEDURE, OTHER SURGICAL SITE, INIT SNOMED Code(s): 1595579 Comment: -peritoneal cultures growing klebsiella, strep -blood cultures growing streptoccocus -CT reviewed -Disussed w/ Dr. Alamo, he is advancing diet (2) Hypothyroidism Current Visit: Yes Status: Acute Priority: Medium Code(s): E03.9 - HYPOTHYROIDISM, UNSPECIFIED SNOMED Code(s): 33721507 Comment: -switched from IV to PO L-thyroxine (3) Hypertension Current Visit: Yes Status: Acute Priority: Medium Code(s): I10 - ESSENTIAL (PRIMARY) HYPERTENSION SNOMED Code(s): 86789327 Comment: -Doing well w/o medications -Continue to monitor (4) DVT prophylaxis Current Visit: Yes Status: Acute Priority: Medium Code(s): SNT1753 - SNOMED Code(s): 111777468 Comment: -SCDs Status and Disposition: inpatient, we are consulting, will follow
[2018-11-16] MEDS: Atorvastatin* 40 MG TAB PO SCH (20:38)
[2018-11-16] MEDS: PTO:Loteprednol 0.5% OPH.SUSP(NF) 5 ML BTL BOTH EYES SCH (20:39)
--- NOTE | 2018-11-16 21:27 | CONS ---
GASTROENTEROLOGY CONSULT: DATE OF CONSULT: 11/16/18 CONSULTING PHYSICIAN: Efrain Alamo MD. REASON FOR CONSULTATION: Peritoneal abscess in a woman admitted with a perforated duodenal ulcer 3 weeks ago for further review on concurrent care. HISTORY: This 63-year-old woman, who had a perforated duodenal ulcer repaired with an omental patch on 10/30/18, was doing well at home on omeprazole 40 mg when she developed a fever and some recurring abdominal pain in the upper abdomen. She came to the emergency room and her white count was elevated at 14.[address] scan showed a collection in the upper abdomen. A pigtail catheter was placed in that and NG drainage and antibiotics begun. She has had return of bowel sounds and has passed some flatus and today, her NG tube was able to be discontinued and CT with oral contrast done showing no leak. She was placed on some clear liquids. CT scan showed resolution of the abscess. Contrast remained within the stomach. She has had loose stools consistent with her prior experience with oral contrast. PAST MEDICAL HISTORY: 1. Morbid obesity. 2. Laparoscopic cholecystectomy, 1999 3. Hypercalcemia. 4. Hypothyroidism. MEDICATIONS: Home medication recently had been as listed before with the addition of omeprazole 40 mg once a day. In hospital medication - Zosyn 3.375 every 8 hours and pantoprazole 40 mg IV b.i.d. SOCIAL HISTORY: She is , retired. Her daughter, Maral visits her here in the hospital frequently. REVIEW OF SYSTEMS: Twelve systems reviewed and no changes over the last month. She has had no neurological symptoms. EXAM: Three days after admission her vitals are normal, afebrile, temp 97.9, blood pressure 111/87, O2 saturation 99%. She is sitting on the edge of the bed. She appears well. She is joking and happy with her progress. HEENT exam is unremarkable. Her lungs are clear. Heart sounds are regular. The abdomen has a slender drain coming out in the midline epigastrium. There is some serosanguineous material in the drain collection bag. The abdomen is morbidly obese. Bowel sounds are normal. Her abdomen is soft and nontender. Rectal deferred. Extremities are symmetric. LABS: White count down to 6.0, hemoglobin 11.0, MCV 93. Creatinine 0.54, BUN 10, albumin 2.9. Microbiology - No specimen thus far testing for H. pylori. Peritoneal fluid growing out Klebsiella aerogenes, Streptococcus anginosus, Prevotella denticola. MRSA surveillance was negative. Blood culture, anaerobic, grew streptococcus anginosus. IMPRESSION: She appears to be making appropriate progress after institution of antibiotics and drainage of the abscess. 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 pylori will not change based on this episode of infection. As before would treat with full dose PPI and likely do EGD in late December. [id number]/[facility] #: [id number] [facility]
[2018-11-17] MEDS: Levothyroxine TAB* 175 MCG TAB PO SCH (05:54)
[2018-11-17] MEDS: ZOSYN 3.375 GM Q8H per EXTENDED INFUSION IVPB SCH ×6 (05:55→22:55)
--- NOTE | 2018-11-17 08:13 | PN ---
Progress Note - Progress Note Date of Service: 11/17/18 Note: Day #4 s/p abscess drain Afeb, VS OK UO large Catherine po's No pain Ambulating well C/O swollen ankles Abd obese, soft non-tender Pigtail trace drainage Impr: Recovering well s/p abscess drain Cont iv abx, transition to oral 1-2 days TEDS to help leg edema Re-start diuretic per medicine Home 1-2 days, PPI per gastro
[2018-11-17] MEDS: Pantoprazole IV* 40 MG IV SCH ×4 (09:47→21:02)
[2018-11-17] MEDS: TIMOLOL XE 0.5% BOTH EYES SCH (09:47)
[2018-11-17 12:27] LABS: BUN/Creatinine Ratio 5.3 (8-20); Calcium 9.3 mg/dL (8.6-10.3); EGFR African American 128.8 (>60); EGFR Non-African American 106.4 (>60); Potassium 3.3 mmol/L (3.5-5.0)
--- NOTE | 2018-11-17 12:32 | PN ---
Subjective Date of Service: 11/17/18 Interval History: HOSPITALIST PROGRESS NOTE Patient seen and examined at bedside. Care reviewed and d/w Vicente Gramajo RN. She feels well today. Tolerating diet advancement. Concerned her BP is trending up and she has some hand swelling. Family History: Unchanged from Admission Social History: Unchanged from Admission Past Medical History: Unchanged from Admission Objective Active Medications: Atorvastatin Calcium (Lipitor*) 40 mg PO 2100 [facility] Last Admin: 11/16/18 20:38 Dose: 40 mg Piperacillin Sod/Tazobactam (Sod 3.375 gm/ Sodium Chloride) 100 mls @ 25 mls/ hr IVPB Q8H [facility] Last Admin: 11/17/18 05:55 Dose: 25 mls/hr Levothyroxine Sodium (Synthroid Tab*) 175 mcg PO 0600 [facility] Last Admin: 11/17/18 05:54 Dose: 175 mcg Loteprednol Etabonate (Lotemax 0.5% Oph.Susp (Nf)) 1 drop BOTH EYES BEDTIME [facility] Last Admin: 11/16/18 20:39 Dose: 1 drop Metoclopramide HCl (Reglan Iv*) 5 mg IV Q6H PRN PRN Reason: NAUSEA Last Admin: 11/13/18 03:14 Dose: 5 mg Morphine Sulfate (Morphine Inj (Syringe))*) 2 mg IV Q1H PRN PRN Reason: PAIN Last Admin: 11/16/18 22:03 Dose: 2 mg Ondansetron HCl (Zofran Inj*) 4 mg IV Q4H PRN PRN Reason: NAUSEA Pantoprazole Sodium (Protonix Iv*) 40 mg IV BID [facility] Last Admin: 11/17/18 11:17 Dose: 40 mg Pharmacy Consult (Zosyn Per Pharmacy*) 1 note FOLLOW UP .ZOSYN PER PHARMACY [facility] Phenol/Menthol (Chloroseptic Throat [place]*) 1 spray MT Q3H PRN PRN Reason: SORE THROAT Timolol Maleate (Timoptic-Xe 0.5% (Ophth)(Nf)) 1 drop BOTH EYES QAM [facility] Last Admin: 11/17/18 09:47 Dose: 1 drop Vital Signs - 8 hr 11/17/18 11/17/18 07:12 07:53 Temperature 98.0 F Pulse Rate 60 Respiratory 18 18 Rate Blood Pressure 146/67 (mmHg) O2 Sat by Pulse 96 Oximetry Oxygen Devices in Use Now: None Appearance: Pleasant morbid obese lady lying in bed in NAD. Eyes: No Scleral Icterus Ears/Nose/Mouth/Throat: Mucous Membranes Moist Neck: Trachea Midline Respiratory: Symmetrical Chest Expansion and Respiratory Effort, Clear to Auscultation Cardiovascular: RRR - Normal S1 and S2 Extremities: - - Hands are puffy Neurological: Alert and Oriented x 3, NL Muscle Strength and Tone Result Diagrams: 11/14/18 14:05 11/17/18 11:57 Microbiology and Other Data: Microbiology 11/13/18 12:31 Peritoneal Fluid Gram Stain - Final 11/13/18 12:31 Peritoneal Fluid Skin and Soft Tissue MRSA/MSSA (PCR - Final Mrsa Negative S.aureus Negative 11/13/18 01:49 Blood Venous Anaerobic Blood Culture - Final Streptococcus Anginosus 11/13/18 12:31 Peritoneal Fluid Body Fluid Culture - Preliminary Klebsiella Aerogenes Streptococcus Anginosus Prevotella Denticola 11/13/18 01:49 Blood Venous Aerobic Blood Culture - Preliminary 11/13/18 01:49 Blood Venous No Growth Day 3 Assess/Plan/Problems-Billing Assessment: Mrs Khanna is a 63 yo F with PMH of HTN, HLD, Lise's thyroiditis, perforated gastric ulcer s/p Rahul patch 10/30/18, who presented with fever and abdominal pain, found to have abscess/fluid collection near repair site s/p IR drainage. Hospitalist service consulted for management of chronic conditions. - Patient Problems (1) Abscess, intra-abdominal, postoperative Comment: - Peritoneal cultures growing polymicrobial davi, including Klebsiella , Strep, Prevotella. - Blood cultures grew streptoccocus. - Repeat blood cultures. - Check transthoracic echocardiogram. - Management as per surgery. - Continue Zosyn. (2) Hypothyroidism Comment: - Continue PO Levothyroxine. (3) Hypertension Comment: - Trending up and patient c/o feeling "puffy". - Check BMP and resume Aldactone/lower dose Losartan. (4) DVT prophylaxis Comment: - SCDs. Status and Disposition: Inpatient. Hospitalist service will continue to follow.
[2018-11-17] MEDS ORDERED: Losartan TAB* 25 MG PO SCH (13:00)
[2018-11-17] MEDS: Spironolactone TAB* 25 MG PO SCH (13:28)
[2018-11-17] MEDS: Atorvastatin* 40 MG TAB PO SCH (21:02)
[2018-11-17] MEDS: PTO:Loteprednol 0.5% OPH.SUSP(NF) 5 ML BTL BOTH EYES SCH (21:05)
[2018-11-18] MEDS: ZOSYN 3.375 GM Q8H per EXTENDED INFUSION IVPB SCH ×6 (05:46→22:20)
[2018-11-18] MEDS: Levothyroxine TAB* 175 MCG TAB PO SCH (05:46)
[2018-11-18 08:08] LABS: BUN/Creatinine Ratio 3.4 (8-20); Calcium 9.2 mg/dL (8.6-10.3); EGFR African American 126.2 (>60); EGFR Non-African American 104.3 (>60); Potassium 3.1 mmol/L (3.5-5.0)
[2018-11-18 08:16] LABS: Hematocrit 31 % (35-47); Hemoglobin 10.3 g/dL (12.0-16.0); Mean Corpuscular HGB Conc 34 g/dL (31-36); Mean Corpuscular Hemoglobin 31 pg (27-31); Mean Corpuscular Volume 91 fL (80-97); Red Blood Count 3.38 10^6 /uL (3.70-4.87); Red Cell Distribution Width 15 % (10.5-15)
[2018-11-18 09:07] LABS: ABS Basophils 0.1 10^3/ul (0-0.2); ABS Eosinophils 0.4 10^3/ul (0-0.6); ABS Lymphocytes 1.8 10^3/ul (1.0-4.8); ABS Monocytes 0.4 10^3/ul (0-0.8); ABS Neutrophils 5.5 10^3/ul (1.5-7.7); ABS Nucleated RBC 0 10^3/ul; Eosinophil % 4.6 %; Mean Platelet Volume 9.1 fL (7.4-10.4); Nucleated Red Blood Cells % 0.2; Platelet Count 326 10^3/uL (150-450); White Blood Count 8.3 10^3/uL (3.5-10.8)
[2018-11-18] MEDS: Pantoprazole IV* 40 MG IV SCH ×2 (09:43→20:28)
[2018-11-18] MEDS: TIMOLOL XE 0.5% BOTH EYES SCH (09:43)
[2018-11-18] MEDS: Spironolactone TAB* 25 MG PO SCH (09:43)
[2018-11-18] MEDS: amLODIPine TAB* 5 MG PO SCH (09:43)
[2018-11-18] MEDS: Losartan TAB* 25 MG PO SCH (09:43)
--- NOTE | 2018-11-18 12:39 | PN ---
Subjective Date of Service: 11/18/18 Interval History: HOSPITALIST PROGRESS NOTE Patient seen and examined at bedside. Care reviewed and d/w Vicente Gramajo RN. She feels well today. Abdominal pain is less intense, tolerating diet well, no N /V. Family History: Unchanged from Admission Social History: Unchanged from Admission Past Medical History: Unchanged from Admission Objective Active Medications: Amlodipine Besylate (Norvasc Tab*) 2.5 mg PO DAILY [facility] Last Admin: 11/18/18 09:43 Dose: 2.5 mg Atorvastatin Calcium (Lipitor*) 40 mg PO 2100 [facility] Last Admin: 11/17/18 21:02 Dose: 40 mg Piperacillin Sod/Tazobactam (Sod 3.375 gm/ Sodium Chloride) 100 mls @ 25 mls/ hr IVPB Q8H [facility] Last Admin: 11/18/18 05:46 Dose: 25 mls/hr Levothyroxine Sodium (Synthroid Tab*) 175 mcg PO 0600 [facility] Last Admin: 11/18/18 05:46 Dose: 175 mcg Losartan Potassium (Cozaar Tab*) 50 mg PO DAILY [facility] Last Admin: 11/18/18 09:43 Dose: 50 mg Loteprednol Etabonate (Lotemax 0.5% Oph.Susp (Nf)) 1 drop BOTH EYES BEDTIME [facility] Last Admin: 11/17/18 21:05 Dose: 1 drop Metoclopramide HCl (Reglan Iv*) 5 mg IV Q6H PRN PRN Reason: NAUSEA Last Admin: 11/13/18 03:14 Dose: 5 mg Morphine Sulfate (Morphine Inj (Syringe))*) 2 mg IV Q1H PRN PRN Reason: PAIN Last Admin: 11/16/18 22:03 Dose: 2 mg Ondansetron HCl (Zofran Inj*) 4 mg IV Q4H PRN PRN Reason: NAUSEA Pantoprazole Sodium (Protonix Iv*) 40 mg IV BID [facility] Last Admin: 11/18/18 09:43 Dose: 40 mg Pharmacy Consult (Zosyn Per Pharmacy*) 1 note FOLLOW UP .ZOSYN PER PHARMACY [facility] Phenol/Menthol (Chloroseptic Throat [place]*) 1 spray MT Q3H PRN PRN Reason: SORE THROAT Spironolactone (Aldactone Tab*) 25 mg PO DAILY [facility] Last Admin: 11/18/18 09:43 Dose: 25 mg Timolol Maleate (Timoptic-Xe 0.5% (Ophth)(Nf)) 1 drop BOTH EYES QAM [facility] Last Admin: 11/18/18 09:43 Dose: 1 drop Vital Signs - 8 hr 11/18/18 11/18/18 11/18/18 07:23 07:53 11:36 Temperature 97.9 F 97.8 F Pulse Rate 71 55 Respiratory 16 16 18 Rate Blood Pressure 149/84 146/73 (mmHg) O2 Sat by Pulse 100 100 Oximetry Oxygen Devices in Use Now: None Appearance: Pleasant morbid obese lady sitting up in a chair in NAD. Eyes: No Scleral Icterus Ears/Nose/Mouth/Throat: Mucous Membranes Moist Neck: Trachea Midline Respiratory: Symmetrical Chest Expansion and Respiratory Effort, Clear to Auscultation Cardiovascular: RRR - Normal S1 and S2 Extremities: - - Mild bilateral LE pitting edema Neurological: Alert and Oriented x 3, NL Muscle Strength and Tone Result Diagrams: 11/18/18 07:20 11/18/18 07:20 Microbiology and Other Data: Microbiology 11/13/18 12:31 Peritoneal Fluid Gram Stain - Final 11/13/18 12:31 Peritoneal Fluid Skin and Soft Tissue MRSA/MSSA (PCR - Final Mrsa Negative S.aureus Negative 11/13/18 01:49 Blood Venous Anaerobic Blood Culture - Final Streptococcus Anginosus 11/13/18 12:31 Peritoneal Fluid Body Fluid Culture - Preliminary Klebsiella Aerogenes Streptococcus Anginosus Prevotella Denticola 11/13/18 01:49 Blood Venous Aerobic Blood Culture - Preliminary 11/13/18 01:49 Blood Venous No Growth Day 3 Assess/Plan/Problems-Billing Assessment: Mrs Khanna is a 63 yo F with PMH of HTN, HLD, Lise's thyroiditis, perforated gastric ulcer s/p Rahul patch 10/30/18, who presented with fever and abdominal pain, found to have abscess/fluid collection near repair site s/p IR drainage. Hospitalist service consulted for management of chronic conditions. - Patient Problems (1) Abscess, intra-abdominal, postoperative Comment: - Peritoneal cultures growing polymicrobial davi, including Klebsiella , Strep, Prevotella. - Blood cultures grew streptoccocus. - Repeat blood cultures are pending. - Awaiting transthoracic echocardiogram. - Continue Zosyn for now - may switch to PO 3rd generation cephalosporin ( Cefdinir or Cefpodoxime) and Metronidazole, but will defer to primary team. (2) Peptic ulcer Comment: - Continue PPI IV and switch back to Omeprazole 40mg/day on discharge. (3) Hypothyroidism Comment: - Continue PO Levothyroxine. (4) Hypertension Comment: - Trending up and patient c/o feeling "puffy". - Resume Amlodipine, continue Aldactone and increase Losartan. (5) DVT prophylaxis Comment: - SCDs. Status and Disposition: Inpatient. Hospitalist service will continue to follow.
[2018-11-18] MEDS ORDERED: Potassium Chlor TAB* 20 MEQ TAB.ER PO ONE (12:51)
--- NOTE | 2018-11-18 15:28 | ECHO ---
*[facility]* [place] [address] Fax #: [phone] Transthoracic Echocardiogram Patient: Clemencia, Height: 64 in / Ariadne Yañez 162.6 cm : 1955 Weight: 249.5 lb / Study Date: 11/18/2018 113.4 kg Age: 63 BP: 133 / 59 Gender: F BMI/BSA: 42.9 kg/m^2 HR: 43 bpm / 2.15 m^2 *Office Lead: * Moni Elliott [facility] *Referring Physician: * Ernestine GunterReading Physician: * Eliel Johnson MD Indications: Bacteremia. History: Risk factors: Hypertension. Obese. Dyslipidemia. S/P lap. omental patch repair of perforated gastric ulcer 10/30/18. Conclusions Summary: 1. Left ventricle: The cavity size is normal. Systolic function is normal. The estimated ejection fraction is 55-65%. Wall motion is normal; there are no regional wall motion abnormalities. 2. Right ventricle: The cavity size is mildly dilated. Systolic function is normal. 3. Left atrium: The atrium is mildly to moderately dilated. 4. Functionally benign heart valves including no significant intra-cardiac vegetation noted on this transthoracic echocardiogram. 5. Ascending aorta: The ascending aorta is mildly dilated. 6. There is no prior echocardiogram available to compare with at this time. If clinical suspicion persists for intra-cardiac source of bacteremia, consider transesophageal echocardiogram. Study data: Transthoracic echocardiogram. Procedure: Transthoracic echocardiography was performed. Image quality was fair. The study was technically limited due to poor acoustic window availability and body habitus. Complete 2D, spectral Doppler, and color flow Doppler. Location: Bedside. Patient status: Inpatient. Patient room number: 331. Rhythm: Bradycardia. Findings Left ventricle: The cavity size is normal. Systolic function is normal. The estimated ejection fraction is 55-65%. Wall motion is normal; there are no regional wall motion abnormalities. Doppler parameters are consistent with abnormal left ventricular relaxation (grade 1 diastolic dysfunction). Right ventricle: The cavity size is mildly dilated. Systolic function is normal. Left atrium: The atrium is mildly to moderately dilated. Right atrium: The atrium is normal in size. Mitral valve: The leaflets are mildly thickened. There is no evidence of a vegetation. There is no evidence of stenosis. There is trivial regurgitation. The peak diastolic gradient is 3.4 mm Hg. Aortic valve: The valve is trileaflet. The leaflets are mildly thickened. There is no evidence of stenosis. There is no significant regurgitation. The ratio of LVOT to aortic valve peak velocity is 0.53. The ratio of LVOT to aortic valve mean velocity is 0.55. The mean systolic gradient is 4.0 mm Hg. The peak systolic gradient is 8.0 mm Hg. Tricuspid valve: The leaflets are normal thickness. There is no evidence of a vegetation. There is mild regurgitation. No pulmonary hypertension with estimated pulmonary artery systolic pressure of 27 mm Hg. Pulmonic valve: Not well visualized. There is no evidence of stenosis. There is no significant regurgitation. The peak systolic gradient is 3.0 mm Hg. Aorta: Ascending aorta: The ascending aorta is mildly dilated. Aortic arch: The aortic arch is appears normal. The aortic root is not dilated. Pericardium: A prominent pericardial fat pad is present. There is no significant pericardial effusion. Pulmonary arteries: Not well visualized. Systemic veins: Inferior vena cava: The vessel is normal in size. The respirophasic diameter changes are blunted (< 50%). Measurements Left ventricle Value Ref Right atrium Value Ref GINGER, LAX 4.1 cm 3.8 - 5.2 SI dim, ES 4.1 cm 3.4 - ESD, LAX 3.0 cm 2.2 - 3.5 5.3 FS, LAX 27 % 27 - 45 ML dim, ES, A4C 3.9 cm 2.6 - PW, ED, LAX (H) 1.1 cm 0.6 - 0.9 4.4 GINGER 4.1 cm 3.8 - 5.2 Estimated RAP 8 mm Hg -------- ESD 3.0 cm 2.2 - 3.5 FS 27 % 27 - 45 Aortic valve Value Ref PW, ED (H) 1.1 cm 0.6 - 0.9 Saira diam, ED 1.8 cm -------- EF (L) 52 % 54 - 74 Saira diam/bsa, ED 0.8 cm/m^2 -------- Mass 149 g 66 - 150 Peak v, S 1.39 m/sec -------- Mass/bsa 69 g/m^2 44 - 88 Mean v, S 0.95 m/sec -------- Mass/ht 91.42 g/m --------- VTI, S 33.7 cm -------- Mass/ht^2.7 40.02 g/m^2.7 --------- Mean grad, S 4.0 mm Hg -------- E', lat saira, TDI (L) 7.5 cm/sec >=10.0 Peak grad, S 8.0 mm Hg -- ------ E/e', lat saira, 12 --------- LVOT/AV, Vpeak 0.53 ----- --- TDI ratio E', med saira, TDI (L) 6.2 cm/sec >=7.0 E/e', med saira, 15 --------- Mitral valve Value Ref TDI Peak E 0.93 m/sec -------- E', avg, TDI 6.9 cm/sec --------- Peak A 1.11 m/sec ----- --- E/e', avg, TDI 14 <=14 Decel time 190 ms -- ------ Peak grad, D 3.4 mm Hg -------- LVOT Value Ref Peak E/A ratio 0.8 -------- Peak falguni, S 0.73 m/sec --------- Mean falguni, S 0.53 m/sec --------- Tricuspid valve Value Ref Mean grad, S 1 mm Hg --------- TR peak v 2.57 m/sec <=2.8 Peak RV-RA grad, S 26 mm Hg -------- Ventricular septum Value Ref IVS, ED, LAX (H) 1.1 cm 0.6 - 0.9 Aortic root Value Ref IVS, ED (H) 1.1 cm 0.6 - 0.9 Root diam 3.2 cm <4.3 Right ventricle Value Ref Ascending aorta Value Ref GINGER, LAX 3.0 cm --------- AAo AP diam, S 3.8 cm -------- GINGER minor ax, A4C 0.0 cm --------- GINGER minor ax, A4C (H) 4.6 cm 1.9 - 3.5 Aortic arch Value Ref mid Arch diam 2.4 cm -------- Pressure, S 25 mm Hg --------- Decending aorta Value Ref Left atrium Value Ref [place] falguni 0.81 m/sec -------- AP dim, ES 3.30 cm 2.70 - 3.80 Pulmonary artery Value Ref ML dim, A4C 4.5 cm --------- Pressure, S 22.0 mm Hg -------- Vol/bsa, ES, 1-p 39 ml/m^2 11 - 40 A4C Inferior vena cava Value Ref Vol/bsa, ES, A/L (H) 43 ml/m^2 16 - 34 Diam 2.1 cm -------- Legend: (L) and (H) hernan values outside specified reference range. Prepared and electronically signed by Eliel Johnson MD 11/18/2018 15:26
--- NOTE | 2018-11-18 15:58 | PN ---
Progress Note - Progress Note Date of Service: 11/18/18 Note: Day#5 s/p abscess drainage Afeb, VS OK UO good Pigtail drainage nil Catherine liqs, No N/V Abd benign, pigtail removed Echo OK. If OK w/ Dr Baxter will disch 5/3 on oral abx Home on oral PPI F?U my office 1 week
[2018-11-18] MEDS ORDERED: KCL 10 MEQ/50 ML IVPREMIX* 10 MEQ/50 ML BAG IV SCH (18:00)
[2018-11-18] MEDS: Atorvastatin* 40 MG TAB PO SCH (20:20)
[2018-11-18] MEDS: PTO:Loteprednol 0.5% OPH.SUSP(NF) 5 ML BTL BOTH EYES SCH (20:21)
[2018-11-18] MEDS: KCL 10 MEQ/50 ML IVPREMIX* 10 MEQ/50 ML BAG IV SCH ×2 (20:26→22:27)
[2018-11-18] MEDS ORDERED: ZOSYN 3.375 GM x ONE DOSE over 30 miuntes IVPB ×2 (22:00)
[2018-11-19] MEDS: KCL 10 MEQ/50 ML IVPREMIX* 10 MEQ/50 ML BAG IV SCH (00:26)
[2018-11-19] MEDS ORDERED: Piperacillin/Tazobac ADVAN(*) 3.375 GM in NS 0.9% 100 ML* 100 ML IVPB SCH (04:00)
[2018-11-19] MEDS: Levothyroxine TAB* 175 MCG TAB PO SCH (05:03)
[2018-11-19 06:58] LABS: Calcium 9.5 mg/dL (8.6-10.3); EGFR African American 119.1 (>60); EGFR Non-African American 98.4 (>60); Potassium 3.8 mmol/L (3.5-5.0)
[2018-11-19 07:46] VITALS: BP 130/67
[2018-11-19 08:42] LABS: BUN/Creatinine Ratio 1.6 (8-20)
[2018-11-19] MEDS: Losartan TAB* 25 MG PO SCH (09:27)
[2018-11-19] MEDS: Spironolactone TAB* 25 MG PO SCH (09:27)
[2018-11-19] MEDS: amLODIPine TAB* 5 MG PO SCH (09:27)
[2018-11-19] MEDS: TIMOLOL XE 0.5% BOTH EYES SCH (09:27)
[2018-11-19] MEDS: Pantoprazole IV* 40 MG IV SCH (09:28)
--- NOTE | 2018-11-19 11:29 | PN ---
Progress Note - Progress Note Date of Service: 11/19/18 Note: S/P abscess drainage Afeb Feels well No pain Catherine po's no N/V Voiding well Ambulating Abd benign on exan, trace epig tenderness Disch home on oral Abx and PPI F/U in office F/U w/ Dr Mora
--- NOTE | 2018-11-19 14:08 | DS ---
CC: Efrain Alamo MD; Dr. Porfirio Mora; Dr. Ruthie Diaz DISCHARGE SUMMARY: DATE OF ADMISSION: 11/12/18 DATE OF DISCHARGE: 11/19/18 PRINCIPAL ADMITTING DIAGNOSIS: Abdominal abscess. HISTORY: Ms. Khanna is a 63-year-old female who was 2 weeks out from a perforated antral ulcer who h ad been doing well at home and then started to develop fevers. She came back to the hospital and was found to have an abscess in the region of the previous perforation. This was treated with a percutan eous drain. She also had nasogastric drainage, both of these drains were in place for 3 days and the n dye study did not reveal any leak from the ulcer site and there was also very nice resolution of th e abscess, so the nasogastric tube was removed. She was started on liquid diet. Subsequently, the p igtail drain was removed. She was maintained on intravenous antibiotics until the time of discharge and will be discharged home on oral antibiotics. The cultures grow out Klebsiella and Strep anginosu s. So, she is discharged home on Bactrim and clindamycin. She was also seen in consultation by Dr. Porfirio Mora who will follow her up for her peptic ulcer disease. She is discharged home on omepraz ole 40 mg a day at the request of Dr. Baxter. She is going to continue on her previous medications a nd she was discharged home in good condition and was stick to a soft diet and will follow up in the [facility] in about week. [id number]/[facility] #: [id number]
--- NOTE | 2018-11-19 17:36 | PN ---
Subjective Date of Service: 11/19/18 Interval History: HOSPITALIST PROGRESS NOTE Patient seen and examined at bedside earlier today. Care reviewed and d/w Queta Holt RN. She feels well today and offers no complaints. Family History: Unchanged from Admission Social History: Unchanged from Admission Past Medical History: Unchanged from Admission Objective Selected Entries 11/19/18 07:27 Temperature 98.1 F Pulse Rate 58 Respiratory 16 Rate Blood Pressure 130/67 (mmHg) O2 Sat by Pulse 96 Oximetry Oxygen Devices in Use Now: None Appearance: Pleasant morbid obese lady sitting up in bed in NAD. Eyes: No Scleral Icterus Ears/Nose/Mouth/Throat: Mucous Membranes Moist Neck: Trachea Midline Respiratory: Symmetrical Chest Expansion and Respiratory Effort, Clear to Auscultation Cardiovascular: RRR - Normal S1 and S2 Neurological: Alert and Oriented x 3, NL Muscle Strength and Tone Result Diagrams: 11/18/18 07:20 11/19/18 06:10 Microbiology and Other Data: Microbiology 11/13/18 12:31 Peritoneal Fluid Gram Stain - Final 11/13/18 12:31 Peritoneal Fluid Skin and Soft Tissue MRSA/MSSA (PCR - Final Mrsa Negative S.aureus Negative 11/13/18 01:49 Blood Venous Anaerobic Blood Culture - Final Streptococcus Anginosus 11/13/18 12:31 Peritoneal Fluid Body Fluid Culture - Preliminary Klebsiella Aerogenes Streptococcus Anginosus Prevotella Denticola 11/13/18 01:49 Blood Venous Aerobic Blood Culture - Preliminary 11/13/18 01:49 Blood Venous No Growth Day 3 Assess/Plan/Problems-Billing Assessment: Mrs Khanna is a 63 yo F with PMH of HTN, HLD, Lise's thyroiditis, perforated gastric ulcer s/p Rahul patch 10/30/18, who presented with fever and abdominal pain, found to have abscess/fluid collection near repair site s/p IR drainage. Hospitalist service consulted for management of chronic conditions. - Patient Problems (1) Abscess, intra-abdominal, postoperative Comment: - Peritoneal cultures growing polymicrobial davi, including Klebsiella , Strep, Prevotella. - Blood cultures grew streptoccocus. - Repeat blood cultures show no growth. - Transthoracic echocardiogram showed no vegetation. As she continues to improve and blood cultures have now cleared up, would not pursue SHAW as suspicion for endocarditis is low at this time. - Continue Zosyn for now - may switch to PO 3rd generation cephalosporin ( Cefdinir or Cefpodoxime) and Metronidazole, but will defer to primary team. (2) Peptic ulcer Comment: - Continue PPI IV and switch back to Omeprazole 40mg/day on discharge. - She already has a f/u scheduled with Dr Mora from her prior admission. (3) Hypothyroidism Comment: - Continue PO Levothyroxine. (4) Hypertension Comment: - Controlled. - Continue Amlodipine, Aldactone, Losartan. (5) DVT prophylaxis Comment: - SCDs. Status and Disposition: Inpatient. Hospitalist service will sign off.
== END 2018-11-19 11:50 | disposition home or self-care (01) | DRG 372 ==
LOC: ED 19:04 → SSU 11-13 01:37 → OBSVTOIN 11-13 15:04
PROVIDERS: ADMIT Hospitalist; ATTEND Surgery
PROC: 0W9G30Z Drainage of Peritoneal Cavity with Drainage Device, Percutaneous Approach (ICD-10-PCS; principal; 2018-11-13)
DX: K65.1 Peritoneal abscess (principal); Z68.41 Body mass index [BMI] 40.0-44.9, adult; T81.40XA Infection following a procedure, unspecified, initial encounter; R78.81 Bacteremia; E78.5 Hyperlipidemia, unspecified; E06.3 Autoimmune thyroiditis; M19.90 Unspecified osteoarthritis, unspecified site; K25.9 Gastric ulcer, unspecified as acute or chronic, without hemorrhage or perforation; I10 Essential (primary) hypertension; E66.01 Morbid (severe) obesity due to excess calories; E83.52 Hypercalcemia; B96.1 Klebsiella pneumoniae [K. pneumoniae] as the cause of diseases classified elsewhere; B95.4 Other streptococcus as the cause of diseases classified elsewhere; Z98.890 Other specified postprocedural states; Z82.49 Family history of ischemic heart disease and other diseases of the circulatory system; Z79.899 Other long term (current) drug therapy; Z88.8 Allergy status to other drugs, medicaments and biological substances; Z91.018 Allergy to other foods; Z87.891 Personal history of nicotine dependence
CPT/HCPCS: 36415; 49406; 74150; 74177; 74246; 80048; 80053; 81003; 81015; 82465; 83605; 83690; 83735; 84100; 84134; 84478; 84484; 85025; 85610; 85730; 86140; 87040; 87070; 87076; 87077; 87185; 87186; 87205; 87640; 87641; 93005; 93306; 99284; A9270-GY; J0610; J2250; J2270; J2405; J2543; J2765; J3010; J3430; J3475; J3480; Q9967

== ENCOUNTER 2019-06-09 07:12 | Inpatient (IN) | payer MEDICARE, BC ==
--- NOTE | 2019-05-27 10:00 | HP ---
PREOPERATIVE HISTORY AND PHYSICAL: DATE OF ADMISSION/SURGERY: 06/09/19 DATE OF OFFICE VISIT: 05/27/19 SURGEON: Verenice Conti MD * (DICTATED BY ESTELLA BARBER) PROCEDURE: Left total knee arthroplasty. CHIEF COMPLAINT: Left knee pain. HISTORY OF PRESENT ILLNESS: Ms. Khanna is a 63-year-old female with continued complaints of left knee pain secondary to osteoarthritis. She has failed conservative treatment and elected to proceed with the left total knee arthroplasty. PAST MEDICAL HISTORY: Hypertension, high cholesterol, hypothyroidism, GERD, and skin cancer. PAST SURGICAL HISTORY: Laparoscopy, bilateral cataract removal, bilateral corneal transplants, ORIF of the right ankle, tonsillectomy, cholecystectomy, and tubal ligation. CURRENT MEDICATIONS: 1. Omeprazole 40 mg a day. 2. Losartan potassium 50 mg a day. 3. Spironolactone 25 mg half a tab daily. 4. Amlodipine 2.5 mg daily. 5. Atorvastatin calcium 40 mg a day. 6. Levothyroxine 175 mcg a day. 7. Lotemax 0.5% to each eye. 8. Timolol ophthalmic gel 0.5% to each eye. ALLERGIES: To DEMEROL, HYDROCHLOROTHIAZIDE, NAPROXEN. FAMILY HISTORY: Coronary artery disease. SOCIAL HISTORY: She is a 63-year-old female. She lives with her . She does not smoke, use drugs or alcohol. REVIEW OF SYSTEMS: A complete 14-point review of systems was reviewed with the patient, is positive for GERD. She denies history of DVT, PE, hepatitis, HIV, or anesthesia problems. PHYSICAL EXAMINATION GENERAL: She is well-developed, well-nourished, in no acute distress. VITAL SIGNS: She stands 5 feet 4 inches tall, weighs 270 pounds, her blood pressure is 132/74, heart rate is 72. HEENT: Normocephalic, atraumatic. NECK: Supple. No palpable lymph nodes. PULMONARY: Lungs are clear to auscultation bilaterally. CARDIO: Regular rate and rhythm. Strong S1 and S2. ABDOMEN: Soft, nontender, nondistended. NEUROLOGICAL: She is alert and oriented x3. MUSCULOSKELETAL: Left lower extremity: The skin is intact. There are no open wounds or abrasions. She walks with an antalgic type of gait favoring her left knee. She has a moderate effusion of the left knee joint. Some tenderness over the medial and lateral joint line. Range of motion is 10 to 110 degrees of flexion with patellofemoral crepitus. She is able to dorsiflex and plantarflex, has a 2+ dorsalis pedis pulse, and intact sensation. ASSESSMENT AND PLAN: Ms. Khanna is a 63-year-old female with end-stage osteoarthritis of the left knee. She has failed conservative treatment and elected to proceed with the left total knee arthroplasty. The surgery is scheduled for 06/09/[address] Conti. discussed the risks and benefits of the surgery at today's visit and all of her questions were answered. She will follow up with Dr. Conti 2 weeks after the surgery. ESTELLA BARBER [id number]/CPS #: [id number] MTDD
[~2019-06-09 07:12] MED LIST: Acetaminophen TAB* 325 MG PO ONE; Buffered Lidocaine 1% SYRIN* 1 ML/SYRINGE INTRADERM ONE; Lactated Ringers 1000 ML Bag* 1,000 ML IV SCH; Tranexamic Acid 1,000 MG in NS 0.9% 50 ML* (outpatient use) IV SCH
--- OUTSIDE RECORDS SUMMARY | 2019-06-09 07:14 | XMS REPORT | Continuity of Care Document ---
:1955 External Reference #:[id number] Author Name Ruthie Diaz M.D. (transmitted by agent of provider Gloria Olson) Address [address], [place] [address] Problems Active Problems Provider Date Hyperlipidemia Ruthie Diaz M.D. Onset: 07/31/2010 Hypothyroidism Ruthie Diaz M.D. Onset: 07/31/2010 Essential hypertension Ruthie Diaz M.D. Onset: 05/31/2015 Localized, primary osteoarthritis of the Verenice Conti M.D. Onset: 06/18/2015 pelvic region and thigh Localized, primary osteoarthritis Verenice Conti M.D. Onset: 06/09/2018 Ocular hypertension Ruthie Diaz M.D. Onset: 12/23/2018 Social History Type Date Description Comments Sex Unknown ETOH Use Denies alcohol use Tobacco Use Start: Unknown End: Patient is a former quit at age 29 Unknown smoker Recreational Drug Use Denies Drug Use Smoking Status Reviewed: 05/31/19 Patient is a former quit at age 29 smoker Exercise Type/Frequency Exercises regularly Started PT - machine and pool exercises. Knee surgery coming up in May. Allergies, Adverse Reactions, Alerts Active Allergies Reaction Severity Comments Date Demerol Nausea and Vomiting, LOW BP Severe 12/26/2009 Hydrochlorothiazide hypercalcemia? 01/10/2013 Naproxen stomach problems 07/23/2015 Medications Active Medications SIG Qnty Indications Ordering Provider Date Omeprazole 1 by mouth 30caps Porfirio Mora, 11/03/[address] every day Losartan Potassium Take 1 Tablet 90tabs I10 Ruthie Diaz, 02/26/2018 50mg By Mouth Every M.D. Tablets Day Spironolactone Take One-Half 45tabs I10 Ruthie Diaz, 12/23/2012 25mg Tablets Tablet By Mouth M.D. Every Day Amlodipine Besylate Take 1 Tablet 90tabs I10 [facility], 07/19/2012 2.5mg By Mouth Once M.D. Tablets Daily Wrist Brace/Suede 2units 782.0 [facility], 07/17/2011 Finish/Right And Left M.D. Misc Atorvastatin Calcium take 1 tablet 90tabs E78.2 [facility], 2010 40mg by mouth once M.D. Tablets daily Levothyroxine Sodium take 1 tablet 90tabs [facility], 12/26/2009 175mcg by mouth once M.D. Tablets daily Lotemax Noble, 0.5% Suspension MD John Timolol Maleate Noble, Ophthalmic Gel Forming MD John 0.5% GFS Medications Administered in Office Medication SIG Qnty Indications Ordering Provider Date Depomedrol 40MG Verenice Conti M.D. 03/11/2019 Injection Depomedrol 40MG Verenice Conti M.D. 03/11/2019 Injection Depomedrol 40MG Verenice Conti M.D. 12/10/2018 Injection Depomedrol 40MG Verenice Conti M.D. 12/10/2018 Injection Depomedrol 40MG Verenice Conti M.D. 09/13/2018 Injection Depomedrol 40MG Verenice Conti M.D. 09/13/2018 Injection Depomedrol 40MG Verenice Conti M.D. 06/09/2018 Injection Depomedrol 40MG Verenice Conti M.D. 06/09/2018 Injection Depomedrol 80MG Verenice Conti M.D. 06/18/2015 Injection Immunizations CPT Code Status Date Vaccine Lot # [id number] Given 03/25/2019 Influenza Virus Vaccine, Quadrivalent, Split, Preservative Free [id number] Given 04/01/2018 Influenza Virus Vaccine, Quadrivalent, Split, Preservative Free 98720 Given 04/20/2017 Influenza Virus Vaccine, Quadrivalent, Split, Preservative Free Q2035 Given 03/31/2016 Afluria Vaccine Q2035 Given 04/23/2015 Afluria Vaccine 79914 Given 05/30/2014 Zoster (Zostavax) [id number] Given 05/30/2014 Tdap - Tetanus/Diptheria/Acellular Pertussis [id number] Q2037 Given 04/17/2014 Fluvirin Im 3Yrs And Older Q2035 Given 05/06/2012 Afluria Vaccine Vital Signs Date Vital Result Comment 05/31/2019 10:30am Height 64 inches 5'4" Weight 266.00 lb Heart Rate 60 /min BP Systolic 132 mmHg BP Diastolic 72 mmHg O2 % BldC Oximetry 97 % BMI (Body Mass Index) 45.7 kg/m2 05/27/2019 8:36am Height 64 inches 5'4" Weight 270.00 lb Heart Rate 72 /min BP Systolic 132 mmHg BP Diastolic 74 mmHg Respiratory Rate 12 /min Pain Level 5 BMI (Body Mass Index) 46.3 kg/m2 Results Test Acquired Date Facility Test Result H/L Range Note Inr/Protime 05/27/2019 [facility] Inr 1.03 Normal 0.82-1.[address] [place] [address] [phone] Laboratory test 05/27/2019 [facility] Partial 35.3 Normal 26.0 -38.[address] [place] [address] PTT [phone] CBC Auto Diff 05/27/2019 [facility] White Blood 7.4 10^3/uL Normal 3.5-10.[address] [place] [address] [phone] Red Blood Count 4.41 10^6/uL Normal 3.70-4.87 Hemoglobin 13.6 g/dL Normal 12.0-16.0 Hematocrit 40 % Normal 35-47 Mean Corpuscular Volume 92 fL Normal 80-97 Mean Corpuscular Hemoglobin 31 pg Normal 27-31 Mean Corpuscular HGB Conc 34 g/dL Normal 31-36 Red Cell Distribution Width 15 % Normal 10-15 Platelet Count 251 10^3/uL Normal 150-450 Mean Platelet Volume 8.0 fL Normal 7.4-10.4 Abs Neutrophils 4.8 10^3/uL Normal 1.5-7.7 Abs Lymphocytes 1.9 10^3/uL Normal 1.0-4.8 Abs Monocytes 0.5 10^3/uL Normal 0-0.8 Abs Eosinophils 0.2 10^3/uL Normal 0-0.6 Abs Basophils 0.0 10^3/uL Normal 0-0.2 Abs Nucleated RBC 0.0 10^3/uL Granulocyte % 65.1 % Lymphocyte % 25.2 % Monocyte % 6.8 % Eosinophil % 2.4 % Basophil % 0.5 % Nucleated Red Blood Cells % 0.1 Comp Metabolic 05/27/2019 [facility] Sodium 140 mmol/L Normal 135-145 Panel [address] [place] [address] [phone] Potassium 4.3 mmol/L Normal 3.5-5.0 Chloride 102 mmol/L Normal 101-111 Co2 Carbon Dioxide 32 mmol/L Normal 22-32 Anion Gap 6 mmol/L Normal 2-11 Glucose 88 mg/dL Normal 70-100 Blood Urea Nitrogen 14 mg/dL Normal 6-24 Creatinine 0.66 mg/dL Normal 0.51-0.95 BUN/Creatinine Ratio 21.2 High 8-20 Calcium 10.5 mg/dL High 8.6-10.3 Total Protein 7.1 g/dL Normal 6.4-8.9 Albumin 4.2 g/dL Normal 3.2-5.2 Globulin 2.9 g/dL Normal 2-4 Albumin/Globulin Ratio 1.4 Normal 1-3 Total Bilirubin 0.60 mg/dL Normal 0.2-1.0 Alkaline Phosphatase 31 U/L Low 34-104 Alt 28 U/L Normal 7-52 Ast 20 U/L Normal 13-39 Egfr Non- 89.9 >60 Egfr 108.8 >60 2 Type & Screen 05/27/2019 [facility] Patient Blood Type O Negative [address] [place] [address] [phone] Antibody Screen NEGATIVE Urinalysis Profile 05/27/2019 [facility] Urine Color Yellow [address] [place] [address] [phone] Urine Appearance Clear Urine Specific Bethany 1.009 Low 1.010-1.030 Urine pH 5.0 Normal 5-9 Urine Urobilinogen Negative Negative Urine Ketones Negative Negative Urine Protein Negative Negative Urine Leukocytes Negative Negative Urine Blood Negative Negative Urine Nitrite Negative Negative Urine Bilirubin Negative Negative Urine Glucose Negative Negative Urine Culture And 05/27/2019 [facility] Urine Culture SEE RESULT [address] [place], [place] [id number] [phone] Laboratory test 01/31/2019 [facility] Clotest SEE RESULT 4 , [address] [place] [address] [phone] Laboratory test 01/31/2019 [facility] Surgical SEE RESULT 6 , [address] [place] [place] [address] [phone] 1 Standard intensity warfarin therapeutic range: 2.0-3.0 High intensity warfarin therapeutic range: 2.5-3.5 2 Because ethnic data is not always readily [...] 15-29 5 Kidney failure <15 (or dialysis) 3 SEE RESULT BELOW Name: CORA KHANNA : [address]: Verenice Conti MD Acct: [id number] Unit: [id number] AGE: 63 Location: [facility] Re05/27/19 SEX: F Status: REG REF SPEC: [id number] [place]: 05/27/19-1005 [facility] [address]: Verenice Conti MD REQ: [id number] RECD: 05/27/19 STATUS:ALLI BOYD DR: Ruthie Diaz MD _ SOURCE: URINE SPDESC: ORDERED: Urine Culture QUERIES: Urine Source: Random Procedure Result Reported Site Urine Culture Final 05/28/19- 1122 ML No growth of clinically significant organisms * ML - Main Lab . END OF REPORT DEPARTMENT OF PATHOLOGY, [address] [place] [address] Joseph Calderon M.D. Director [facility] # [id number] 5 SEE RESULT BELOW Name: CORA KHANNA : [address]: Porfirio Mora MD Acct: [id number] Unit: [id number] AGE: 63 Location: [facility] Re01/31/19 SEX: F Status: DEP REF SPEC: [id number] [place]: 01/31/19-[address]: Porfirio Mora MD REQ: [id number] RECD: 01/31/19-1228 STATUS: ALLI DINH DR: Ruthie Diaz MD _ SOURCE: GAS ANTRUM SPDESC: ORDERED: Clotest COMMENTS: [id number] Procedure Result Reported Site Clotest Final 02/01/19- 703 ML Clotest Negative * - [facility] . END OF REPORT DEPARTMENT OF PATHOLOGY, [address] [place] [address] Joseph Calderon M.D. Director [facility] # [id number] 7 SEE RESULT BELOW Name: CORA KHANNA : [address]: Porfirio Mora MD Acct: [id number] Unit: [id number] AGE: 63 Location: [facility] Re01/31/19 SEX: F Status: DEP REF SPEC: [id number] [place]: 01/31/19-10[address] [facility] [address]: Porfirio Mora MD REQ: [id number] RECD: 01/31/191237 STATUS: LIV DINH DR: Ruthie Diaz MD _ ORDERED: LEVEL 4, IMMUNO-FIRST COMMENTS: [id number] ADDENDUM Addendum: Addendum: An immunohistochemical stain for Helicobacter pylori- like organisms was performed with appropriate controls and is negative. Addendum Signed (signature on file) Joseph Calderon MD 1348 FINAL DIAGNOSIS Stomach, biopsy: -- Body-type gastric mucosa with moderate chronic gastritis; see comment. COMMENT: An H. pylori immunohistochemical stain is pending and the results will be reported in an addendum. CLINICAL HISTORY Diet - good; weight watchers POST-OPERATIVE DIAGNOSIS EGD: esophagus - normal esophagogastric loose; small hiatal hernia; stomach - minimal erythema; body biopsy (2); PA test; duodenum - normal; conclusions: small hiatal hernia; gastritis; history of duoduenal ulcers CONTINUED ON NEXT PAGE DEPARTMENT OF PATHOLOGY, [address] [place] [address] Joseph Calderon M.D. Director [facility] # [id number] RUN DATE: 02/02/19 [facility] LAB LIVE PAGE 2 Patient: CORA KHANNA [id number] (Continued) GROSS DESCRIPTION (Continued) GROSS DESCRIPTION The specimen is received in formalin labeled, Biopsy Gastric Erosion, and consists of two retana-pink irregular soft tissue fragments measuring 0.6 x 0.2 x 0.2 cm and 0.9 x 0.2 x 0.1 cm which are submitted entirely in one cassette. Signed by and Reported on: Rosaura Osborn MD 02/01/19 1522 END OF REPORT DEPARTMENT OF PATHOLOGY, [address] [place] [address] Joseph Calderon M.D. Director [facility] # [id number] Procedures Date Code Description Status 03/11/201924742 Inject/Drain Joint/Bursa Major W/O US Completed 01/31/2019 51434 Endoscopy Upper GI Biopsy Completed 12/17/2018 [id number] Mammogram Completed 12/10/2018 01019 Inject/Drain Joint/Bursa Major W/O US Completed 11/05/2017 [id number] Mammogram Completed 10/16/2016 [id number] Mammogram Completed 07/30/2015 44270966 Mammogram Completed 07/09/2015 17701875 Colonoscopy Completed 07/28/2014 [id number] Mammogram Completed 07/30/2012 [id number] Mammogram Completed 03/20/2011 [id number] Mammogram Completed 08/09/2010 [id number] Mammogram Completed 01/31/2010 [id number] Mammogram Completed 11/04/2004 62601531 Colonoscopy Completed 08/17/2001 589955759 Bone Mineral Density Test Completed Medical Devices Description No Information Available Encounters Type Date Location Provider Dx Diagnosis Office Visit 03/04/2019 [facility] Porfirio Allred K44.9 Diaphragmatic 10:15a MD Morgan hernia without obstruction or gangrene Z87.11 Personal history of peptic ulcer disease E66.9 Obesity, unspecified M25.562 Pain in left knee M25.561 Pain in right knee Office Visit 12/24/2018 [facility] Porfirio Allred K26.1 Acute duodenal 10:00a MD [place] ulcer with perforation E66.9 Obesity, unspecified E03.9 Hypothyroidism, unspecified I10 Essential (primary) hypertension Office Visit 12/10/2018 11:15a [facility] Verenicejay Conti, M25.561 Pain in right at [place] M.D. knee M25.562 Pain in left knee M25.461 Effusion, right knee M25.462 Effusion, left knee M17.0 Bilateral primary osteoarthritis of knee Assessments Date Code Description Provider 05/31/2019 Z01.818 Encounter for other preprocedural Ruthie Diaz M.D. examination 05/31/2019 M17.0 Bilateral primary osteoarthritis of knee Ruthie Diaz M.D. 05/31/2019 I10 Essential (primary) hypertension Ruthie Diaz M.D. 05/31/2019 G47.9 Sleep disorder, unspecified Ruthie Diaz M.D. 05/27/2019 M25.562 Pain in left knee Verenice Conti M.D. 05/27/2019 M17.0 Bilateral primary osteoarthritis of knee Verenice Conti M.D. 03/11/2019 M25.562 Pain in left knee Verenice Conti M.D. 03/11/2019 M25.561 Pain in right knee Verenice Conti M.D. 03/11/2019 M17.0 Bilateral primary osteoarthritis of knee Verenice Conti M.D. 03/04/2019 K44.9 Diaphragmatic hernia without obstruction or Porfirio Mora MD gangrene 03/04/2019 Z87.11 Personal history of peptic ulcer disease Porfirio Mora MD 03/04/2019 E66.9 Obesity, unspecified Porfirio Mora MD 03/04/2019 M25.561 Pain in right knee Porfirio Mora MD 03/04/2019 M25.562 Pain in left knee Porfirio Mora MD 01/31/2019 K29.50 Unspecified chronic gastritis without Porfirio Mora MD bleeding 01/31/2019 K44.9 Diaphragmatic hernia without obstruction or Porfirio Mora MD gangrene 01/31/2019 Z87.11 Personal history of peptic ulcer disease Porfirio Mora MD 12/24/2018 K26.1 Acute duodenal ulcer with perforation Porfirio Mora MD 12/24/2018 E66.9 Obesity, unspecified Porfirio Mora MD 12/24/2018 E03.9 Hypothyroidism, unspecified Porfirio Mora MD 12/24/2018 I10 Essential (primary) hypertension Porfirio Mora MD 12/10/2018 M25.561 Pain in right knee Verenice Conti M.D. 12/10/2018 M25.562 Pain in left knee Verenice Conti M.D. 12/10/2018 M25.461 Effusion, right knee Verenice Conti M.D. 12/10/2018 M25.462 Effusion, left knee Verenice Conti M.D. 12/10/2018 M17.0 Bilateral primary osteoarthritis of knee Verenice Conti M.D. Plan of Treatment Future Appointment(s):07/29/2019 10:00 am - Ruthie Diaz M.D. at [facility] Internal Medicine - [facility]06/20/2019 3:15 pm - Verenice Conti M.D. at [facility] at Jgeoic5006/09/2019 8:30 am - Ronn Pisano PA-C at [facility] at Ojtnqy9606/09/2019 8:30 am - ESTELLA Valle at [facility] at Ufjmti7506/09/2019 8:30 am - Verenice Conti M.D. at [facility] at Tdywwv2305/31/2019 - Ruthie iDaz M.D.Z01.818 Encounter for other preprocedural examinationComments:Stop the fish oil a week prior to surgeryTake BP meds - amlodipine, spironolactone, losartan with sip of water in the morning of oimjsqjE10.0 Bilateral primary osteoarthritis of kneeI10 Essential (primary) hypertensionComments:Your blood pressure is fine. Continue the same medicationFollow up:.9 Sleep disorder, unspecifiedNew Orders: Home Sleep Testing, Ordered: 05/31/19Comments:I am concerned about the possibility of sleep apneaI ordered a home sleep testIf positive, you will need CPAP Functional Status Description No Information Available Mental Status Description No Information Available Referrals Description No Information Available
--- OUTSIDE RECORDS SUMMARY | 2019-06-09 07:14 | XMS REPORT | Continuity of Care Document ---
:1955 External Reference #:[id number] Author Name Verenice Conti M.D. (transmitted by agent of provider Chinyere Johnson) Address [address] [place] [address] Problems Active Problems Provider Date Hyperlipidemia Ruthie [...] Use Denies Drug Use Smoking Status Reviewed: 05/27/19 Patient is a former quit at age [...] mouth 30caps Porfirio Mora, 11/03/2018 40mg Capsules every day Losartan Potassium Take 1 Tablet 90tabs I10 Ruthie Diaz, 02/26/2018 50mg By Mouth Every M.D. Tablets Day Spironolactone Take One-Half 45tabs I10 Ruthie Diaz, 12/23/2012 25mg Tablets Tablet By Mouth M.D. Every Day Amlodipine Besylate Take 1 Tablet 90tabs I10 [facility], 07/19/2012 2.5mg By Mouth Once M.D. Tablets Daily Wrist Brace/Suede 2units 782.0 [facility], 07/17/2011 Finish/Right And Left M.D. Misc Atorvastatin Calcium Take 1 Tablet 90tabs E78.2 [facility], 2010 40mg By Mouth Once M.D. Tablets Daily Levothyroxine Sodium take 1 tablet 90tabs [facility], 12/26/2009 175mcg by mouth [...] CPT Code Status Date Vaccine Lot # [id number] Given 03/25/2019 Influenza Virus Vaccine, Quadrivalent, Split, Preservative Free 31461 Given 04/01/2018 Influenza Virus Vaccine, Quadrivalent, Split, Preservative Free 74668 Given 04/20/2017 Influenza Virus Vaccine, Quadrivalent, Split, Preservative Free Q2035 Given 03/31/2016 Afluria Vaccine Q2035 Given 04/23/2015 Afluria Vaccine 22983 Given 05/30/2014 Zoster (Zostavax) [id number] Given 05/30/2014 Tdap - Tetanus/Diptheria/Acellular Pertussis [id number] Q2037 Given 04/17/2014 Fluvirin Im 3Yrs And Older Q2035 Given 05/06/2012 Afluria Vaccine Vital Signs Date Vital Result Comment 05/27/2019 8:36am Height 64 inches 5'4" Weight 270.00 lb Heart Rate 72 /min BP Systolic 132 mmHg BP Diastolic 74 mmHg Respiratory Rate 12 /min Pain Level 5 BMI (Body Mass Index) 46.3 kg/m2 03/11/2019 10:26am Height 64 inches 5'4" Weight 250.00 lb Heart Rate 76 /min BP Systolic 128 mmHg BP Diastolic 74 mmHg Respiratory Rate 12 /min Pain Level 3 BMI (Body Mass Index) 42.9 kg/m2 Results Test Acquired Date Facility Test Result H/L Range Note Laboratory test 01/31/2019 [facility] Clotest SEE RESULT 1 , [address] [place] [address] [phone] Laboratory test 01/31/2019 [facility] Surgical SEE RESULT 3 , [address] [place] [address] [phone] 1 [id number] 2 SEE RESULT BELOW Name: CORA WHEELER : [address]: Porfirio Mora MD Acct: [id number] Unit: [id number] AGE: 63 Location: [facility] Re01/31/19 SEX: F Status: DEP REF SPEC: [id number] [place]: 01/31/[address] [facility] [address]: Porfirio Mora MD REQ: [id number] RECD: 01/31/19 STATUS: ALLI DINH DR: Ruthie Diaz MD _ SOURCE: GAS ANTRUM SPDESC: ORDERED: Clotest COMMENTS: [id number] Procedure Result Reported Site Clotest Final 02/01/19703 ML Clotest Negative * ML - Main Lab . END OF REPORT DEPARTMENT OF PATHOLOGY, [address] [place] [address] Joseph Calderon M.D. Director [facility] # [id number] SEE RESULT BELOW Name: CORA WHEELER : [address]: Porfirio Mora MD Acct: [id number] Unit: [id number] AGE: 63 Location: [facility] Re01/31/19 SEX: F Status: DEP REF SPEC: [id number] [place]: 01/31/19-[address] [facility] [address]: Porfirio Mora MD REQ: [id number] RECD: 01/31/19-1233 STATUS: LIV DINH DR: Ruthie Diaz MD _ ORDERED: LEVEL 4, IMMUNO-FIRST COMMENTS: [id number] ADDENDUM Addendum: Addendum: An immunohistochemical stain for [...] CONTINUED ON NEXT PAGE DEPARTMENT OF PATHOLOGY, [address] [place] [address] Joseph Calderon M.D. Director [facility] # [id number] RUN DATE: 02/02/19 [facility] LAB LIVE PAGE 2 Patient: CORA WHEELER [id number] (Continued) GROSS DESCRIPTION (Continued) GROSS DESCRIPTION The specimen is received in formalin labeled, Biopsy Gastric Erosion, and consists of two retana-pink irregular soft tissue fragments measuring 0.6 x 0.2 x 0.2 cm and 0.9 x 0.2 x 0.1 cm which are submitted entirely in one cassette. Signed by and Reported on: Rosaura Osborn MD 02/01/19 1522 END OF REPORT DEPARTMENT OF PATHOLOGY, [address] [place] [address] Joseph Calderon M.D. Director [facility] # [id number] Procedures Date Code Description Status 03/11/201988706 Inject/Drain Joint/Bursa Major W/O US Completed 01/31/2019 76736 Endoscopy Upper GI Biopsy Completed 12/10/201812495 Inject/Drain Joint/Bursa Major W/O US Completed 11/05/2017 62558373 Mammogram Completed 10/16/2016 34283338 Mammogram Completed 07/30/2015 38839941 Mammogram Completed 07/09/2015 01864408 Colonoscopy Completed 07/28/2014 44989780 Mammogram Completed 07/30/2012 85783712 Mammogram Completed 03/20/2011 11452279 Mammogram Completed 08/09/2010 78416237 Mammogram Completed 01/31/2010 [id number] Mammogram Completed 11/04/2004 30925442 Colonoscopy Completed 08/17/2001 455188899 Bone Mineral Density Test Completed Medical Devices Description No Information Available Encounters Type Date Location Provider Dx Diagnosis Office Visit 03/04/2019 [facility] Gastroenterology Porfirio Allred K44.9 Diaphragmatic 10:15a MD Morgan hernia without obstruction or gangrene Z87.11 Personal history of peptic ulcer disease E66.9 Obesity, unspecified M25.562 Pain in left knee M25.561 Pain in right knee Office Visit 12/24/2018 [facility] Gastroenterology Porfirio Allred K26.1 Acute duodenal 10:00a MD Morgan ulcer with perforation E66.9 Obesity, unspecified E03.9 Hypothyroidism, unspecified I10 Essential (primary) hypertension Office Visit 12/10/2018 11:15a [facility] Verenice Conti, M25.561 Pain in right at [place] M.D. knee M25.562 Pain in left knee M25.461 Effusion, right knee M25.462 Effusion, left knee M17.0 Bilateral primary osteoarthritis of knee Assessments Date Code Description Provider 05/27/2019 M25.562 Pain in left knee Verenice Conti M.D. 05/27/2019 M17.0 Bilateral primary osteoarthritis of knee Verenicejay Conti M.D. 03/11/2019 M25.562 Pain in left knee Verenice Conti M.D. 03/11/2019 M25.561 Pain in right knee Verenice Conti M.D. 03/11/2019 M17.0 Bilateral primary osteoarthritis of knee Verenice Conti M.D. 03/04/2019 K44.9 Diaphragmatic hernia without obstruction or Porfirio Mora MD gangrene 03/04/2019 Z87.11 Personal history of peptic ulcer disease Porfirio Mora MD 03/04/2019 E66.9 Obesity, unspecified Porfirio Mora MD 03/04/2019 M25.562 Pain in left knee Porfirio Mora MD 03/04/2019 M25.561 Pain in right knee Porfirio Mora MD 01/31/2019 K29.50 Unspecified [...] 12/10/2018 M25.562 Pain in left knee Verenice Gallito, M.D. 12/10/2018 M25.461 Effusion, right knee Verenice Conti M.D. 12/10/2018 M25.462 Effusion, left knee Verenice Conti M.D. 12/10/2018 M17.0 Bilateral primary osteoarthritis of knee Verenice Conti M.D. Plan of Treatment Future Appointment(s):06/20/2019 3:15 pm - Verenice Conti M.D. at [facility] at Apibom7206/09/2019 8:30 am - Ronn Pisano PA-C at [facility] at Cfdywl8406/09/2019 8:30 am - ESTELLA Valle at [facility] at Vqscto1805/31/2019 10:20 am - Ruthie Diaz M.D. at [facility] Internal Medicine - [facility]06/09/2019 8:30 am - Verenice Conti M.D. at [facility]05/27/2019 - Verenice Conti M.D.M25.562 Pain in left kneeFollow up:Follow up: 10-14 days [id number] Bilateral primary osteoarthritis of knee Functional Status Description No Information Available Mental Status Description No Information Available Referrals Description No Information Available
--- OUTSIDE RECORDS SUMMARY | 2019-06-09 07:14 | XMS REPORT | Continuity of Care Document ---
:1955 External Reference #:[id number] Author Name Verenice Conti M.D. (transmitted by agent of provider Honey Hooker) Address [address] [address] Problems Active Problems Provider Date Hyperlipidemia Ruthie [...] Amlodipine Besylate Take 1 Tablet 90tabs I10 Ruthie Jackson, 07/19/2012 2.5mg By Mouth Once M.D. Tablets Daily Wrist Brace/Suede 2units 782.0 [facility], 07/17/2011 Finish/Right And Left M.D. Misc Atorvastatin Calcium take 1 tablet 90tabs E78.2 Ruthie Jackson, 2010 40mg by mouth once M.D. Tablets daily Levothyroxine Sodium take 1 tablet 90tabs Ruthie [facility], 12/26/2009 175mcg by mouth once M.D. Tablets [...] CPT Code Status Date Vaccine Lot # [id number] Given 03/25/2019 Influenza Virus Vaccine, Quadrivalent, Split, Preservative Free 68931 Given 04/01/2018 Influenza Virus Vaccine, Quadrivalent, Split, Preservative Free 37509 Given 04/20/2017 Influenza Virus Vaccine, Quadrivalent, Split, Preservative Free Q2035 Given 03/31/2016 Afluria Vaccine Q2035 Given 04/23/2015 Afluria Vaccine 45609 Given 05/30/2014 Zoster (Zostavax) [id number] 64721 Given 05/30/2014 Tdap - Tetanus/Diptheria/Acellular Pertussis [id number] [...] Test Result H/L Range Note Inr/Protime 05/27/2019 [facility] Inr 1.03 Normal 0.82-1.[address] [place] [address] [phone] Laboratory test 05/27/2019 [facility] Partial 35.3 Normal 26.0 -38.[address] [place] [address] PTT [phone] CBC Auto Diff 05/27/2019 [facility] White Blood 7.4 10^3/uL Normal 3.5-10.[address] [place] [address] [phone] Red Blood Count 4.41 10^6/uL Normal 3.70-4.87 [...] Blood Cells % 0.1 Comp Metabolic 05/27/2019 [facility] Sodium 140 mmol/L Normal 135-145 Panel [address] [place] [address] [phone] Potassium 4.3 mmol/L Normal 3.5-5.0 Chloride 102 [...] 108.8 >60 2 Type & Screen 05/27/2019 [facility] Patient Blood Type O Negative [address] [place] [address] [phone] Antibody Screen NEGATIVE Urinalysis Profile 05/27/2019 [facility] Urine Color Yellow [address] [place] [address] [phone] Urine Appearance Clear Urine Specific [place] 1.009 Low 1.010-1.030 Urine pH 5.0 Normal 5-9 Urine Urobilinogen Negative Negative Urine Ketones Negative Negative Urine Protein Negative Negative Urine Leukocytes Negative Negative Urine Blood Negative Negative Urine Nitrite Negative Negative Urine Bilirubin Negative Negative Urine Glucose Negative Negative Urine Culture And 05/27/2019 [facility] Urine Culture SEE RESULT [address] [place] [address] [phone] Laboratory test 01/31/2019 [facility] Clotest SEE RESULT 4 , [address] [place] [address] [phone] Laboratory test 01/31/2019 [facility] Surgical SEE RESULT 6 , [address] [place] [address] [phone] 1 Standard intensity warfarin therapeutic range: 2.0-3.0 [...] dialysis) 3 SEE RESULT BELOW Name: CORA WHEELER : [address]: Verenice Conti MD Acct: [id number] Unit: [id number] AGE: 63 Location: [facility] Re05/27/19 SEX: F Status: REG REF SPEC: [id number] [place]: 05/27/19-[address]: Verenice Conti MD REQ: [id number] RECD: 05/27/19 STATUS:COMP HR DR: Ruthie Diaz MD _ SOURCE: URINE SPDESC: ORDERED: Urine Culture QUERIES: Urine Source: Random Procedure Result Reported Site Urine Culture Final 05/28/19- 112 ML No growth of clinically significant organisms * ML - Main Lab . END OF REPORT DEPARTMENT OF PATHOLOGY, [address] [place] [address] Joseph Calderon M.D. Director [facility] # [id number] SEE RESULT BELOW Name: CORA WHEELER : [address]: Porfirio Mora MD Acct: [id number] Unit: [id number] AGE: 63 Location: [facility] Re01/31/19 SEX: F Status: DEP REF SPEC: [id number] [place]: 01/31/19-[address]: Porfirio Mora MD REQ: [id number] RECD: 01/31/19 STATUS: ALLI DINH DR: Ruthie Diaz MD _ SOURCE: GAS ANTRUM SPDESC: ORDERED: Clotest COMMENTS: [id number] Procedure Result Reported Site Clotest Final 02/01/19- 703 ML Clotest Negative * - [facility] . END OF REPORT DEPARTMENT OF PATHOLOGY, [address] [place] [address] Joseph Calderon M.D. Director [facility] # [id number] 6 [id number] SEE RESULT BELOW Name: CORA WHEELER : [address]: Porfirio Mora MD Acct: [id number] Unit: [id number] AGE: 63 Location: [facility] Re01/31/19 SEX: F Status: DEP REF SPEC: [id number] [place]: 01/31/19-1055 [facility] DR: Porfirio Mora MD REQ: [id number] RECD: 01/31/19-1234 STATUS: LIV DINH DR: Ruthie Diaz MD _ ORDERED: LEVEL 4, IMMUNO-FIRST COMMENTS: [id number] ADDENDUM Addendum: Addendum: An immunohistochemical stain for [...] CONTINUED ON NEXT PAGE DEPARTMENT OF PATHOLOGY, [address] [place] [address] Joseph Calderon M.D. Director [facility] # [id number] RUN DATE: 02/02/19 [facility] LAB LIVE PAGE 2 Patient: CORA WHEELER [id number] (Continued) GROSS DESCRIPTION (Continued) GROSS DESCRIPTION The specimen is received in formalin labeled, Biopsy Gastric Erosion, and consists of two retana-pink irregular soft tissue fragments measuring 0.6 x 0.2 x 0.2 cm and 0.9 x 0.2 x 0.1 cm which are submitted entirely in one cassette. Signed by and Reported on: Rosaura Osborn MD 02/01/19 1522 END OF REPORT DEPARTMENT OF PATHOLOGY, [address] [place] [address] Joseph Calderon M.D. Director [facility] # [id number] Procedures Date Code Description Status 03/11/201952148 Inject/Drain Joint/Bursa Major W/O US Completed 01/31/2019 88046 Endoscopy Upper GI Biopsy Completed 12/17/201825892291 Mammogram Completed 12/10/201899838 Inject/Drain Joint/Bursa Major W/O US Completed 11/05/2017 [id number] Mammogram Completed 10/16/2016 84562269 Mammogram Completed 07/30/2015 [id number] Mammogram Completed 07/09/2015 [id number] Colonoscopy Completed 07/28/2014 [id number] Mammogram Completed 07/30/2012 [id number] Mammogram Completed 03/20/2011 62315417 Mammogram Completed 08/09/2010 [id number] Mammogram Completed 01/31/2010 [id number] Mammogram Completed 11/04/2004 19488483 Colonoscopy Completed 08/17/2001 336808141 Bone Mineral Density Test Completed Medical Devices Description No Information Available Encounters Type Date Location Provider Dx Diagnosis Office Visit 03/04/2019 [facility] Gastroenterology Porfirio lAlred K44.9 Diaphragmatic 10:15a MD Morgan hernia without obstruction or gangrene Z87.11 Personal history of peptic ulcer disease E66.9 Obesity, unspecified M25.562 Pain in left knee M25.561 Pain in right knee Office Visit 12/24/2018 [facility] Gastroenterology Porfirio Allred K26.1 Acute duodenal 10:00a MD Morgan ulcer with perforation E66.9 Obesity, unspecified E03.9 Hypothyroidism, unspecified I10 Essential (primary) hypertension Office Visit 12/10/2018 11:15a [facility] Verenice Conti, M25.561 Pain in right at [place] M.D. knee M25.562 Pain in left knee [...] Porfirio Mora MD 12/24/2018 E66.9 Obesity, unspecified Porfriio Mora MD 12/24/2018 E03.9 Hypothyroidism, unspecified Porfirio [...] 10:00 am - Ruthie Diaz M.D. at [facility] Internal Medicine - [facility]06/20/2019 3:15 pm - Verenice Conti M.D. at [facility] at Lgrfhm2206/09/2019 8:30 am - Ronn Pisano PA-C at [facility] at Wxzqvn6006/09/2019 8:30 am - ESTELLA Valle at [facility] at Jiyuxr0606/09/2019 8:30 am - Verenice Conti M.D. at [facility] at Nqkuye6105/27/2019 - Verenice Conti M.D.M25.562 Pain in left kneeFollow up:Follow up: 10-14 days mxgdgeO36.0 Bilateral primary osteoarthritis of knee Functional Status Description No Information Available Mental Status Description No Information Available Referrals Description No Information Available
[2019-06-09] MEDS ORDERED: Midazolam* 1 MG/ML 2 ML VIAL (2 MG) ONE ×2 (08:07→10:18)
[2019-06-09] MEDS ORDERED: ROPIVACAINE 5 MG/ML 30 ML BTL (0.5%) ONE ×2 (08:07→09:49)
[2019-06-09] MEDS ORDERED: Dexmedetomidine* 200 MCG/2 ML 2 ML VIAL ONE (08:07)
[2019-06-09] MEDS ORDERED: fentaNYL* 50 MCG/ML 2 ML VIAL (100 MCG VIAL) ONE (08:07)
[2019-06-09] MEDS ORDERED: Propofol* 10 MG/ML 20 ML BTL ONE (08:11)
[2019-06-09] MEDS ORDERED: Lidocaine 2% PF * 5 ML VIAL ONE ×2 (08:11→09:45)
[2019-06-09] MEDS ORDERED: Acetaminophen TAB* 325 MG ONE (09:06)
[2019-06-09] MEDS ORDERED: ceFAZolin 2 GM in NS PREMIX(*) 2 GM/100 ML BAG IVPB ONE (09:06)
[2019-06-09] MEDS ORDERED: Propofol* 500 MG/50 ML BTL ONE (09:44)
[2019-06-09] MEDS ORDERED: KETAMINE HCL* 50 MG/ML 10 ML VIAL ONE (09:44)
[2019-06-09] MEDS ORDERED: Bupivacaine 0.5% SDV PF* 30ML VIAL ONE (09:45)
[2019-06-09] MEDS ORDERED: Rocuronium* 10 MG/ML VIAL ONE ×2 (10:35→11:08)
[2019-06-09] MEDS ORDERED: methylPREDNISolone ACETATE 80* 80 MG/ML 1 ML VIAL ONE (10:39)
[2019-06-09] MEDS ORDERED: hydrALAZINE IV* 20 MG/ML VIAL ONE ×2 (11:08)
[2019-06-09] MEDS ORDERED: Remifentanil* 2 MG VIAL ONE (11:08)
[2019-06-09] MEDS ORDERED: Propofol* 200 ML ONE (11:15)
[2019-06-09] MEDS ORDERED: Dexamethasone IV* 4 MG/ML 1 ML (4 MG) ONE (11:20)
[2019-06-09] MEDS ORDERED: Naloxone* 0.4 MG/ML 1 ML VIAL IV PRN (11:50)
[2019-06-09] MEDS ORDERED: oxyCODONE TAB* 5 MG TAB PO PRN (11:50)
[2019-06-09] MEDS ORDERED: DiMENhydriNATE IV* 50 MG/ML VIAL IV PUSH PRN (11:50)
[2019-06-09] MEDS ORDERED: Sugammadex * 200 MG/2 ML VIAL IV PUSH ONE (12:18)
[2019-06-09] MEDS ORDERED: Ondansetron INJ* 2 MG/ML VIAL ONE (12:19)
[2019-06-09] MEDS ORDERED: Metoclopramide IV* 5 MG/ML 2 ML VIAL ONE (12:19)
[2019-06-09] MEDS ORDERED: HYDROmorphone INJ1* 1 MG/ML SYRINGE ONE ×2 (12:20→14:33)
[2019-06-09] MEDS ORDERED: Ondansetron ODT TAB* 4 MG PO PRN (13:22)
[2019-06-09] MEDS ORDERED: oxyCODONE/Acetamin 5/325 MG* TAB PO PRN (13:22)
[2019-06-09] MEDS ORDERED: Acetaminophen TAB* 325 MG PO PRN (13:22)
[2019-06-09] MEDS ORDERED: Magnesium Hydroxide LIQ* 30 ML UDC PO PRN (13:22)
[2019-06-09] MEDS ORDERED: diPHENhydraMINE IV* 50 MG/ML 1 ml VIAL (BENADRYL) IV PRN (13:22)
[2019-06-09] MEDS ORDERED: Ondansetron INJ* 2 MG/ML VIAL IV PRN (13:22)
[2019-06-09] MEDS ORDERED: Morphine INJ* 2 MG/ML 1 ML SYRINGE (TWO MG - NEW SYRINGE VERSION) IV PRN (13:22)
[2019-06-09] MEDS ORDERED: diPHENhydraMINE PO* 25 MG PO PRN (13:22)
[2019-06-09] MEDS ORDERED: Labetalol IV* 5 MG/ML 20 ML VIAL ONE (13:43)
[2019-06-09] MEDS ORDERED: oxyCODONE TAB* 5 MG TAB ONE (14:33)
[2019-06-09] MEDS: Losartan TAB* 25 MG PO SCH (14:37)
[2019-06-09] MEDS: HYDROmorphone INJ1* 1 MG/ML SYRINGE IV PRN ×2 (14:38→14:57)
--- NOTE | 2019-06-09 15:32 | PN ---
Progress Note - Progress Note Date of Service: 06/09/19 Note: resting comfortably in recovery, pain well controlled; able to DF/PF, 2+ DP pulse and intact sensation
[2019-06-09] MEDS: Lactated Ringers 1000 ML Bag* 1,000 ML IV SCH (16:00)
--- NOTE | 2019-06-09 16:04 | CONS ---
CC: Dr. Conti; Dr. Diaz * CONSULTATION REPORT: DATE OF CONSULT: 06/09/19 PRIMARY CARE PROVIDER: Dr. Diaz. REQUESTING PHYSICIAN: Dr. Conti from Orthopedic Surgery. REASON FOR CONSULT: Perioperative management of this patient with hypertension. CHIEF COMPLAINT: Left knee pain. HISTORY OF PRESENT ILLNESS: Ariadne Khanna is a 63-year-old female with history of hypertension, obesity, obstructive sleep apnea, who presented to [facility] and is currently status post elective left knee replacement performed by Dr. Conti today. The patient complains of postoperative left knee pain. She stated that she had general anesthesia. She denies any shortness of breath. For her blood pressure today, she did not take the losartan in the morning and her systolic pressures had been in the 170s postoperatively. A consultation was requested in regards to medical management of hypertension. PAST MEDICAL HISTORY: 1. Hypertension. 2. History of knee osteoarthritis. 3. 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 4. Dyslipidemia. 5. Peptic ulcer disease with hospitalization in October of 2018 for perforated ulcer. PAST SURGICAL HISTORY: 1. Status post cyst excision at the age of 10. 2. History of tubal ligation. 3. Cholecystectomy in the year of 1999. 4. Cataract surgery. 5. Ankle surgery, ORIF of the right ankle in the year of 1999. 6. Tonsillectomy in 1957. MEDICATIONS AT HOME: Include: 1. Timolol 1 drop both eyes q.a.m. 2. [place]-3 fatty acids 2000 mg daily. 3. Multivitamin 1 tablet daily. 4. Lotemax 0.5% ophthalmic solution 1 drop both eyes at 6 p.m. 5. Losartan 50 mg daily. 6. Amlodipine 2.5 mg daily. 7. Aldactone 12.5 mg daily. 8. Omeprazole 40 mg daily. 9. Synthroid 175 mcg daily. 10. Atorvastatin 40 mg daily. ALLERGIES: ADHESIVE TAPE and MEPERIDINE. FAMILY HISTORY: Positive for father with history of heart disease who at the age of 55 due to heart disease and mother with history of cerebral aneurysm and at the age of 50. SOCIAL HISTORY: The patient is retired. Quit smoking at the age of 29. She denies any alcohol or drug use. Her surrogate is her , Gonzalo. The patient is a full code. REVIEW OF SYSTEMS: Please see history of present illness. All the remaining 12 systems were reviewed with the patient and were otherwise negative. PHYSICAL EXAM: Blood pressure of 173/102, heart rate of 68 and regular, respiratory rate 16, oxygen saturation 93% on room air, temperature of 97.5. General: The patient is a pleasant 63-year-old female, who is in no acute distress. Alert, awake, and oriented x3. HEENT: Head: Atraumatic, normocephalic. Eyes: Pupils are equal, reactive to light and accommodation. Oropharynx is clear. Mucosa moist. Neck: Supple. No JVD. No bruits bilaterally. Cardiovascular: Regular rate and rhythm. No murmur. Respiratory : Clear to auscultation bilaterally. Abdomen is soft, nontender. Bowel sounds are present in all 4 quadrants. Extremities: The patient's left knee is in postoperative dressing with a Cryo unit in place. Both feet have no pedal edema. Pulses are 2+ bilaterally. There is no clubbing or cyanosis. On neuro evaluation, speech is clear. Cranial nerves II through XII grossly intact. Motor strength is 5/5 bilaterally with limited range of motion due to postoperative dressings on the left knee. Psychiatric Evaluation: Oriented x3 with no evidence of anxiety or depression. LABORATORY DATA: None currently. ASSESSMENT AND PLAN: 1. For postoperative management of this patient status post left knee replacement, as per Dr. Conti the patient was already placed on Eliquis postoperatively. 2. In regards to the patient's hypertension management, the patient is to be continued on amlodipine, losartan, and spironolactone. She was already placed on losartan first dose today. I suspect her blood pressure increase is now related to her pain postoperatively. 3. For her hypothyroidism, her Synthroid is going to be continued at outpatient dose. 4. For obstructive sleep apnea, the patient was started on CPAP for the past 1 week and we will continue CPAP as tolerated. 5. For DVT prophylaxis, the patient is going to be placed on Eliquis as per primary service. 6. The patient's code status is full. Her surrogate is her . TIME SPENT: Approximately 62 minutes was spent on consultation of this patient , more than half that time was spent [id number] with the patient during the interview and physical exam. Thank you very much for allowing our service to see the patient in consultation. We will follow tomorrow. [id number]/CPS #: [id number] TANYA
[2019-06-09] MEDS: oxyCODONE/Acetamin 5/325 MG* TAB PO PRN (16:52)
[2019-06-09] MEDS: Cyclobenzaprine TAB* 10 MG PO PRN (18:22)
[2019-06-09] MEDS: PTO:Loteprednol 0.5% OPH.SUSP(NF) 5 ML BTL BOTH EYES SCH (18:23)
[2019-06-09] MEDS: ceFAZolin 1 GM ADVAN(*) 1 GM in NS 0.9% 50 ML* 50 ML IVPB SCH (18:24)
--- NOTE | 2019-06-09 19:33 | OP ---
Operative Report - Blank - Operative Report Date of Operation: 06/09/19 Note: CORA WHEELER 1955 Date of Surgery: 06/09/19 Verenice Conti MD Restaurant Assistant: Allen SORIA did help throughout the procedure with preparation of the knee, wound retraction, manipulation of the knee, and wound closure. Anesthesiologist: Allen Teixeira MD Anesthesia Type: Spinal Preoperative Diagnosis: Left severe degenerative osteoarthritis of the knee Postoperative Diagnosis: As above Procedure Performed: 1 -Left Total Knee Arthroplasty 2 - Right Knee injection of Steroid under Anesthesia Tourniquet time: 60 minutes Complications: None Specimen: Bone and cartilage from the left knee joint sent to pathology. Hardware Used: Cemented Mosher [employer] Nephew total knee hardware was used - For the femur a size 6 narrow left oxinium legion posterior stabilized femoral component , for the tibia a size 5 left luigi II tibial baseplate, for the insert a size 11mm 5-6 posterior stabilized articular polyethylene insert, and for the patella a size 32 3-peg all poly patella. The InSequent Robotic Navigation system was used. Brief History/Indication: CORA WHEELER was known in clinic and had a history of severe left knee pain and swelling. She failed conservative treatment with anti-inflammatories, pain pills, intra-articular injections and physical therapy. She elected to undergo left total knee arthroplasty due to continued pain and decreased quality of life. Radiographs showed severe end stage osteoarthritis of the knee with bone on bone contact. Informed consent was obtained from the patient. She understood the risks of surgery included but were not limited to: bleeding, infection, damage to nearby structures, intraoperative fracture, nerve palsy, failure of the hardware, early loosening, knee stiffness or loss of motion, anesthesia complications, stroke, heart attack , blood clot and . She wished to proceed. She also requested that I inject her right knee with steroid while she was under anesthesia. Intra-Operative Findings: Intraoperatively the patient was noted to have severe loss of cartilage in all 3 compartments of the knee. Description of the Procedure: CORA WHEELER was identified in the preanesthesia unit. Her left knee was marked as the correct operative side. Informed consent was signed and placed in the chart. The patient was taken to the operating room and placed under anesthesia without complication. A gillis catheter was placed. A tourniquet was placed on the left thigh. The left lower extremity was prepped and draped in the usual sterile fashion. Preoperative time-out was made to correctly identify the patient, side and site. Appropriate intraoperative antibiotics were given within one hour of incision. Tourniquet was inflated. A midline incision was made and carried sharply down to the extensor mechanism. A new 10 blade was used to make a standard medial parapatellar arthrotomy. The patella was subluxed laterally. Electrocautery was used to dissect soft tissue off the superomedial tibia to the midsagittal plane. The knee was flexed up. The anterior horn of the lateral meniscus and the ACL/PCL were sharply incised. The two checkpoint screws and the 4 pins were placed. The arrays were placed on the pins and the anatomy of the knee was mapped using the InSequent navigation system. The hardware sizes and placement was chosen using the InSequent system. The InSequent robotic juan carlos was used to make the distal femoral cut. The size 6 multi-cutting jig was pinned on the distal femur. The oscillating saw was used to make the appropriate 4 chamfer cuts. Next the PCL was completely released. The extramedullary tibial cutting guide was pinned on the proximal tibia and the cutting angle was chosen using the Navio angle guide. The oscillating saw was used to make the proximal tibial cut perpendicular to the mechanical axis of the tibia. The bone was carefully removed. The knee was brought out into full extension. The spacer block was placed and had excellent fit with the knee in full extension. The medial and lateral ligaments were well balanced. The flexion and extension gaps were well balanced. The knee was flexed up. Lamina tire builder was placed both medially and laterally. Any remaining meniscus was removed with electrocautery. Curved osteotome was used to remove any posterior osteophytes. The tibial tray and drop chuy were placed and confirmed a satisfactory tibial cut. The size 6 left narrow femoral trial was impacted onto the distal femur. This trial had excellent fit and stability. The box for the posterior stabilized implant was prepared using a box cut osteotome and a reamer. Next a tibial tray trial and 9 mm insert trial was placed. The knee was taken through a range of motion and had full extension to 130 degrees of flexion. Patellofemoral tracking was satisfactory. The final checkpoints were collected using the Navio and the two screws/four pins were removed without complication. The patella was inverted and sized to a size 32. Three peg holes were drilled through the size 32 drill guide. The trial patella was placed and the knee was taken through a range of motion. There was satisfactory patellofemoral tracking. All trials were removed. The tibia was subluxed anteriorly and sized to a size 5. The proximal tibial was prepared with a size 5 keel punch. All bony cut surfaces were irrigated with sterile saline and dried. Final implants were cemented into place starting with the tibia, followed by the femur, and last the patella. A 11 mm insert trial was placed and the knee was brought into full extension. Tourniquet was turned down and the knee was copiously irrigated with sterile saline. Electrocautery was used to obtain meticulous hemostasis. Once the cement had fully cured, the insert trial was removed. Any excess cement was removed from around the hardware and capsule. Final insert chosen was a 11 mm posterior stabilized Luigi II articular insert size 5-6. Stability of the insert was checked and noted to be stable. The extensor mechanism was closed using number 1 vicryls. The rest of the incision was closed in a layered fashion using 0 and 2-0 vicryls. The skin was closed using 3-0 nylon suture. Sterile xeroform, 4x4s and webril were used to cover the incision. Dani wrap and cold pack were used to cover the dressings. The right knee was sterilly prepped with betadine. 80 mg depomedrol and 4 cc 1/ 2% ropivucaine were injected into the right knee joint. A dressing was applied. The patients anesthesia was reversed without difficulty. She was taken to the PACU in stable condition. Intended weight-bearing will be as tolerated.
[2019-06-09] MEDS: Docusate CAP* 100 MG PO SCH (21:59)
[2019-06-09] MEDS: Magnesium Hydroxide LIQ* 30 ML UDC PO SCH (21:59)
[2019-06-09] MEDS: oxyCODONE TAB* 5 MG TAB PO PRN (21:59)
[2019-06-10] MEDS: oxyCODONE/Acetamin 5/325 MG* TAB PO PRN ×5 (00:33→21:41)
[2019-06-10] MEDS: Cyclobenzaprine TAB* 10 MG PO PRN ×4 (00:34→21:41)
[2019-06-10] MEDS: ceFAZolin 1 GM ADVAN(*) 1 GM in NS 0.9% 50 ML* 50 ML IVPB SCH ×2 (02:26→09:53)
[2019-06-10] MEDS: Lactated Ringers 1000 ML Bag* 1,000 ML IV SCH (03:23)
[2019-06-10 05:53] LABS: Hematocrit 38 % (35-47); Platelet Count 246 10^3/uL (150-450)
[2019-06-10 06:12] LABS: BUN/Creatinine Ratio 17.9 (8-20); EGFR African American 106.9 (>60); EGFR Non-African American 88.3 (>60); Potassium 4.4 mmol/L (3.5-5.0)
[2019-06-10] MEDS: Levothyroxine TAB* 175 MCG TAB PO SCH (06:12)
--- NOTE | 2019-06-10 08:10 | PN ---
Subjective Date of Service: 06/10/19 Interval History: Pt feels well, has not walked today with PT yet. Post op pain controlled Objective Active Medications: Acetaminophen (Tylenol Tab*) 650 mg PO Q8HR PRN PRN Reason: MILD PAIN or TEMP > 100.4 Amlodipine Besylate (Norvasc Tab*) 2.5 mg PO QAM [facility] Apixaban (Eliquis*) 2.5 mg PO BID [facility] Atorvastatin Calcium (Lipitor*) 40 mg PO QAM [facility] Bisacodyl (Dulcolax Supp*) 10 mg [place] DAILY PRN PRN Reason: CONSTIPATION Cyclobenzaprine HCl (Flexeril Tab*) 10 mg PO Q6H PRN PRN Reason: SPASMS Last Admin: 06/10/19 06:12 Dose: 10 mg Diphenhydramine HCl (Benadryl Iv*) 25 mg IV Q6H PRN PRN Reason: PRURITIS Diphenhydramine HCl (Benadryl Po*) 25 mg PO Q6H PRN PRN Reason: PRURITIS Docusate Sodium (Colace Cap*) 100 mg PO BID [facility] Last Admin: 06/09/19 21:59 Dose: 100 mg Cefazolin Sodium 1 gm/ Sodium (Chloride) 50 mls @ 200 mls/hr IVPB Q8H [facility] Stop: 06/10/19 10:14 Last Admin: 06/10/19 02:26 Dose: 200 mls/hr Lactated Ringer's (Lactated Ringers 1000 Ml Bag*) 1,000 mls @ 100 mls/hr IV PER RATE [facility] Last Admin: 06/10/19 03:23 Dose: 100 mls/hr Lactulose (Lactulose*) 30 ml PO BID PRN PRN Reason: CONSTIPATION Levothyroxine Sodium (Synthroid Tab*) 175 mcg PO 0600 [facility] Last Admin: 06/10/19 06:12 Dose: 175 mcg Losartan Potassium (Cozaar Tab*) 50 mg PO DAILY [facility] Last Admin: 06/09/19 14:37 Dose: 50 mg Loteprednol Etabonate (Lotemax 0.5% Oph.Susp (Nf)) 1 drop BOTH EYES 1800 [facility] Last Admin: 06/09/19 18:23 Dose: 1 drop Magnesium Hydroxide (Milk Of Magnesia Liq*) 30 ml PO BID [facility] Last Admin: 06/09/19 21:59 Dose: 30 ml Magnesium Hydroxide (Milk Of Magnesia Liq*) 30 ml PO Q6H PRN PRN Reason: CONSTIPATION Morphine Sulfate (Morphine Inj (Syringe))*) 2 mg IV Q4H PRN PRN Reason: Pain - Unrelieved Multivitamins (Theragran Tab*) 1 tab PO DAILY [facility] Ondansetron HCl (Zofran Inj*) 4 mg IV Q6H PRN PRN Reason: NAUSEA Ondansetron HCl (Zofran Odt Tab*) 4 mg PO Q6H PRN PRN Reason: NAUSEA Oxycodone HCl (Roxycodone Tab*) 10 mg PO Q4H PRN PRN Reason: Pain - Breakthrough Last Admin: 06/09/19 21:59 Dose: 10 mg Oxycodone/Acetaminophen (Percocet 5/325 Tab*) 1 tab PO Q4H PRN PRN Reason: PAIN - MODERATE Oxycodone/Acetaminophen (Percocet 5/325 Tab*) 2 tab PO Q4H PRN PRN Reason: PAIN - SEVERE Last Admin: 06/10/19 06:13 Dose: 2 tab Pantoprazole Sodium (Protonix Tab*) 40 mg PO DAILY [facility] Spironolactone (Aldactone Tab*) 12.5 mg PO QAM [facility] Timolol Maleate (Timoptic 0.5% Opth*) 1 drop BOTH EYES QAM [facility] Vital Signs - 8 hr 06/10/19 06/10/19 06/10/19 00:09 00:33 00:34 Temperature 97.9 F Pulse Rate 69 Respiratory 16 18 18 Rate Blood Pressure 146/69 (mmHg) O2 Sat by Pulse 96 Oximetry 06/10/19 06/10/19 06/10/19 00:37 03:15 03:58 Temperature 97.7 F Pulse Rate 70 Respiratory 18 16 18 Rate Blood Pressure 141/65 (mmHg) O2 Sat by Pulse 96 Oximetry 06/10/19 06/10/19 06/10/19 03:59 05:00 06:12 Temperature Pulse Rate Respiratory 18 18 Rate Blood Pressure (mmHg) O2 Sat by Pulse 96 Oximetry 06/10/19 06/10/19 06:13 07:50 Temperature 98.4 F Pulse Rate 64 Respiratory 18 16 Rate Blood Pressure 137/61 (mmHg) O2 Sat by Pulse 92 Oximetry Oxygen Devices in Use Now: None Appearance: 63 yo F in nAD, AAOx3 Eyes: No Scleral Icterus, PERRLA Ears/Nose/Mouth/Throat: NL Teeth, Lips, Gums, Mucous Membranes Moist Neck: NL Appearance and Movements; NL JVP, Trachea Midline Respiratory: Symmetrical Chest Expansion and Respiratory Effort, Clear to Auscultation Cardiovascular: NL Sounds; No Murmurs; No JVD, RRR Abdominal: NL Sounds; No Tenderness; No Distention Lymphatic: No Cervical Adenopathy Extremities: No Clubbing, Cyanosis, - - mild r knee edema, L knee in post op dressings and cryo unit Skin: No Nodules or Sclerosis Neurological: Alert and Oriented x 3, NL Muscle Strength and Tone Result Diagrams: 06/10/19 05:31 06/10/19 05:31 Assess/Plan/Problems-Billing Assessment: 63 yo F with h/o HTN s/p elective left knee replacement on 06/09/19 - Patient Problems (1) Knee joint replacement status Comment: post op management as per ortho (2) Hypothyroidism Comment: - Continue PO Levothyroxine. (3) Hypertension Comment: - improving. - Continue Amlodipine, Aldactone, Losartan. (4) DVT prophylaxis Comment: Eliquis Status and Disposition: Medicine consult, will sign off. Thank you for the consult, please call if needed
[2019-06-10] MEDS: Atorvastatin* 40 MG TAB PO SCH (08:47)
[2019-06-10] MEDS: PTO:Timolol 0.5% OPTH.SOL* BTL BOTH EYES SCH (08:47)
[2019-06-10] MEDS: oxyCODONE TAB* 5 MG TAB PO PRN ×2 (08:48→17:20)
[2019-06-10] MEDS: amLODIPine TAB* 5 MG PO SCH (08:48)
[2019-06-10] MEDS: Losartan TAB* 25 MG PO SCH (08:49)
[2019-06-10] MEDS: Apixaban* 2.5 MG TAB PO SCH ×2 (08:49→21:41)
[2019-06-10] MEDS: Spironolactone TAB* 25 MG PO SCH (08:49)
[2019-06-10] MEDS: Magnesium Hydroxide LIQ* 30 ML UDC PO SCH ×2 (08:50→21:41)
[2019-06-10] MEDS: Pantoprazole TAB * 40 MG TAB PO SCH (08:50)
[2019-06-10] MEDS: Vitamin THERAPEUTIC TAB PO SCH (08:51)
[2019-06-10] MEDS: Docusate CAP* 100 MG PO SCH ×2 (08:51→21:41)
--- NOTE | 2019-06-10 13:35 | PN ---
Progress Note - Progress Note Date of Service: 06/10/19 SOAP: Subjective: [Pt doing well. Seen today sitting up in chair. No complaints. Has been able to get up with PT today. Denies any chest pain, SOB, Nausea or vomiting. ] Objective: [General: Pt is alert and oriented x3. NAD MSK, LLE: Dressing is c/d/i. NVI. Calf soft and non tender. +df/pf. 2+ PT] Vital Signs Temp 97.8 F 06/10/19 13:00 Pulse 65 06/10/19 13:00 Resp 18 06/10/19 13:25 BP 147/77 06/10/19 13:00 Pulse Ox 100 06/10/19 13:00 Intake & Output 06/09/19 06/10/19 06/10/19 18:59 06:59 18:59 Intake Total 1600 3089 Output Total 175 4300 Balance 1425 -1211 Weight 267 lb 9.6 oz Intake: IV Fluids 1600 1379 ABX - CEFAZOLIN 60 LR 1500 1319 NS 100ML, Cefazolin 2G 100 IVPB 110 ABX - CEFAZOLIN 110 Oral 1600 Output: Rios 175 4300 Other: Estimated Void Large Assessment: [POD 1 LTKA ] Plan: [Continue with current pain medication Continue with P/OT Pt would like to stay a night, she will discharge tomorrow morning.]
[2019-06-10] MEDS: PTO:Loteprednol 0.5% OPH.SUSP(NF) 5 ML BTL BOTH EYES SCH (17:19)
[2019-06-11] MEDS: Levothyroxine TAB* 175 MCG TAB PO SCH (05:32)
[2019-06-11 07:24] LABS: Hematocrit 34 % (35-47); Hemoglobin 11.8 g/dL (12.0-16.0); Mean Platelet Volume 8.2 fL (7.4-10.4); Platelet Count 221 10^3/uL (150-450)
--- NOTE | 2019-06-11 07:36 | PN ---
Progress Note - Progress Note Date of Service: 06/11/19 SOAP: Subjective: Pt. is alert, nad. Moderate pain left knee. Objective: Vital Signs: Temp Pulse Resp BP Pulse Ox 98.0 F 65 18 157/97 98 06/11/19 03:46 06/11/19 03:46 06/11/19 03:46 06/11/19 03:46 06/11/19 03:46 Laboratory Results - last 24 hr 06/11/19 07:00 Hgb 11.8 L Hct 34 L Plt Count 221 MPV 8.2 LLE - dressing changed, inc c/d/i. distally nvi. mod swelling. Assessment: 63 yo F pod 2 s/p ltka Plan: wbat lle pt eliquis plan d/c to home with vns today.
[2019-06-11] MEDS: Cyclobenzaprine TAB* 10 MG PO PRN (07:49)
[2019-06-11] MEDS: Atorvastatin* 40 MG TAB PO SCH (07:49)
[2019-06-11] MEDS: Docusate CAP* 100 MG PO SCH (07:49)
[2019-06-11 07:50] VITALS: BP 153/72
[2019-06-11] MEDS: Vitamin THERAPEUTIC TAB PO SCH (07:50)
[2019-06-11] MEDS: Pantoprazole TAB * 40 MG TAB PO SCH (07:50)
[2019-06-11] MEDS: Spironolactone TAB* 25 MG PO SCH (07:50)
[2019-06-11] MEDS: Losartan TAB* 25 MG PO SCH (07:51)
[2019-06-11] MEDS: amLODIPine TAB* 5 MG PO SCH (07:51)
[2019-06-11] MEDS: Apixaban* 2.5 MG TAB PO SCH (07:51)
[2019-06-11] MEDS: PTO:Timolol 0.5% OPTH.SOL* BTL BOTH EYES SCH (07:52)
[2019-06-11] MEDS: Magnesium Hydroxide LIQ* 30 ML UDC PO SCH (07:52)
[2019-06-11] MEDS: oxyCODONE TAB* 5 MG TAB PO PRN (11:05)
[2019-06-11] MEDS ORDERED: Bisacodyl SUPP* 10 MG SUPP PR PRN (13:22)
--- NOTE | 2019-06-11 17:56 | DS ---
Orthopedic Discharge Summary - Discharge Summary Date of service: 06/11/19 Date of Admission:06/09/19 Date of Discharge: [06/11/19] Date of Surgery: [06/09/19] Attending Orthopedic Provider: [Dr. Conti] Pre-operative Diagnosis: [Left knee OA] Operative Procedure: [Left total knee arthroplasty] Disposition of Patient: [Home with outpatient PT] Condition of Patient: [Stable] History: CORA WHEELER is a 63 year old F with years of increasingly severe [left knee] pain. Patient has failed conservative management and has elected to undergo a [left] total [knee] replacement Hospital Course: CORA was admitted to [facility] on 06/09/19. Patient underwent a [left total knee arthroplasty] without complication followed by a brief recovery in PACU and transfer to the Short Stay Surgical Unit in stable condition. Our hospitalist service, physical therapy and occupational therapy also participated in this patients care. Post-op day 1: patient was alert and in no acute distress. Dressing was clean, dry and intact. Operative extremity dorsiflexion and plantarflexion intact, sensation intact to light touch distally, DP2+. Post-op day two: dressing was changed, incision was clean, dry and intact. Patient was deemed to be medically and orthopedically stable for discharge to home with outpatient PT. Physical therapy goals were met. Home Medications Medication Instructions Recorded Confirmed Type Atorvastatin* [Lipitor 40 MG*] 40 mg PO QAM 02/15/14 06/09/19 History Spironolactone TAB* [Aldactone TAB 12.5 mg PO QAM 02/15/14 06/09/19 History 25 MG*] amLODIPine TAB* [Norvasc 5 mg TAB*] 2.5 mg PO QAM 02/15/14 06/09/19 History Levothyroxine TAB* [Synthroid TAB*] 175 mcg PO QAM 11/12/18 06/09/19 History Losartan Potassium [Cozaar] 50 mg PO QAM 11/12/18 06/09/19 History Loteprednol 0.5% OPH.SUSP(NF) 1 drop BOTH EYES 1800 12/29/18 06/09/19 History [Lotemax 0.5% OPH.SUSP (NF)] Omeprazole 40 mg PO QAM 12/29/18 06/09/19 History Timolol 0.5% OPTH.DAKOTA* [Timoptic 1 drop BOTH EYES QAM 12/29/18 06/09/19 History 0.5% Opth*] Multivitamin [Once Daily] 1 each PO QAM 05/27/19 06/09/19 History [place]-3/Dha/Epa/Fish Oil [Fish Oil 2,000 mg PO QAM 05/27/19 06/09/19 History 1,000 mg Softgel] Apixaban* [Eliquis*] 2.5 mg PO BID tab 06/11/19 Rx Cyclobenzaprine TAB* [Flexeril 10 10 mg PO Q6H PRN tab 06/11/19 Rx MG TAB*] Docusate CAP* [Colace Cap*] 100 mg PO BID cap 06/11/19 Rx oxyCODONE/Acetamin 5/325 MG* 1 tab PO Q4H PRN tab MDD 10 06/11/19 Rx [Percocet 5/325 TAB*] oxyCODONE/Acetamin 5/325 MG* 2 tab PO Q4H PRN tab MDD 10 06/11/19 Rx [Percocet 5/325 TAB*] Discharge Instructions following Orthopedic Surgery: Activity: * Weight Bearing as tolerated * Continue physical therapy and occupational therapy exercises as shown Wound care: * OK to shower on post-op day 3, no bathing, swimming, or submerging wound. * Use gentle soap, pat dry. Cover with gauze, BETZAIDA wrap or tape. Daily dressing changes Call Orthopedic office for: * Increased drainage * Redness * Increased pain * Fever Go to ER with shortness of breath or chest pain. Diet: * Regular diet * Increase fluids and fiber to prevent constipation. * Continue to use stool softeners, call office if no bowel motion within 48 hours. Medications See Home Medication List in your packet for medications that you should take after discharge. DVT Prophylaxis: Eliquis Dosin.5 mg, 1 tab every 12 hours x 30 days Pain Control: Percocet Dosin/325 mg 1-2 tabs by mouth every 4-6 hours as needed for pain. Maximum of 10 tabs per day. Please note that Percocet contains Tylenol (acetaminophen). Maximum daily dose of Tylenol is 4000 mg from all sources. Cyclobenzaprine 10 mg 1 tab every 8 hours as needed muscle spasm or pain Antibiotics are required prior to any dental work. FOLLOW UP: Follow up with [Gallito] Within 10-14 days, call for appointment Please call our office with any questions or concerns ([phone]) RX to [facility]
== END 2019-06-11 11:45 | disposition home or self-care (01) | DRG 470 ==
LOC: AA 07:12 → SSU 13:22
PROVIDERS: ADMIT Orthopaedic Surgery Adult Reconstructive Orthopaedic Surgery; ATTEND Orthopaedic Surgery Adult Reconstructive Orthopaedic Surgery
PROC: 3E0U33Z Introduction of Anti-inflammatory into Joints, Percutaneous Approach (ICD-10-PCS; 2019-06-09)
PROC: 0SRD069 Replacement of Left Knee Joint with Oxidized Zirconium on Polyethylene Synthetic Substitute, Cemented, Open Approach (ICD-10-PCS; principal; 2019-06-09 10:00)
DX: M17.0 Bilateral primary osteoarthritis of knee (principal); I10 Essential (primary) hypertension; E66.9 Obesity, unspecified; G47.33 Obstructive sleep apnea (adult) (pediatric); E03.9 Hypothyroidism, unspecified; E78.5 Hyperlipidemia, unspecified; M25.762 Osteophyte, left knee; E78.00 Pure hypercholesterolemia, unspecified; K21.9 Gastro-esophageal reflux disease without esophagitis; Z85.828 Personal history of other malignant neoplasm of skin; Z94.7 Corneal transplant status; Z79.899 Other long term (current) drug therapy; Z68.42 Body mass index [BMI] 45.0-49.9, adult; Z79.890 Hormone replacement therapy; Z87.11 Personal history of peptic ulcer disease; Z88.8 Allergy status to other drugs, medicaments and biological substances; Z91.048 Other nonmedicinal substance allergy status; Z87.891 Personal history of nicotine dependence; Z88.6 Allergy status to analgesic agent
CPT/HCPCS: 36415; 80048; 85014; 85018; 85049; A9270-GY; C1776; G8978-GP-CK; G8979-GP-CI; G8987-GO-CJ; G8988-GO-CJ; G8989-GO-CJ; J0360; J0690; J1040; J1100; J1170; J2250; J2405; J2704; J2765; J2795; J3010; J3490

== ENCOUNTER 2020-01-05 08:43 | Observation (INO) ==
[~2020-01-05 08:43] MED LIST changes: -Acetaminophen TAB* 325 MG PO ONE; -Buffered Lidocaine 1% SYRIN* 1 ML/SYRINGE INTRADERM ONE; -Lactated Ringers 1000 ML Bag* 1,000 ML IV SCH; +Lactated Ringers 1000 ml BAG 1,000 ML IV SCH; -Tranexamic Acid 1,000 MG in NS 0.9% 50 ML* (outpatient use) IV SCH
[2020-01-05] MEDS ORDERED: ceFAZolin 2 GM PREMIX in ORs 2 GM/50 ML BAG ONE (09:15)
[2020-01-05] MEDS ORDERED: Midazolam 2 mg/2 ml VIAL 1 mg/ml 2 ml VIAL (2 mg) ONE (10:35)
[2020-01-05] MEDS ORDERED: Succinylcholine 200 mg VIAL 20 mg/ml 10 ml VIAL (200 mg) ONE (12:14)
[2020-01-05] MEDS ORDERED: Propofol 10 MG/ML 20 ML BTL ONE ×2 (12:14→15:37)
[2020-01-05] MEDS ORDERED: Lidocaine 2% PF 5 ML VIAL ONE (12:14)
[2020-01-05] MEDS ORDERED: Rocuronium 50 mg VIAL 10 mg/ml 5 ml VIAL (50 mg) ONE ×2 (12:14→14:04)
[2020-01-05] MEDS ORDERED: ROPIVACAINE 5 MG/ML 30 ML BTL (0.5%) ONE (13:08)
[2020-01-05] MEDS ORDERED: fentaNYL 100 mcg/2 ml 50 MCG/ML VIAL ONE ×4 (13:33→16:31)
[2020-01-05] MEDS ORDERED: Dexamethasone IV 4 MG/ML VIAL 1 ml VIAL ONE (13:39)
[2020-01-05] MEDS ORDERED: Magnesium Hydroxide LIQ 30 ML UDC PO PRN (14:28)
[2020-01-05] MEDS ORDERED: diPHENhydraMINE IV 50 MG/ML 1 ml VIAL (BENADRYL) IV PRN (14:28)
[2020-01-05] MEDS ORDERED: Ondansetron 4 mg VIAL 2 MG/ML 2 ml VIAL IV PRN (14:28)
[2020-01-05] MEDS ORDERED: Morphine 2 MG/ML SYRINGE IV PRN (14:28)
[2020-01-05] MEDS ORDERED: Lactulose 30 ml UDC PO PRN (14:28)
[2020-01-05] MEDS ORDERED: Ondansetron ODT 4 mg TAB 4 MG TAB PO PRN (14:28)
[2020-01-05] MEDS ORDERED: diPHENhydraMINE 25 mg TAB PO PRN (14:28)
[2020-01-05] MEDS ORDERED: Metoclopramide 5 MG/ML VIAL (10 mg) ONE (15:39)
[2020-01-05] MEDS ORDERED: Ondansetron 4 mg VIAL 2 MG/ML 2 ml VIAL ONE (15:39)
[2020-01-05] MEDS ORDERED: Sugammadex 500 MG/5 ML 5 ml VIAL IV PUSH ONE (15:39)
[2020-01-05] MEDS ORDERED: Acetaminophen IV 1 GM/100ML 100 ML ONE (15:41)
[2020-01-05] MEDS ORDERED: fentaNYL 100 mcg/2 ml 50 MCG/ML VIAL IV SLOW PU PRN (17:22)
[2020-01-05] MEDS: Lactated Ringers 1000 ml BAG 1,000 ML IV SCH (17:32)
[2020-01-05] MEDS ORDERED: Loteprednol 0.5% OPH.SUSP(NF) 5 ML BTL BOTH EYES SCH (18:00)
[2020-01-05] MEDS: oxyCODONE/Acetamin 5/325 mg TAB PO PRN ×2 (18:06→22:44)
[2020-01-05] MEDS ORDERED: Pneumococcal Vac 23-Polyvalent IM ONE (19:00)
[2020-01-05] MEDS: Magnesium Hydroxide LIQ 30 ML UDC PO SCH (19:55)
[2020-01-05] MEDS: ceFAZolin 1 GM* X 3 DOSES POST-OP Q8H (AddVan) IVPB SCH (19:56)
[2020-01-05] MEDS ORDERED: ceFAZolin 1 GM in Dextrose (*) 1 GM/50 ML BAG IVPB SCH (20:30)
[2020-01-05] MEDS ORDERED: PTO:Loteprednol 0.5% OPH.SUSP(NF) 5 ML BTL BOTH EYES SCH (21:00)
[2020-01-06] MEDS: oxyCODONE/Acetamin 5/325 mg TAB PO PRN (04:23)
[2020-01-06] MEDS: ceFAZolin 1 GM* X 3 DOSES POST-OP Q8H (AddVan) IVPB SCH ×2 (04:24→12:46)
[2020-01-06] MEDS: Lactated Ringers 1000 ml BAG 1,000 ML IV SCH (04:26)
[2020-01-06 05:18] LABS: Hematocrit 32 % (35-47); Hemoglobin 10.9 g/dL (12.0-16.0); Mean Platelet Volume 8.6 fL (7.4-10.4); Platelet Count 197 10^3/uL (150-450)
[2020-01-06 05:38] LABS: BUN/Creatinine Ratio 18.7 (8-20); Calcium 9.5 mg/dL (8.6-10.3); EGFR African American 93.5 (>60); EGFR Non-African American 77.3 (>60); Potassium 4.1 mmol/L (3.5-5.0)
[2020-01-06] MEDS ORDERED: Timolol 0.5% OPTH.SOL BTL BOTH EYES SCH (09:00)
[2020-01-06] MEDS ORDERED: Vitamin THERAPEUTIC TAB PO SCH (09:00)
[2020-01-06] MEDS: Magnesium Hydroxide LIQ 30 ML UDC PO SCH (09:42)
[2020-01-06] MEDS ORDERED: Pneumococcal Vac 23-Polyvalent IM ONE (10:00)
[2020-01-06 11:04] VITALS: BP 119/57
== END 2020-01-06 14:08 | disposition home or self-care (01) ==
LOC: INTOOBSV 08:43 → AA 08:43 → SSU 14:28
PROVIDERS: ADMIT Orthopaedic Surgery Adult Reconstructive Orthopaedic Surgery; ATTEND Orthopaedic Surgery Adult Reconstructive Orthopaedic Surgery